=== PATIENT | female | born 1980 | race Caucasian/White ===

== ENCOUNTER 2016-12-16 05:43 | Emergency (ER) | payer MEDICAID ==
[2015-04-21 09:58] VITALS: BMI 37.0
[~2016-12-16 05:43] MED LIST: ADIPEX-P37.5 MG PO; AUGMENTIN 875-11 TAB PO; CYCLOBENZAPRINE10 MG PO; HYDROCODONE-APA1 TAB PO; IBUPROFEN600 MG PO; IBUPROFEN800 MG PO; PERCOCET 10/3251 TA1 PO; PERCOCET 5-3251 TAB PO; SOMA350 MG PO; TYLENOL #4 W/CO1 TAB PO
[2016-12-17] MEDS ORDERED: CELEXA40 MG PO (14:20)
[2016-12-17] MEDS ORDERED: KLONOPIN1 MG PO (14:20)
[2016-12-17] MEDS ORDERED: TYLENOL #4 W/CO1 TAB PO (14:21)
== END 2016-12-16 06:58 | disposition home or self-care (01) ==
LOC: D.ER 05:43
DX: M54.5 Low back pain (principal); G89.29 Other chronic pain; F17.200 Nicotine dependence, unspecified, uncomplicated

== ENCOUNTER 2016-12-16 09:31 | Emergency (ER) | payer MEDICAID ==
[2015-04-21 09:58] VITALS: BMI 37.0
[2016-12-16 11:00] LABS: BASOPHILS 0.2 % (0.0-2.0); EOSINOPHILS 0.2 % (0-7); HEMATOCRIT 44.4 % (36.0-48.0); HEMOGLOBIN 14.9 g/dL (12-16); IMMATURE GRANULOCYTES 0.5 % (0-5); LYMPHOCYTES 7.2 % (15-50); MCH 31.6 pg (26.0-34.0); MCHC 33.6 g/dL (31.0-37.0); MCV 94.1 fL (80.0-100.0); MEAN PLATELET VOLUME 9.8 fL (7.4-10.4); MONOCYTES 1.2 % (2-11); NEUTROPHILS 90.7 % (40-80); RBC 4.72 10x6/uL (4.00-5.40); RDW 14.1 % (11.5-14.5); WBC 13.2 10x3/uL (4.8-10.8)
[2016-12-16 11:01] LABS: PLATELET COUNT 266 10x3/uL (130-400)
[2016-12-16 11:10] LABS: ALBUMIN 3.5 g/dL (3.4-5.0); ALKALINE PHOSPHATASE 99 U/L (46-116); ALT (SGPT) 132 U/L (10-68); BILIRUBIN - TOTAL 0.33 mg/dL (0.2-1.3); CALC OSMOLALITY 274 mosm/kg (275-300); CALCIUM 8.9 mg/dL (8.5-10.1); CARBON DIOXIDE 27.1 mmol/L (21.0-32.0); CHLORIDE - SERUM 103 mmol/L (98-107); CREATININE - SERUM 0.8 mg/dL (0.6-1.3); GLUCOSE 137 mg/dL (74-106); POTASSIUM - SERUM 4.3 mmol/L (3.5-5.1); PROTEIN - SERUM 7.1 g/dL (6.4-8.2); SODIUM 137 mmol/L (136-145); UREA NITROGEN 9 mg/dL (7-18); eGFR NON AFRICAN AMERICAN 85 mL/min (90-120)
[2016-12-17] MEDS ORDERED: CELEXA40 MG PO (14:20)
[2016-12-17] MEDS ORDERED: KLONOPIN1 MG PO (14:20)
[2016-12-17] MEDS ORDERED: TYLENOL #4 W/CO1 TAB PO (14:21)
== END 2016-12-16 15:32 | disposition home or self-care (01) ==
LOC: D.ER 09:31
PROVIDERS: Emergency Medicine
DX: K80.50 Calculus of bile duct without cholangitis or cholecystitis without obstruction (principal); R10.11 Right upper quadrant pain

== ENCOUNTER 2016-12-17 13:05 | Inpatient (IN) | payer MEDICAID ==
[~2016-12-17] VITALS: Ht 149.9 cm; Wt 91.5 kg
[2016-12-17 14:09] LABS: BASOPHILS 0.1 % (0.0-2.0); EOSINOPHILS 0.2 % (0-7); HEMATOCRIT 41.7 % (36.0-48.0); HEMOGLOBIN 14.2 g/dL (12-16); IMMATURE GRANULOCYTES 0.6 % (0-5); LYMPHOCYTES 19.8 % (15-50); MCH 31.7 pg (26.0-34.0); MCHC 34.1 g/dL (31.0-37.0); MCV 93.1 fL (80.0-100.0); MEAN PLATELET VOLUME 9.7 fL (7.4-10.4); MONOCYTES 5.5 % (2-11); NEUTROPHILS 73.8 % (40-80); PLATELET COUNT 260 10x3/uL (130-400); RBC 4.48 10x6/uL (4.00-5.40); RDW 14.1 % (11.5-14.5)
[2016-12-17 14:11] LABS: WBC 17.9 10x3/uL (4.8-10.8)
--- NOTE | 2016-12-17 14:18 | NUR ---
PT ARRIVED TO ROOM WITH AT BEDSIDE. ORIENTED TO FLOOR AND SITUATION. WILL BEGIN ADMISSION WORK-UP AT THIS TIME.
[2016-12-17] MEDS ORDERED: CELEXA40 MG PO (14:20)
[2016-12-17] MEDS ORDERED: KLONOPIN1 MG PO (14:20)
[2016-12-17] MEDS ORDERED: TYLENOL #4 W/CO1 TAB PO (14:21)
[2016-12-17 14:23] VITALS: BP 150/86; BMI 37.9
[2016-12-17 14:23] LABS: INR 0.89 (0.85-1.17); PROTIME 11.8 SECONDS (11.6-15.0)
[2016-12-17 14:28] LABS: ALBUMIN 3.5 g/dL (3.4-5.0); ALKALINE PHOSPHATASE 80 U/L (46-116); AMYLASE - SERUM 58 U/L (25-115); BILIRUBIN - TOTAL 0.28 mg/dL (0.2-1.3); CALC OSMOLALITY 276 mosm/kg (275-300); CALCIUM 8.6 mg/dL (8.5-10.1); CARBON DIOXIDE 28.5 mmol/L (21.0-32.0); CHLORIDE - SERUM 105 mmol/L (98-107); CREATININE - SERUM 0.7 mg/dL (0.6-1.3); GLUCOSE 95 mg/dL (74-106); LIPASE 98 U/L (73-393); POTASSIUM - SERUM 3.7 mmol/L (3.5-5.1); PROTEIN - SERUM 6.8 g/dL (6.4-8.2); SODIUM 140 mmol/L (136-145); UREA NITROGEN 7 mg/dL (7-18); eGFR NON AFRICAN AMERICAN > 90 mL/min (90-120)
[2016-12-17 14:30] LABS: ALT (SGPT) 69 U/L (10-68)
[2016-12-17 15:28] LABS: APPEARANCE CLEAR (CLEAR); BILIRUBIN NEGATIVE (NEGATIVE); COLOR YELLOW (YELLOW); GLUCOSE NEGATIVE (NEGATIVE); KETONE NEGATIVE (NEGATIVE); LEUKOCYTE ESTERASE TRACE (NEGATIVE); NITRITE NEGATIVE (NEGATIVE); PROTEIN NEGATIVE (NEGATIVE); SPECIFIC GRAVITY 1.015 (1.005-1.020); UROBILINOGEN NORMAL (NORMAL)
[2016-12-17 15:31] LABS: UDS - AMPHET NEGATIVE QUAL (NEGATIVE); UDS - BARB NEGATIVE QUAL (NEGATIVE); UDS - BENZO NEGATIVE QUAL (NEGATIVE); UDS - COCAINE NEGATIVE QUAL (NEGATIVE); UDS - METH NEGATIVE QUAL (NEGATIVE); UDS - OPIATE POSITIVE QUAL (NEGATIVE); UDS - PCP NEGATIVE QUAL (NEGATIVE); UDS - THC NEGATIVE QUAL (NEGATIVE)
[2016-12-17 15:33] LABS: BACTERIA MODERATE /hpf (NONE SEEN); RED CELLS - URINE 0-5 /hpf (0-5)
[2016-12-17 15:34] LABS: MUCUS <1+ /lpf (NONE SEEN)
--- NOTE | 2016-12-17 15:34 | NUR ---
22 GUAGE PLACED TO L.FA X1 ATTEMPT. [address] R[address]FA [address] SCAN DRSG CDI AND SWAB CAPS IN USE. PT SITTING UP IN BED RESTING QUIETLY DENIES ANY CURRENT NEEDS. WILL CPOC.
[2016-12-17 17:19] VITALS: BP 124/74
--- NOTE | 2016-12-17 20:33 | NUR ---
RESTING IN BED. SOUNDLY ASLEEP. AT BEDSIDE. NONLABORED RESPIRATIONS ON ROOM AIR. PIV TO LFA WITH D5.45NS @ 125ML/HR. PT ALSO HAS 20G IN RFA THAT IS SALINE LOCKED. STATES HE "WATCHES THE TIME" TO MAKE SURE SHE GETS THE NEEDED PAIN MEDS SOON POSSIBLE. WILL MONITOR.
[2016-12-17 21:08] VITALS: BP 114/79
--- NOTE | 2016-12-17 22:27 | NUR ---
IVF INFUSING. REQUESTED PAIN AND NAUSEA MEDS GIVEN. PT DECLINED KLONOPIN, SAYING SHE HAS ALREADY TAKEN HER HOME MED ON THIS MED AND CELEXA. WILL MONITOR.
--- NOTE | 2016-12-17 22:40 | NUR ---
PT AWAKE AND WANTING HER DEMEROL AND HER ZOFRAN FOR PAIN AND NAUSEA. MEDS ADMINISTERED. PT ADMITTED THAT SPOUSE HAD GIVEN HER HOME MEDS OF KLONOPIN AND CELEXA.
--- NOTE | 2016-12-17 23:00 | NUR ---
IV ABT UP AND INFUSING. CALL LIGHT IN REACH. CPOC.
[2016-12-18 00:07] VITALS: BP 108/54
[2016-12-18 04:15] VITALS: BP 108/68
[2016-12-18 06:27] LABS: BASOPHILS 0.3 % (0.0-2.0); EOSINOPHILS 0.7 % (0-7); HEMATOCRIT 41.3 % (36.0-48.0); HEMOGLOBIN 13.6 g/dL (12-16); IMMATURE GRANULOCYTES 0.6 % (0-5); LYMPHOCYTES 40.5 % (15-50); MCH 31.3 pg (26.0-34.0); MCHC 32.9 g/dL (31.0-37.0); MCV 94.9 fL (80.0-100.0); MEAN PLATELET VOLUME 9.9 fL (7.4-10.4); MONOCYTES 7.3 % (2-11); NEUTROPHILS 50.6 % (40-80); PLATELET COUNT 254 10x3/uL (130-400); RBC 4.35 10x6/uL (4.00-5.40); RDW 14.6 % (11.5-14.5)
--- NOTE | 2016-12-18 06:29 | NUR ---
AND SPOUSE HAVE BEEN SOUNDLY ASLEEP SINCE LAST DOSE OF IV PAIN MED AND IV ZOFRAN ADMINISTERED. TELLING NURSE THAT PT NEEDED TO HAVE RECIEVED THE PAIN MED "EXACTLY EVERY 4 HOURS" FOR IT TO WORK. EXPLAINED TO SPOUSE THAT PT AND HE WERE SOUNDLY SLEEPING WHEN THE 4 HOUR TIME TAMMY CAME AROUND, SO THIS NURSE ALLOWED THEM TO SLEEP PAIN MEDICATION IS " NEEDED". WILL MONITOR.
[2016-12-18 06:40] LABS: CALC OSMOLALITY 276 mosm/kg (275-300); CALCIUM 8.1 mg/dL (8.5-10.1); CARBON DIOXIDE 28.4 mmol/L (21.0-32.0); CHLORIDE - SERUM 106 mmol/L (98-107); CREATININE - SERUM 0.8 mg/dL (0.6-1.3); GLUCOSE 102 mg/dL (74-106); POTASSIUM - SERUM 3.9 mmol/L (3.5-5.1); SODIUM 140 mmol/L (136-145); UREA NITROGEN 7 mg/dL (7-18); eGFR NON AFRICAN AMERICAN 85 mL/min (90-120)
--- NOTE | 2016-12-18 07:36 | NUR ---
LAYING ON RIGHT SIDE, DENIES NEEDS AT THIS TIME. NPO STATUS AT THIS TIME. D 5 1/2 NS NS INFUSING AT 125 CC/HR, RIGHT FA SEEN WITH SALINE LOCK. WILL CONTINUE TO MONITOR.
[2016-12-18 08:06] VITALS: BP 115/65
[2016-12-18 10:25] VITALS: Ht 149.9 cm; Wt 91.5 kg
[2016-12-18 11:55] VITALS: BP 135/88
[2016-12-18 12:47] LABS: ALBUMIN 2.9 g/dL (3.4-5.0); BILIRUBIN - INDIRECT 0.26 mg/dL (0.00-1.00); BILIRUBIN - TOTAL 0.31 mg/dL (0.2-1.3); PROTEIN - SERUM 5.9 g/dL (6.4-8.2)
[2016-12-18 12:48] LABS: BILIRUBIN - DIRECT 0.05 mg/dL (0.00-0.30)
--- NOTE | 2016-12-18 13:01 | NUR ---
PATIENT AND SPOUSE ARE ASLEEP IN THE BED TOGETHER. WILL CONTINUE TO MONITOR.
--- NOTE | 2016-12-18 14:52 | NUR ---
PATIENT RATES PAIN 9/10 TO BACK AREA. TEXTING ON PHONE. REQUESTING JELLO, GIVEN. WILL CONTINUE TO MONITOR.
[2016-12-18 15:03] VITALS: BP 144/83
--- NOTE | 2016-12-18 15:04 | NUR ---
PATIENT UP AMBULATING HALLWAY WITH SPOUSE. INSTRUCTED TO NOT LEAVE THE FLOOR, STATES TO UNDERSTANDING.
--- NOTE | 2016-12-18 19:03 | NUR ---
LAYING IN BED, AAOX3, SKIN WARM AND DRY, RESP UNLABORED, COMPLAINING OF LOWER ABDOMEN PAIN LEVEL 9, DEMEROL AND ZOFRAN GIVEN IVP, IV PATENT TO LEFT FOREARM, FAMILY AT BEDSIDE, NO DISTRESS NOTED
[2016-12-18 21:26] VITALS: BP 130/71
[2016-12-19 00:30] VITALS: BP 142/68
--- NOTE | 2016-12-19 00:54 | NUR ---
ROUGE MILLER AT BEDSIDE FOR VS. NEEDS ADDRESSED, CALL LIGHT IN REACH. WILL CONT TO MONITOR.
[2016-12-19 04:30] VITALS: BP 122/83
--- NOTE | 2016-12-19 06:45 | NUR ---
RESTING QUIELTY IN BED, NO DISTRESS NOTED
--- NOTE | 2016-12-19 07:26 | NUR ---
AM ROUNDING MADE WITH PATIENT APPEARING TO BE ASLEEP. SPOUSE AT BEDSIDE ASLEEP. IV SEEN TO LEFT FA OF D 5 1/2 NS INFUSING AT 20 CC/HR. ON ROOM AIR. WILL CONTINUE TO MONITOR
[2016-12-19 08:13] VITALS: BP 119/68
--- NOTE | 2016-12-19 09:18 | NUR ---
PATIENT REQUESTING DEMEROL AND ZOFRAN, RATES PAIN 9/10 TO BACK AND ABDMINAL AREA. IN BED WITH PATIENT. WATCHING TV. MEDS GIVEN PER REQUEST. WANTS TO TRY REGULAR FOOD FOR LUNCH, WILL ORDER.
[2016-12-19 12:43] VITALS: BP 114/57
--- NOTE | 2016-12-19 14:51 | NUR ---
1450-PATIENT AND NOW AWAKE, BEEN SLEEPING TOGETHER IN THE BED ON THEIR LEFT SIDE. COMPLAINTS OF PAIN 9/10 TO BACK AND STOMACH AREA. REQUESTING DEMERAOL AND ZOFRAN, GIVEN. WILL CONTINUE TO MONITOR.
[2016-12-19 16:00] VITALS: BP 115/47
--- NOTE | 2016-12-19 16:51 | NUR ---
9290-PATIENT AND UP AMBULATING IN HALLWAY. GAIT IS STEADY. WILL CONTINUE TO MONITOR.
--- NOTE | 2016-12-19 19:45 | NUR ---
RESUMED CARE OF PT, LYING IN BED RESPIRATIONS EVEN AND UNLABORED ON ROOM AIR. LEFT FOREARM INFUSING D5 1/2 NS @ 20. AT BEDSIDE. REQUESTS PAIN MEDICATION ALONG WITH CLONAPIN. CALL LIGHT IN REACH. WILL CONTINUE TO MONITOR. SEE NURSE ASSESSMENT.
[2016-12-19 21:24] VITALS: BP 100/60
[2016-12-20 00:30] VITALS: BP 135/80
--- NOTE | 2016-12-20 01:33 | NUR ---
WAX ENGRAVER AT BEDSIDE TO OBTAIN VITALS, CALL LIGHT IN REACH. WILL CONTINUE WITH PLAN OF CARE.
[2016-12-20 04:30] VITALS: BP 128/65
--- NOTE | 2016-12-20 06:40 | NUR ---
DEMEROL GIVEN FOR BACK, ABDOMINAL, AND LEG PAIN. FAMILY AT BEDSIDE. CALL LIGHT IN REACH.
[2016-12-20 08:32] VITALS: BP 139/74
[2016-12-20 12:30] VITALS: BP 112/60
[2016-12-20 16:44] VITALS: BP 116/58
[2016-12-20 20:36] VITALS: BP 119/51
--- NOTE | 2016-12-20 23:39 | NUR ---
MARKETING ANALYTICS LEAD AT BEDSIDE FOR VS, NEEDS ADDRESSED AT THIS TIME. CALL LIGHT IN REACH. CONT TO MONITOR.
--- NOTE | 2016-12-21 01:15 | NUR ---
IV INFILTRATED, HAD ICU COME TRY TO RESITE, THEY TRIED FOUR ATTEMTS,
[2016-12-21 01:19] VITALS: BP 133/69
[2016-12-21 05:06] VITALS: BP 124/72
[2016-12-21 05:36] LABS: BASOPHILS 0.3 % (0.0-2.0); EOSINOPHILS 1.2 % (0-7); HEMOGLOBIN 13.2 g/dL (12-16); IMMATURE GRANULOCYTES 0.7 % (0-5); LYMPHOCYTES 33.6 % (15-50); MCH 31.3 pg (26.0-34.0); MCV 94.8 fL (80.0-100.0); MEAN PLATELET VOLUME 9.7 fL (7.4-10.4); NEUTROPHILS 55.2 % (40-80); PLATELET COUNT 251 10x3/uL (130-400); RBC 4.22 10x6/uL (4.00-5.40); RDW 13.9 % (11.5-14.5); WBC 9.7 10x3/uL (4.8-10.8)
--- NOTE | 2016-12-21 05:50 | NUR ---
VISITING WITH , CALL LIGHT IN REACH
[2016-12-21 05:51] LABS: CALC OSMOLALITY 276 mosm/kg (275-300); CALCIUM 8.4 mg/dL (8.5-10.1); CARBON DIOXIDE 28.2 mmol/L (21.0-32.0); CHLORIDE - SERUM 103 mmol/L (98-107); CREATININE - SERUM 0.8 mg/dL (0.6-1.3); GLUCOSE 103 mg/dL (74-106); POTASSIUM - SERUM 4.2 mmol/L (3.5-5.1); SODIUM 139 mmol/L (136-145); UREA NITROGEN 9 mg/dL (7-18); eGFR NON AFRICAN AMERICAN 85 mL/min (90-120)
[2016-12-21 08:12] VITALS: BP 122/77
--- NOTE | 2016-12-21 08:53 | NUR ---
IV access-22 gauge inserted in right hand x 1 for saline lock. Marla ApodacaRN
[2016-12-21 12:14] VITALS: BP 144/79
--- NOTE | 2016-12-21 15:46 | NUR ---
Patient Name: BEREKET ROMANO Admission Status: Elective Accout number: [id number] Admission Date: 12-17-2016 : 1980 Admission Diagnosis:RIGHT LOWER QUADRANT PAIN Attending: CAITLIN Current LOS: 4 Anticipated DC Date: Planned Disposition: Home Primary Insurance: MEDICAID [place] Discharge Planning Comments: * Is the patient Alert and Oriented? Yes 0 * How many steps to enter\exit or inside your home? NONE 0 * PCP DR. CHANTALE TRIVEDI 0 * Pharmacy [facility] 0 * Preadmission Environment Home with Family 0 * ADLs Independent 0 * Equipment Nebulizer 0 * Other Equipment NO MEDICAL EQUIPMENT PROVIDER PREFERENCE 0 * List name and contact numbers for known caregivers / representatives who currently or will assist patient after discharge: ALEXIS MORENO, 0 * Community resources currently utilized None 0 * Please name any agencies selected above. NONE 0 * Additional services required to return to the preadmission environment? No 0 * Can the patient safely return to the preadmission environment? Yes 0 * Has this patient been hospitalized within the prior 30 days at any hospital? No 0 CM MET WITH PT IN ROOM TO DISCUSS DISCHARGE PLANNING AND NEEDS. PT REPORTS LIVING AT HOME INDEPENDENTLY WITH HER ALEXIS. PT HAS A NEBULIZER AND NO MEDICAL EQUIPMENT PROVIDER. PT HAS NO OUTSIDE SERVICES ASSISTING IN THE HOME. CM DISCUSSED AVAILABILITY OF HOME HEALTH, REHAB SERVICES AND MEDICAL EQUIPMENT. PT DENIES DISCHARGE NEEDS, REPORTS HER ALEXIS WILL PICK HER UP FOR DISCHARGE HOME. PT PLANS TO DISCHARGE HOME WITH ALEXIS WITH NO ANTICIPATED DISCHARGE NEEDS. CM TO FOLLOW AND ASSIST NEEDED. Per Diem Nurse: Angel Hilario
[2016-12-21 15:59] VITALS: BP 112/65
--- NOTE | 2016-12-21 18:42 | NUR ---
CONSENTS OBTAINED FOR PROCEDURE WITH AND FOR TOMORROW. PT VERBALIZES UNDERSTANDING TO BE NPO AFTER MIDNIGHT. NO FURTHER NEEDS AT THIS TIME. CL IN REACH, BED IN LOWEST, SIDE RAILS X2. WILL CPOC.
--- NOTE | 2016-12-21 19:32 | NUR ---
RECEIVED REPORT, PT VISITING WITH FAMILY, CAMILLEHAND-D5 10/25 NS@ 75, DENIES ANY NEEDS, CALL LIGHT IN REACH, WILL CONTINUE TO MONITOR
[2016-12-21 20:00] VITALS: BP 126/71
--- NOTE | 2016-12-21 23:44 | NUR ---
VACUUM EVAPORATION OPERATOR AT BEDSIDE FOR VS, NEEDS ADDRESSED. CALL LIGHT IN REACH.CONT TO MONITOR.
[2016-12-22] VITALS: BP 113/65
--- NOTE | 2016-12-22 01:54 | NUR ---
SLEEPING, AT BEDSIDE, CALL LIGHT IN REACH
[2016-12-22 04:00] VITALS: BP 161/94
--- NOTE | 2016-12-22 07:20 | NUR ---
RECEIVED REPORT FROM NIGHT NURSE. PATIENT GONE TO OR.
--- NOTE | 2016-12-22 10:53 | NUR ---
THE PATIENT APPEARS SEDATED AND IS SLEEPING. WHEN AWAKENED SHE REPORTS PAIN OF A 10.
[2016-12-22 11:18] VITALS: BP 143/89
--- NOTE | 2016-12-22 12:20 | NUR ---
1130 BACK FROM OR . WARM AND DRY ABEBE DRAINING YELLOW URING. DRESSING CDI. CO PAIN. DEMEROL BI ARCHITECT STARTED. 1.8 MG FOR PRIMING. PATIENT CTDB. WILL CONTINUE TO MONITOR.
[2016-12-22 12:45] VITALS: BP 136/77
[2016-12-22 13:36] LABS: ANION GAP 14.3 mmol/L (8-16); CALCIUM 8.6 mg/dL (8.5-10.1); CARBON DIOXIDE 26.6 mmol/L (21.0-32.0); CREATININE - SERUM 0.9 mg/dL (0.6-1.3); POTASSIUM - SERUM 3.9 mmol/L (3.5-5.1)
--- NOTE | 2016-12-22 14:27 | NUR ---
INFORMED PATIENT SHE IS ON A CLEAR LIQUID DIET. HAS BROUGHT A MILKSHAKE. INFORMED PATIENT SHE CAN NOT DRINK THE SHAKE. PATIENT REPLIED WHEN NURSE LEAVES THE ROOM, SHE WILL DRINK IT. INFORMED PATIENT OF CONSQUENCES OF NOT STAYING ON CLEAR LIQUID DIET. ALSO PATIENT WANTED ONLY HER CELEXA. WHEN NURSE CAME TO ROOM TO GIVE CELEXA, PATIENT DECIDED SHE WANTED KLOPIN AND FLEXERIL. BOTH WERE GIVEN. PT ALSO WAS GIVEN ZOFRAN IV FOR NAUSEA. PT CTDB.
--- NOTE | 2016-12-22 16:53 | NUR ---
CO PAIN EVEN WITH CONT DEMEROL HAND STONER. TORADOL GIVEN SCHEDULED. PT RESTING QUIETLY ON TABLET. CLEAR LIQUID TRAY IN.
[2016-12-22 17:41] VITALS: BP 139/76
--- NOTE | 2016-12-22 19:30 | NUR ---
RECEIVED REPORT, IV-R.HAND-LR@ 100, ON TOOLMAKER PUMP-10MG, Q10MIN, Q4HRS LOCKOUT, HAS ANDRAE, AT BEDSIDE, CALL LIGHT IN REACH, WILL CONTINUE TO MONITOR
[2016-12-22 20:00] VITALS: BP 137/77
[2016-12-23] VITALS: BP 114/70
--- NOTE | 2016-12-23 00:14 | NUR ---
FINISHER FIBERGLASS BOAT PARTS AT BEDSIDE TO OBTAIN VITALS, CALL LIGHT IN REACH. WILL CONTINUE WITH PLAN OF CARE.
[2016-12-23 04:00] VITALS: BP 140/82
[2016-12-23 06:12] LABS: BASOPHILS 0.1 % (0.0-2.0); EOSINOPHILS 0.9 % (0-7); HEMOGLOBIN 13.2 g/dL (12-16); IMMATURE GRANULOCYTES 0.5 % (0-5); LYMPHOCYTES 13.3 % (15-50); MCH 32.2 pg (26.0-34.0); MCHC 33.8 g/dL (31.0-37.0); MCV 95.1 fL (80.0-100.0); MEAN PLATELET VOLUME 9.9 fL (7.4-10.4); MONOCYTES 6.8 % (2-11); NEUTROPHILS 78.4 % (40-80); PLATELET COUNT 247 10x3/uL (130-400); RDW 14.2 % (11.5-14.5); WBC 17.6 10x3/uL (4.8-10.8)
[2016-12-23 06:40] LABS: CALC OSMOLALITY 278 mosm/kg (275-300); CALCIUM 8.7 mg/dL (8.5-10.1); CARBON DIOXIDE 28.3 mmol/L (21.0-32.0); CHLORIDE - SERUM 104 mmol/L (98-107); CREATININE - SERUM 0.7 mg/dL (0.6-1.3); POTASSIUM - SERUM 4.4 mmol/L (3.5-5.1); SODIUM 141 mmol/L (136-145); UREA NITROGEN 7 mg/dL (7-18); eGFR NON AFRICAN AMERICAN > 90 mL/min (90-120)
[2016-12-23 06:45] LABS: GLUCOSE 104 mg/dL (74-106)
--- NOTE | 2016-12-23 07:25 | OP ---
PATIENT NAME: BEREKET ROMANO MEDICAL RECORD: [id number] :78 LOCATION:D.M2 D.2129 ADMISSION DATE:12/17/16 SURGEON: CONSUELO JENNINGS MD DATE OF OPERATION: 12/22/2016 PREOPERATIVE DIAGNOSES: Pelvic pain, ovarian cyst. POSTOPERATIVE DIAGNOSES: Pelvic pain, ovarian cyst. PROCEDURE: Laparoscopy, laparotomy, lysis of adhesions, right salpingo-oophorectomy. SURGEON: Consuelo Jennings MD ANESTHESIA: General. FINDINGS: Multiple adhesions precluding adequate visualization of the right adnexa with the laparoscope. A 4-5 cm cystic mass in the right adnexa consistent with right ovary and tube. ESTIMATED BLOOD LOSS: 100 cc. COMPLICATIONS OF SURGERY: None. OPERATIVE NOTE: The patient was taken to the OR and under adequate general anesthesia, prepped and draped in the usual manner for abdominal and vaginal procedures with legs in floating boot Carl stirrups. A sponge stick was placed in the vagina to allow manipulation of the vaginal apex. Singh catheter was inserted. An elliptical incision was then made at the umbilicus and extended through subcutaneous tissue and fascia and peritoneum. The laparoscopic trocar sleeve was then inserted and visualization with the laparoscope revealed the above listed findings. It was not possible to visualize the right adnexa even after making a second puncture in the left lower quadrant in order to allow operative instruments to manipulate that area laparoscopy was then abandoned. Instruments removed. A transverse incision made in the lower abdomen and extended in a Pfannenstiel manner through subcutaneous tissue and fascia. Muscles divided in the midline. Careful dissection was begun to free the right adnexa, this took a considerable amount of care and time. Upon the exposure of the right adnexa, a 4-5 cm cystic appearing mass consistent with ovary and tube was encountered much time was taken to free the cystic structure intact, which was sent to pathology for further evaluation. Bowel was intact. The ureter was observed peristalsing on the right with no injury to bowel or ureter seen. The pelvis was then copiously irrigated and suctioned. A #1 chromic suture had been used for the infundibulopelvic ligament on the right. There was no further bleeding. Sponge and needle counts were correct. The fascial layer was then closed with a running noninterlocking #1 PDS loop suture. Skin reapproximated in 2 layers, first layer running noninterlocking 2-0 plain gut suture, followed by a subcuticular 2-0 plain gut suture. Dermabond was applied. Steri-Strip dressing was applied pressure dressing applied. Fascial layer at the umbilicus closed with a single interrupted #1 Vicryl suture closing the fascia. Laparoscopic skin incisions closed using Dermabond with Steri-Strip dressings then applied. At the end of procedure, sponge stick was removed from the vagina and again, all sponge and instrument and needle counts correct. The patient went to the recovery area in good condition. OPERATIVE REPORT [id number] BERNARDINO ROMANORamona CARRENONIKKO TRANSINT:[id number] Voice Confirmation ID: [id number] DOCUMENT ID: [id number] CONSUELO JENNINGS MD at 0725 CC: [id number] DICTATION DATE: 12/22/16 1219 DIAMOND SIZER: 12/22/16 1743 ADM IN [place] [id number] [place] [id number]
--- NOTE | 2016-12-23 07:30 | NUR ---
RECEIVED PT IN BED AAOX4 RESP UNLABORED SKIN W/D COLOR WNL NAD NOTED
[2016-12-23 07:49] VITALS: BP 136/78
[2016-12-23 12:36] VITALS: BP 110/51
[2016-12-23 16:21] VITALS: BP 101/57
[2016-12-23 20:00] VITALS: BP 106/52
[2016-12-24] VITALS: BP 123/68
[2016-12-24 04:00] VITALS: BP 135/77
[2016-12-24 06:21] LABS: BASOPHILS 0.2 % (0.0-2.0); EOSINOPHILS 1.6 % (0-7); HEMATOCRIT 35.8 % (36.0-48.0); HEMOGLOBIN 11.6 g/dL (12-16); IMMATURE GRANULOCYTES 0.8 % (0-5); LYMPHOCYTES 23.1 % (15-50); MCH 31.4 pg (26.0-34.0); MCHC 32.4 g/dL (31.0-37.0); MCV 96.8 fL (80.0-100.0); MEAN PLATELET VOLUME 10.4 fL (7.4-10.4); MONOCYTES 8.5 % (2-11); NEUTROPHILS 65.8 % (40-80); PLATELET COUNT 259 10x3/uL (130-400); RDW 14.9 % (11.5-14.5); WBC 13.6 10x3/uL (4.8-10.8)
[2016-12-24 06:35] LABS: ANION GAP 11.3 mmol/L (8-16); CALCIUM 8.4 mg/dL (8.5-10.1); CARBON DIOXIDE 29.7 mmol/L (21.0-32.0)
[2016-12-24 06:36] LABS: CREATININE - SERUM 0.9 mg/dL (0.6-1.3)
--- NOTE | 2016-12-24 07:32 | NUR ---
PT SITTING UP IN BED DENIES NEEDS WILL CONT TO MONITOR
[2016-12-24 08:13] VITALS: BP 122/59
[2016-12-24 11:52] VITALS: BP 144/73
[2016-12-24] MEDS ORDERED: NICODERM C1 PATCH .2 TD (12:32)
--- NOTE | 2016-12-24 12:33 | NUR ---
PT GOING HOME. DC PIV PER PT REQUEST. WASTED WASTE MANAGEMENT SPECIALIST MEDICATION IN PYXIS. WAITING ON DC ORDERS TO BE PLACED IN COMPUTER. THEN WILL WORK ON DC PAPERWORK
[2016-12-24] MEDS ORDERED: PEPCID20 MG PO (12:34)
[2016-12-24] MEDS ORDERED: K-DUR20 MEQ PO (12:38)
[2016-12-24] MEDS ORDERED: LASIX20 MG PO (12:38)
[2016-12-24] MEDS ORDERED: ZOFRAN ODT4 MG/UDTAB PO (12:39)
[2016-12-24] MEDS ORDERED: NYSTATIN ORAL SU5 ML PO (12:39)
[2016-12-24] MEDS ORDERED: ESTRADERM 0.00.05 MG TRANSDERM (12:42)
[2016-12-24] MEDS ORDERED: Demerol PO (12:42)
--- NOTE | 2016-12-24 13:25 | NUR ---
WENT OVER DC PAPERWORK WITH PT PT VERBALIZES UNDERSTANDING. GIVEN PT WRITTEN SCRIPTS FOR DEMORAL AND IBUPROFEN GIVEN. PT REFUSED WHEELCHAIR AND WALKED OUT WITH HER .
== END 2016-12-24 13:27 | disposition home or self-care (01) | DRG 743 ==
LOC: D.M2 13:05
PROVIDERS: Family Medicine; Internal Medicine Gastroenterology; Obstetrics & Gynecology; ADMIT Emergency Medicine
PROC: 0UT04ZZ Resection of Right Ovary, Percutaneous Endoscopic Approach (ICD-10-PCS; principal; 2016-12-22 09:30)
PROC: 0UN04ZZ Release Right Ovary, Percutaneous Endoscopic Approach (ICD-10-PCS; 2016-12-22 09:30)
DX: N83.291 Other ovarian cyst, right side (principal); R10.31 Right lower quadrant pain; R10.13 Epigastric pain; K76.0 Fatty (change of) liver, not elsewhere classified; K66.0 Peritoneal adhesions (postprocedural) (postinfection)

== ENCOUNTER 2016-12-29 19:20 | Emergency (ER) | payer MEDICAID ==
[2016-12-18 10:25] VITALS: BMI 37.1
[~2016-12-29 19:20] MED LIST changes: +CELEXA40 MG PO; +Demerol PO; +ESTRADERM 0.00.05 MG TRANSDERM; +K-DUR20 MEQ PO; +KLONOPIN1 MG PO; +LASIX20 MG PO; +NICODERM C1 PATCH .2 TD; +NYSTATIN ORAL SU5 ML PO; +PEPCID20 MG PO; +ZOFRAN ODT4 MG/UDTAB PO
[2016-12-29 21:50] LABS: ALKALINE PHOSPHATASE 120 U/L (46-116); ALT (SGPT) 35 U/L (10-68); BILIRUBIN - TOTAL 0.34 mg/dL (0.2-1.3); CALC OSMOLALITY 269 mosm/kg (275-300); CARBON DIOXIDE 26.8 mmol/L (21.0-32.0); CHLORIDE - SERUM 101 mmol/L (98-107); CREATININE - SERUM 0.8 mg/dL (0.6-1.3); GLUCOSE 97 mg/dL (74-106); POTASSIUM - SERUM 4.2 mmol/L (3.5-5.1); PROTEIN - SERUM 7.5 g/dL (6.4-8.2); SODIUM 136 mmol/L (136-145); UREA NITROGEN 6 mg/dL (7-18); eGFR NON AFRICAN AMERICAN 85 mL/min (90-120)
[2016-12-29 22:27] LABS: BASOPHILS 0.3 % (0.0-2.0); EOSINOPHILS 2.9 % (0-7); HEMATOCRIT 42.5 % (36.0-48.0); HEMOGLOBIN 14.1 g/dL (12-16); IMMATURE GRANULOCYTES 1.9 % (0-5); LYMPHOCYTES 24.9 % (15-50); MCHC 33.2 g/dL (31.0-37.0); MCV 93.4 fL (80.0-100.0); MEAN PLATELET VOLUME 9.9 fL (7.4-10.4); MONOCYTES 8.7 % (2-11); NEUTROPHILS 61.3 % (40-80); PLATELET COUNT 302 10x3/uL (130-400); RBC 4.55 10x6/uL (4.00-5.40); RDW 14.1 % (11.5-14.5); WBC 12.4 10x3/uL (4.8-10.8)
[2016-12-29 22:33] LABS: APPEARANCE CLEAR (CLEAR); BILIRUBIN NEGATIVE (NEGATIVE); COLOR YELLOW (YELLOW); GLUCOSE NEGATIVE (NEGATIVE); KETONE NEGATIVE (NEGATIVE); LEUKOCYTE ESTERASE TRACE (NEGATIVE); NITRITE NEGATIVE (NEGATIVE); PROTEIN NEGATIVE (NEGATIVE); UROBILINOGEN NORMAL (NORMAL)
[2016-12-29 22:34] LABS: BACTERIA MODERATE /hpf (NONE SEEN); EPITHELIAL CELLS 0-5 /hpf (0-5); RED CELLS - URINE 0-5 /hpf (0-5); WHITE CELLS - URINE 0-5 /hpf (0-5)
== END 2016-12-29 23:10 | disposition home or self-care (01) ==
LOC: D.ER 19:20
PROVIDERS: Emergency Medicine
DX: G89.18 Other acute postprocedural pain (principal); R50.82 Postprocedural fever; R50.9 Fever, unspecified; T81.4XXA Infection following a procedure, initial encounter; M54.9 Dorsalgia, unspecified; F17.200 Nicotine dependence, unspecified, uncomplicated

== ENCOUNTER 2017-01-02 17:37 | Emergency (ER) | payer MEDICARE ==
[2016-12-18 10:25] VITALS: BMI 37.1
[2017-01-02 19:10] LABS: BASOPHILS 1.6 % (0.0-2.0); EOSINOPHILS 8.9 % (0-7); HEMATOCRIT 41.3 % (36.0-48.0); HEMOGLOBIN 13.7 g/dL (12-16); IMMATURE GRANULOCYTES 3.1 % (0-5); LYMPHOCYTES 29.8 % (15-50); MCH 31.3 pg (26.0-34.0); MCHC 33.2 g/dL (31.0-37.0); MCV 94.3 fL (80.0-100.0); MONOCYTES 6.9 % (2-11); NEUTROPHILS 49.7 % (40-80); RBC 4.38 10x6/uL (4.00-5.40); RDW 13.5 % (11.5-14.5)
[2017-01-02 19:16] LABS: PLATELET COUNT 426 10x3/uL (130-400)
[2017-01-02 19:31] LABS: ALBUMIN 3.1 g/dL (3.4-5.0); ANION GAP 10.8 mmol/L (8-16); BILIRUBIN - TOTAL 0.22 mg/dL (0.2-1.3); CALCIUM 9.1 mg/dL (8.5-10.1); CARBON DIOXIDE 28.6 mmol/L (21.0-32.0); CREATININE - SERUM 0.9 mg/dL (0.6-1.3); POTASSIUM - SERUM 4.4 mmol/L (3.5-5.1); PROTEIN - SERUM 7.5 g/dL (6.4-8.2)
[2017-01-02 19:51] LABS: APPEARANCE CLEAR (CLEAR); BILIRUBIN NEGATIVE (NEGATIVE); COLOR STRAW (YELLOW); GLUCOSE NEGATIVE (NEGATIVE); KETONE NEGATIVE (NEGATIVE); LEUKOCYTE ESTERASE NEGATIVE (NEGATIVE); NITRITE NEGATIVE (NEGATIVE); PROTEIN NEGATIVE (NEGATIVE); SPECIFIC GRAVITY 1.015 (1.005-1.020); UROBILINOGEN NORMAL (NORMAL)
== END 2017-01-02 20:27 | disposition home or self-care (01) ==
LOC: D.ER 17:37
PROVIDERS: Family Medicine; Nurse Practitioner Acute Care
DX: G89.18 Other acute postprocedural pain (principal); F17.200 Nicotine dependence, unspecified, uncomplicated

== ENCOUNTER 2017-03-04 13:26 | Inpatient (IN) | payer MEDICAID ==
[~2017-03-04] VITALS: Ht 149.9 cm; Wt 94.8 kg
--- NOTE | ~2017-03-04 | OP ---
PATIENT NAME: BEREKET ROMANO MEDICAL RECORD: [id number] :78 LOCATION:D.MS [facility] ADMISSION DATE:03/06/17 SURGEON: RADHA ANDERSEN MD DATE OF OPERATION: 03/10/2017 PREOPERATIVE DIAGNOSES: 1. Chronic left lower quadrant wound. 2. Asthma. 3. Chronic obstructive pulmonary disease. 4. Tobacco dependence syndrome. 5. Gastroesophageal reflux disease. 6. Rheumatoid arthritis. POSTOPERATIVE DIAGNOSES: 1. Chronic left lower quadrant wound. 2. Asthma. 3. Chronic obstructive pulmonary disease. 4. Tobacco dependence syndrome. 5. Gastroesophageal reflux disease. 6. Rheumatoid arthritis. PROCEDURE: I&D of left lower quadrant wound with removal of suture granuloma. SURGEON: Radha Andersen MD. REPORT OF PROCEDURE: The patient's abdomen was prepped and draped in sterile fashion. A transverse incision was made overlying an area of indentation with a tract leading down towards the subcutaneous space. This was on the most lateral edge of a Pfannenstiel incision. As we opened up this tract, I could feel in the wound and felt a large collection of suture. As we dissected down to the suture, it was noted to be a Prolene suture. This suture was excised and completely removed. I saw no evidence of any further tract formation. There did not appear to be any tracts or cavities presenting medially. The entire skin tract leading down to the suture was removed and sent off for permanent specimen. At this point, we had just normal-appearing fatty tissue and at no point did we never see any signs of any purulence or infection. The subcutaneous tissues were irrigated out with peroxide and saline solution and then reapproximated with interrupted 3-0 Vicryl. A 10 mL of 0.25% Marcaine with epinephrine were infused into the surrounding tissues and the skin edge was reapproximated with running subcutaneous 5-0 Monocryl. We then dressed the wound with Dermabond. COMPLICATIONS: None. CONDITION: Stable. ANESTHESIA: General endotracheal and local. BLOOD LOSS: Minimal. TRANSINT:[id number] Voice Confirmation ID: [id number] DOCUMENT ID: [id number] OPERATIVE REPORT [id number] BEREKET ROMANO RADHA ANDERSEN MD CC: AMY JENNINGS MD [id number] DICTATION DATE: 03/10/17 1302 PATENT CLERK: 03/10/17 1447 ADM IN [facility] [address] [place] [address]
--- NOTE | ~2017-03-04 | CN ---
PATIENT NAME:BEREKET ROMANO MEDICAL RECORD: [id number] : 76 LOCATION:D.MS [facility]2201 ADMIT DATE: 03/04/17 ACCOUNT: [id number] CONSULTING PHYSICIAN: JESSICA RICCI MD REFERRING PHYSICIAN: CHANTALE LEUNG MD DATE OF CONSULTATION: 03/05/2017 Pulmonary Consultation CONSULT REQUESTING PHYSICIAN: Dr. Chantale Leung. REASON FOR CONSULTATION: Acute exacerbation of chronic obstructive pulmonary disease, dyspnea, acute cough. HISTORY OF PRESENT ILLNESS: Ms. Romano is a 36-year-old . She is sick for the last 3-4 days. Initially, she started coughing, wheezing and shortness of breath. Whenever she coughs, she becomes severe shortness of breath. She cannot hold her breath. The cough is productive of white yellow color sputum production. There is no associated fever or chill. REVIEW OF SYSTEMS: Mainly in the history of present illness. PAST MEDICAL HISTORY: 1. History of childhood asthma. 2. Hypertension. 3. Gastroesophageal reflux disease. 4. Fibromyalgia. 5. Osteoarthritis. 6. Rheumatoid arthritis. 7. Chronic insomnia. PAST SURGICAL HISTORY: 1. Left knee arthroscopic surgery. 2. Cholecystectomy. 3. times 2. 4. She has a right oophorectomy in December 2016 with nonhealing anterior abdominal wound. PERSONAL AND SOCIAL HISTORY: The patient is . She lives with her . She is smoking 1-2 packs per day. She is a nondrinker. FAMILY HISTORY: Significant for hypertension, diabetes and CVA. PHYSICAL EXAMINATION: GENERAL: Now, the patient is lying comfortably in bed. She is not in acute distress. VITAL SIGNS: The blood pressure is 100/42, pulse is 107, respirations 20, temperature 98.1, and SPO2 is 97% on room air. HEENT: Conjunctivae is pink, sclerae nonicteric. NECK: Supple, no JVD. CHEST: Excursion is minimal wheeze on forceful expiration. HEART: Rhythm regular, normal sound, no murmur. ABDOMEN: Soft. Bowel sounds present. No hepatosplenomegaly. RECTAL: Deferred. EXTREMITIES: No cyanosis, no clubbing, no pedal edema. CONSULT REPORT [id number] BEREKET ROMANO SKIN: Warm, normal turgor. CENTRAL NERVOUS SYSTEM: The patient is awake and alert. There is no obvious cranial nerve abnormality. The gait was not tested. There anterior abdominal wall wound. OTHER LABORATORY DATA: CBC: The WBC is 13.4, hemoglobin 12.6, hematocrit is 37.9. Chemistry: Sodium 139, potassium 3.7, BUN is 14, creatinine 0.9, glucose 91. CHEST RADIOGRAPH: There is no acute infiltrate. IMPRESSION: 1. Acute exacerbation of chronic obstructive pulmonary disease. 2. History of childhood asthma. 3. Acute cough. 4. Leukocytosis. 5. Tracheobronchitis. 6. Tobacco dependence syndrome. 7. Gastroesophageal reflux disease. 8. Rheumatoid arthritis. RECOMMENDATION: Adjust the dose of methylprednisolone IV, albuterol and ipratropium nebulizer, start on Brovana, budesonide and nebulizer, Mucinex DM 2 tablets b.i.d., Tessalon Perles 200 mg t.i.d. GERD precaution, give and start omeprazole 40 mg daily. Follow up labs in the morning. Dr. Leung, once again thanks for involving me in the care of Ms. Romano. TRANSINT:[id number] Voice Confirmation ID: [id number] DOCUMENT ID: [id number] JESSICA RICCI MD CC: VIAK LINK MD [id number] DICTATION DATE: 03/05/17 1320 RAIL ENGINEER: 03/05/17 1519 ADM IN [place] [id number] [place] [id number]
[2017-03-04] MEDS ORDERED: PHENERGAN25 M1 PO (17:24)
[2017-03-04] MEDS ORDERED: AUGMENTIN 500-11 TA1 PO (17:26)
[2017-03-04] MEDS ORDERED: HYDROCODONE-APA1 TAB PO (17:28)
[2017-03-04] MEDS ORDERED: ULTRAM50 MG PO (17:29)
[2017-03-04 17:44] VITALS: BP 117/52; BMI 42.3
[2017-03-04 18:40] LABS: BASOPHILS 0.3 % (0-2); EOSINOPHILS 1.9 % (0-7); HEMATOCRIT 37.9 % (36.0-48.0); HEMOGLOBIN 12.6 g/dL (12-16); IMMATURE GRANULOCYTES 0.6 % (0-5); LYMPHOCYTES 25.1 % (15-50); MCH 31.5 pg (26.0-34.0); MCHC 33.2 g/dL (31.0-37.0); MCV 94.8 fL (80.0-100.0); MEAN PLATELET VOLUME 9.5 fL (7.4-10.4); MONOCYTES 5.4 % (2-11); NEUTROPHILS 66.7 % (40-80); WBC 13.4 10x3/uL (4.8-10.8)
[2017-03-04 18:41] LABS: PLATELET COUNT 290 10x3/uL (130-400)
[2017-03-04 18:54] LABS: ALBUMIN 3.5 g/dL (3.4-5.0); ANION GAP 9.8 mmol/L (8-16); BILIRUBIN - TOTAL 0.38 mg/dL (0.2-1.3); CALCIUM 9.4 mg/dL (8.5-10.1); CARBON DIOXIDE 30.8 mmol/L (21.0-32.0); CREATININE - SERUM 0.9 mg/dL (0.6-1.3); POTASSIUM - SERUM 3.6 mmol/L (3.5-5.1); PROTEIN - SERUM 7.5 g/dL (6.4-8.2)
--- NOTE | 2017-03-04 18:59 | NUR ---
PT AOX4 RESP EVEN AND NONLABORED PT HERE FOR COPD WITH WHEEZING [id number] ON EXPIRATION. ACTIVITY AD SABRINA WITH BATHROOM PRIVALIGES. PT DENIES NEEDS AT THIS TIME WILL CONTINUE TO MONITOR
[2017-03-04 20:00] VITALS: BP 135/67
--- NOTE | 2017-03-04 20:45 | NUR ---
PATIENT RESTING IN BED WITH AT BEDSIDE. PATIENT REQUESTED THAT THE DOCTOR BE PAGED ABOUT HER PAIN MEIDATION AND CELEXA THAT SHE TAKES AT HOME. PATIENT DENIES OTHER NEEDS AT THIS TIME. BED IN LOWEST POSITION AND CALL LIGHT WITHIN REACH. ENCOURAGED THE PATIENT TO CALL IF SHE HAS FURTHER NEEDS.
--- NOTE | 2017-03-04 20:55 | NUR ---
SPOKE WITH DR. TRIVEDI ABOUT PATIENT'S HOME TRAMADOL AND CELEXA AND HE AUTHORIZED THE MEDS OVER THE PHONE.
[2017-03-05] VITALS: BP 107/58
[2017-03-05 04:00] VITALS: BP 128/67
[2017-03-05] MEDS ORDERED: HYDROCODONE-APA1 TAB PO (06:15)
[2017-03-05 07:32] VITALS: BP 92/43
--- NOTE | 2017-03-05 08:05 | NUR ---
AWAKE AND ALERT. ORIENTED X3. NO C/O AT THIS TIME. LUNGS ARE DIMINISHED THROUGHOUT LUNG CAMARGO WITH NON PRODUCTIVE COUGH. SKIN IS INTACT WITHOUT REDNESS EXCEPT WOUND TO LEFT GROIN WHICH HAS A DRY INTACT DRESSING IN PLACE. IV TO LEFT FOREARM/AC AREA PATENT WITHOUT REDNESS AT INSERTION SITE. BREAKFAST SERVEED IN ROOM. DENIES NEEDS.
--- NOTE | 2017-03-05 10:12 | NUR ---
ATE MOST OF BREAKFAST. DENIES NEEDS.
[2017-03-05 11:20] VITALS: BP 108/42; Ht 149.9 cm; Wt 94.8 kg
--- NOTE | 2017-03-05 12:15 | NUR ---
LUNCH SERVED IN ROOM. ATE LESS THAN HALF. NO C/O AT THIS TIME. DENIES NEEDS.
[2017-03-05 15:26] VITALS: BP 100/43
--- NOTE | 2017-03-05 18:02 | NUR ---
ATE ALL OF SUPPER. NO C/O AT THIS TIME. AT BEDSIDE. DISCUSSED USE OF LEVAQUIN AND CELEXA. PATIENT AND AGREED TO GO WITH THE LEVAQUIN AND NOT TAKE THE CELEXA TODAY R/T BP DROPING. WILL MONITOR.
[2017-03-05 20:00] VITALS: BP 117/69
[2017-03-06] VITALS: BP 99/44
--- NOTE | 2017-03-06 03:57 | NUR ---
PATIENT'S BP IS 92/36. PATIENT WAS GETTING UP TO GO TO THE RESTROOM AND STATED THAT SHE "FELT DIZZY" TO REBECCA [place]. TONNY OFFERED 2X TO ASSIST THE PATIENT TO THE RESTROOM AND THE PATIENT REFUSED STATING "HE [] WILL DO IT" PATIENT'S BP WAS RECHECKED AT 0420, RESULTS 125/57.
[2017-03-06 04:00] VITALS: BP 125/57
[2017-03-06 05:34] LABS: BASOPHILS 0.1 % (0-2); EOSINOPHILS 0 % (0-7); HEMATOCRIT 39.3 % (36.0-48.0); HEMOGLOBIN 12.7 g/dL (12-16); IMMATURE GRANULOCYTES 1.1 % (0-5); LYMPHOCYTES 7.6 % (15-50); MCH 31.1 pg (26.0-34.0); MCHC 32.3 g/dL (31.0-37.0); MCV 96.1 fL (80.0-100.0); MEAN PLATELET VOLUME 9.6 fL (7.4-10.4); MONOCYTES 3.9 % (2-11); NEUTROPHILS 87.3 % (40-80); PLATELET COUNT 322 10x3/uL (130-400); RBC 4.09 10x6/uL (4.00-5.40); RDW 14.2 % (11.5-14.5); WBC 21.2 10x3/uL (4.8-10.8)
[2017-03-06 05:51] LABS: ANION GAP 13.4 mmol/L (8-16); CALCIUM 9.2 mg/dL (8.5-10.1); CARBON DIOXIDE 26.9 mmol/L (21.0-32.0); CREATININE - SERUM 0.9 mg/dL (0.6-1.3)
[2017-03-06 05:52] LABS: POTASSIUM - SERUM 4.3 mmol/L (3.5-5.1)
--- NOTE | 2017-03-06 08:04 | NUR ---
AWAKE AND ALERT. ORIENTED X3. C/O FEELING SOB THIS AM. O2 SAT WNL. LUNGS ARE CLEAR BILATERALLY, BUT SOMEWHAT DIMINISHED THROUGHOUT. NO COUGH NOTED. SKIN IS INTACT WITHOUT REDNESS EXCEPT WOUND TO LEFT LOWER GROIN WHICH HAS A DRY INTACT DRESSING IN PLACE. IV TO LEFT FOREARM AC AREA PATENT WITHOUT REDNESS AT INSERTION SITE. BREAKFAST SERVED IN ROOM. AT BEDSIDE.
[2017-03-06 09:06] VITALS: BP 131/70
--- NOTE | 2017-03-06 10:13 | NUR ---
REQUESTED AND GIVEN 50MG ULTRAM PO FOR C/O RIGHT GROIN PAIN LEVEL 9. SAID IT WAS HURTING FROM COUGHING SO MUCH. NO SIGNS OF PULL OR SPRAIN. WILL MONITOR. REFUSED OFFER OF HEAT.
[2017-03-06 11:48] VITALS: BP 98/51
--- NOTE | 2017-03-06 15:10 | NUR ---
DR TRIVEDI PAGED AGAIN RE PATIENT REQUEST TO CONTINUE HOME MED OF HYDROCODONE.
--- NOTE | 2017-03-06 16:15 | NUR ---
SPOKE WITH DR. FAROOQ GRIFFIN HYDROCODONE. NEW ORDERS RECEIVED.
[2017-03-06 16:44] VITALS: BP 99/48
--- NOTE | 2017-03-06 17:10 | NUR ---
GIVEN SCHEDULED HYDROCODONE AT THIS TIME. SUPPER SERVED IN ROOM. DENIES NEEDS. NO CHANGES NOTED.
--- NOTE | 2017-03-06 19:26 | NUR ---
DISCONNECTED PATIENT FROM IV. IS ASSISTING HER TO THE SHOWER. PATIENT AND DENIED ASSISTANCE. PATIENT ENCOURAGED TO CALL IF SHE NEEDS ASSISTANCE.
[2017-03-06 20:00] VITALS: BP 121/56
[2017-03-07] VITALS: BP 107/49
[2017-03-07 04:00] VITALS: BP 130/73
[2017-03-07 05:57] LABS: CALC OSMOLALITY 281 mosm/kg (275-300); CALCIUM 8.5 mg/dL (8.5-10.1); CARBON DIOXIDE 27.6 mmol/L (21.0-32.0); CHLORIDE - SERUM 106 mmol/L (98-107); CREATININE - SERUM 0.8 mg/dL (0.6-1.3); GLUCOSE 150 mg/dL (74-106); POTASSIUM - SERUM 3.9 mmol/L (3.5-5.1); SODIUM 140 mmol/L (136-145); UREA NITROGEN 12 mg/dL (7-18); eGFR NON AFRICAN AMERICAN 85 mL/min (90-120)
[2017-03-07 06:24] LABS: HEMATOCRIT 42.2 % (36.0-48.0); HEMOGLOBIN 13.7 g/dL (12-16); MCH 30.9 pg (26.0-34.0); MCHC 32.5 g/dL (31.0-37.0); MCV 95.3 fL (80.0-100.0); MEAN PLATELET VOLUME 9.8 fL (7.4-10.4); PLATELET COUNT 361 10x3/uL (130-400); RBC 4.43 10x6/uL (4.00-5.40); RDW 14.5 % (11.5-14.5); WBC 23.8 10x3/uL (4.8-10.8)
[2017-03-07 06:46] LABS: BASOPHILS 1 % (0-2); EOSINOPHILS 1 % (0-7); LYMPHOCYTES 10 % (15-50); MONOCYTES 4 % (2-11); NEUTROPHILS 81 % (40-80); PLATELET ESTIMATE NORMAL
--- NOTE | 2017-03-07 07:40 | NUR ---
PATIENT IS RESTING IN HER BED, LIGHTS OUT, WITH BREATHING TREATMENT MASK ON WITH VAPOR ACTIVE. SHE IS ALERT AND CONVERSES BRIEFLY. DISCUSSED HER WOUND CARE CONSULT ORDERED TODAY AND PAIN CONTROL. SHE IS WITHOUT STATED NEEDS. VSS, CALL LIGHT IS WITHIN HER REACH.
[2017-03-07 08:08] VITALS: BP 120/81
[2017-03-07 11:27] VITALS: BP 113/56
--- NOTE | 2017-03-07 12:37 | NUR ---
Wound Care Consult: Pt has a chronic open wound on left lower abdomen (@ scar). Had surgery there 12/22/16. Pt states it tunnels and will "pop" and then green drainage will pour out. Measurements: 0.3cm x 0.4cm x 2cm x 1.2cm @ 9 oclock x 1.5cm @ 12 oclock. Pt states there is also a tunnel at approx 6 oclock. Her currenty wound treatment is packing with 1/4" packing strip - sometimes plain packing and sometimes iodoform packing. I cleansed the area well and packed with iodoform gauze moistened with saline. Covered with folded 4x4s and secured with tegaderm. I recommend a surgical consult as this has become a chronic problem. Wound care will continue to monitor.
--- NOTE | 2017-03-07 14:47 | NUR ---
PATIENT REPORTS THAT SHE IS FEELING NAUSEATED, TACHYCARDIA NOTED. RRR. DIAPHORETIC. ABT INFUSION STOPPED. REPORTED TO MD. NEW ORDERS RECEIVED. NS INFUSION STARTED.
[2017-03-07 15:54] VITALS: BP 94/52
--- NOTE | 2017-03-07 19:00 | NUR ---
PATIENT RESTING WITH EYES CLOSED. AROUES TO VOICE. ORIENTED X4. RR EVEN AND UNLABORED. 0 S/S OF DISTRESS. STATES PAIN IS A 10/10. IV TO RIGHT BREAST PATENT WITH NO REDNESS OR SWELLING. INCISION TO LLQ OF ABD WELL APPROXIMATED WITH MINIMAL REDNESS. SCD'S IN ROOM BUT OFF. AT BEDSIDE. SRX2. BED LOW. CALL LIGHT WITHIN REACH.
--- NOTE | 2017-03-07 19:00 | NUR ---
PATIENT IN BED WATCHING TV. HOB 40 DEGREES. AAOX4. RR EVEN AND UNLABORED. 0 S/S OF DISTRESS. STATES PAIN IS A 7/10. IV TO LEFT FA PATENT WITH NO REDNESS OR SWELLING. DRESSING TO ABD CDI. AT BEDSIDE. SRX2. BED LOW. CALL LIGHT WITHIN REACH.
[2017-03-07 20:00] VITALS: BP 129/66
--- NOTE | 2017-03-07 21:00 | NUR ---
ASSESSMENT COMPLETE. NIGHTTIME MEDS GIVEN. NO OTHER NEEDS AT THIS TIME.
--- NOTE | 2017-03-08 02:15 | NUR ---
PATIENT GOT UP TO USE THE BATHROOM AND IT TRIGGERED A COUGHING FIT. SHE BECAME VERY SOB. RESPIRATORY NOTIFIED. PRN UPDRAFT GIVEN.
[2017-03-08 04:00] VITALS: BP 104/51
[2017-03-08 05:04] LABS: BASOPHILS 0.2 % (0-2); EOSINOPHILS 0 % (0-7); HEMATOCRIT 36.7 % (36.0-48.0); IMMATURE GRANULOCYTES 5.4 % (0-5); LYMPHOCYTES 11.4 % (15-50); MCH 31.1 pg (26.0-34.0); MCHC 32.7 g/dL (31.0-37.0); MCV 95.1 fL (80.0-100.0); MEAN PLATELET VOLUME 9.7 fL (7.4-10.4); MONOCYTES 4.8 % (2-11); NEUTROPHILS 78.2 % (40-80); PLATELET COUNT 346 10x3/uL (130-400); RBC 3.86 10x6/uL (4.00-5.40); RDW 14.5 % (11.5-14.5)
[2017-03-08 05:15] LABS: CALC OSMOLALITY 284 mosm/kg (275-300); CALCIUM 8.4 mg/dL (8.5-10.1); CARBON DIOXIDE 30.3 mmol/L (21.0-32.0); CHLORIDE - SERUM 107 mmol/L (98-107); CREATININE - SERUM 0.8 mg/dL (0.6-1.3); GLUCOSE 153 mg/dL (74-106); POTASSIUM - SERUM 4.1 mmol/L (3.5-5.1); SODIUM 141 mmol/L (136-145); UREA NITROGEN 15 mg/dL (7-18); eGFR NON AFRICAN AMERICAN 85 mL/min (90-120)
[2017-03-08 05:16] LABS: WBC 17.5 10x3/uL (4.8-10.8)
--- NOTE | 2017-03-08 06:00 | NUR ---
SOLUMEDROL GIVEN AND ULTRAM GIVEN FOR PAIN. DENIES ANY OTHER NEEDS AT THIS TIME.
--- NOTE | 2017-03-08 07:25 | NUR ---
A&O, DENIES NEEDS, 2L NC, ASSESSMENT COMPLETE, QUESTIONS ABOUT ABDOMINAL WOUND, BED LOWEST POSITION, CALL LIGHT IN REACH, WILL CONTINUE TO MONITOR
[2017-03-08 08:35] VITALS: BP 130/68
--- NOTE | 2017-03-08 09:09 | NUR ---
PATIENT IN LOW CLAY POSITION RESTING WITH EYES CLOSED. RESPIRATIONS EVEN AND UNLABORED. SIDE RAILS UP X2. BED IN LOW POSITION. CALL LIGHT IN REACH.
--- NOTE | 2017-03-08 12:40 | NUR ---
Patient Name: BEREKET ROMANO Admission Status: Urgent Accout number: [id number] Admission Date: 03-06-2017 : 1980 Admission Diagnosis:CHRONIC OBSTRUCTIVE PULMONARY DISEASE W (ACUTE) EXACERB Attending: CAITLIN Current LOS: 2 Anticipated DC Date: 03-11-2017 Planned Disposition: Home Health Service Primary Insurance: MEDICAID [place] Discharge Planning Comments: CM MET WITH PATIENT AND SPOUSE (MORGAN) REGARDING D/C NEEDS AND PLANS. PATIENT STATED SHE LIVES WITH HER SPOUSE AND HE WILL DRIVE HER HOME AT DISCHARGE. PATIENT HAS NO STEPS OR STAIRS TO ENTER HER HOME. PATIENT IS INDEPENDENT WITH HER CARE AND HER SPOUSE HELPS HER WITH HER MEDICATIONS. PATIENTS PCP IS DR. TRIVEDI AND PHARMACY IS [facility]. PATIENT IS CURRENT WITH [facility]. CM WILL CONTINUE TO FOLLOW PATIENT WITH D/C NEEDS AND PLANS. PCP DR. FAROOQ ELIZABETH- [phone] MORGAN (SPOUSE) [phone] Admissions Counselor: Ella Muñoz Is the patient Alert and Oriented? Yes 0 * How many steps to enter\exit or inside your home? 0 0 * PCP DR. TRIVEDI 0 * [email or web address] * Preadmission Environment Home with Family 0 * ADLs Partial Dependent 0 * Partial ADLs (Assistance needed) Medication Management 0 * Equipment None 0 * List name and contact numbers for known caregivers / representatives who currently or will assist patient after discharge: MORGAN (SPOUSE) [phone] 0 * Community resources currently utilized Home Health 0 * Please name any agencies selected above. [facility] 0 * Additional services required to return to the preadmission environment? Yes 0 * Can the patient safely return to the preadmission environment? Yes 0 * Has this patient been hospitalized within the prior 30 days at any hospital? No 0 Grand Total: 0
[2017-03-08 13:46] VITALS: BP 132/82
[2017-03-08 16:59] VITALS: BP 136/76
[2017-03-08 20:15] VITALS: BP 134/78
--- NOTE | 2017-03-08 21:21 | NUR ---
AWAKE,ALERT.NO COMPLAINTS.IV INFUSING TO LEFT FOREARM WIHTOUT REDNESS OR EDEMA. NOTED. DRSG TO LEFT LOWER ABD DRY INTACT. CL IN REACCH
[2017-03-08 23:38] VITALS: BP 132/72
--- NOTE | 2017-03-09 | NUR ---
NPO STATUS BEGINS NOW. SIGNAGE PLACED ON DOOR AND DISCUSSED WITH PT.
--- NOTE | 2017-03-09 00:28 | NUR ---
RESTING QUIETLY. NO DISTRESS NOTED. CL IN REACH. AT BEDSIDE.
[2017-03-09 05:19] LABS: BASOPHILS 0.3 % (0-2); EOSINOPHILS 0 % (0-7); HEMATOCRIT 37.4 % (36.0-48.0); HEMOGLOBIN 12.1 g/dL (12-16); IMMATURE GRANULOCYTES 8.3 % (0-5); LYMPHOCYTES 12.7 % (15-50); MCH 30.4 pg (26.0-34.0); MCHC 32.4 g/dL (31.0-37.0); MEAN PLATELET VOLUME 9.5 fL (7.4-10.4); MONOCYTES 5.5 % (2-11); NEUTROPHILS 73.2 % (40-80); PLATELET COUNT 321 10x3/uL (130-400); RBC 3.98 10x6/uL (4.00-5.40); RDW 14.3 % (11.5-14.5)
--- NOTE | 2017-03-09 05:30 | NUR ---
WATCHING TV. NO COMPLIANTS OF DISCOMFORT. CL IN REACH.
[2017-03-09 05:39] LABS: CALC OSMOLALITY 285 mosm/kg (275-300); CALCIUM 8.5 mg/dL (8.5-10.1); CARBON DIOXIDE 29.2 mmol/L (21.0-32.0); CHLORIDE - SERUM 106 mmol/L (98-107); CREATININE - SERUM 0.7 mg/dL (0.6-1.3); GLUCOSE 168 mg/dL (74-106); POTASSIUM - SERUM 3.8 mmol/L (3.5-5.1); SODIUM 141 mmol/L (136-145); UREA NITROGEN 14 mg/dL (7-18); eGFR NON AFRICAN AMERICAN > 90 mL/min (90-120)
[2017-03-09 06:30] VITALS: BP 136/72
--- NOTE | 2017-03-09 07:35 | NUR ---
RESTING, SOME COMPLAINTS OF PAIN IN LOWER RIGHT ABDOMEN NOT TIME FOR PAIN MEDS, DENIES OTHER NEEDS, BED LOWEST POSITION, ASSESSMENT COMPLETE, WILL CONTINUE TO MONITOR
[2017-03-09 08:01] VITALS: BP 137/63
[2017-03-09 12:46] VITALS: BP 142/84
[2017-03-09 16:17] VITALS: BP 120/81
--- NOTE | 2017-03-09 19:00 | NUR ---
BEDSIDE REPORT RECEIVED AND CARE OF PT ASSUMED. PT LYING IN SEMI CLAY'S POSITION VISITING WITH FAMILY MEMBER. IV IN LEFT BREAST PATENT WITH NS INFUSING AT 75 ML / HR. WILL MONITOR CLOSELY FOR NEEDS.
[2017-03-09 20:00] VITALS: BP 151/87
--- NOTE | 2017-03-09 20:15 | NUR ---
PT IN SHOWER WITH FAMILY MEMBERS ASSISTANCE.
--- NOTE | 2017-03-09 20:40 | NUR ---
HS MEDICATIONS GIVEN TO INCLUDE TRAMADOL PER PT REQUEST FOR PAIN. WILL CONTINUE TO MONITOR FOR NEEDS. FAMILY MEMBER IS AT BEDSIDE.
[2017-03-10] VITALS: BP 145/89
--- NOTE | 2017-03-10 01:11 | NUR ---
CALLED RT PER PT REQUEST FOR DARLEEN SWANSON.
[2017-03-10 04:00] VITALS: BP 158/86
[2017-03-10 05:14] LABS: BASOPHILS 0.4 % (0-2); EOSINOPHILS 0.1 % (0-7); HEMATOCRIT 36.2 % (36.0-48.0); IMMATURE GRANULOCYTES 9.7 % (0-5); LYMPHOCYTES 11.1 % (15-50); MCH 30.9 pg (26.0-34.0); MCHC 33.1 g/dL (31.0-37.0); MCV 93.3 fL (80.0-100.0); MEAN PLATELET VOLUME 9.3 fL (7.4-10.4); MONOCYTES 4.6 % (2-11); NEUTROPHILS 74.1 % (40-80); PLATELET COUNT 310 10x3/uL (130-400); RBC 3.88 10x6/uL (4.00-5.40); RDW 14.6 % (11.5-14.5); WBC 18.2 10x3/uL (4.8-10.8)
[2017-03-10 05:39] LABS: CALC OSMOLALITY 281 mosm/kg (275-300); CALCIUM 8.4 mg/dL (8.5-10.1); CARBON DIOXIDE 29.2 mmol/L (21.0-32.0); CHLORIDE - SERUM 105 mmol/L (98-107); CREATININE - SERUM 0.8 mg/dL (0.6-1.3); GLUCOSE 142 mg/dL (74-106); POTASSIUM - SERUM 3.7 mmol/L (3.5-5.1); SODIUM 140 mmol/L (136-145); UREA NITROGEN 14 mg/dL (7-18); eGFR NON AFRICAN AMERICAN 85 mL/min (90-120)
[2017-03-10 07:38] VITALS: BP 139/75
--- NOTE | 2017-03-10 08:45 | NUR ---
ASSESSMENT PER FLOW SHEET.PT NPO FOR SURGEY TODAY.DENIES PAIN.WANTS TO DO HEPI CLENS BATH WHEN HE COMES THIS AM.MONITOR
--- NOTE | 2017-03-10 10:28 | NUR ---
HEPI CLENS BATH AND BED CHANGE
--- NOTE | 2017-03-10 11:51 | NUR ---
PREMEDS ORDERED.PT TO OR VIA BED.IV ABX TO OR WITH PT.
--- NOTE | 2017-03-10 12:51 | NUR ---
Nutrition Follow Up: Chart reviewed. Noted pt to have an I&D today on abdominal wound. Pt was eating 79% meal avg on a regular diet prior to being NPO for surgery. Pt previously refused all supplements so will not send Jones at this time. +BM 03/10/17. Wt stable. Labs reviewed - Glucose elevated. Meds noted including NS @ 75 ml/hr, Solu-Medrol. Pt with good po intake prior to NPO diet. Rec resuming diet when medically feasible. RD will continue to monitor pt progress.
[2017-03-10 13:49] VITALS: BP 120/70
--- NOTE | 2017-03-10 13:53 | NUR ---
BACK FROM PACU VIA BED.INCISION SITE LEFT LOWER ABD CDI WITH GLUE IN PLACE,WITHOUT DRAINAGE.02 SATS 94% ON ROOM AIR.PT WITHOUT DISTRESS.BP 120/70,76,16,97.1 TEMP.AWAKE AND ALERT.MONITOR
--- NOTE | 2017-03-10 17:30 | NUR ---
PATIENT LAYING IN BED, FAMILY AT BEDSIDE, GETTING READY TO EAT DINNER. PATIENT IS CALM AND IN NO ACUTE DISTRESS WHILE CLAIMING 10/10 PAIN TO HER INCISION SITE. BED IN LOWEST LOCKED POSITION, BED RAILS UP x2, CALL LIGHT WITHIN REACH.
[2017-03-10 20:00] VITALS: BP 112/60
--- NOTE | 2017-03-10 20:30 | NUR ---
ASSESSMENT COMLPETE. NIGHTTIME MEDS GIVEN. SPOKE WITH MACHO ZHU AND OBTAINED ORDER FOR ULTRAM Q6H PRN FOR PATIENT'S PAIN. WILL REASSESS.
--- NOTE | 2017-03-10 23:30 | NUR ---
NYSTATIN HELD PER PATIENT REQUEST.
[2017-03-10 23:43] VITALS: BP 127/67
--- NOTE | 2017-03-11 03:16 | NUR ---
PATIENT SLEEPING WITH NO DISTRESS NOTED.
[2017-03-11 04:00] VITALS: BP 141/82
[2017-03-11 06:33] LABS: BASOPHILS 0.3 % (0-2); EOSINOPHILS 0.1 % (0-7); HEMATOCRIT 36.1 % (36.0-48.0); HEMOGLOBIN 12.1 g/dL (12-16); IMMATURE GRANULOCYTES 8.1 % (0-5); LYMPHOCYTES 11.3 % (15-50); MCH 31.6 pg (26.0-34.0); MCHC 33.5 g/dL (31.0-37.0); MCV 94.3 fL (80.0-100.0); MEAN PLATELET VOLUME 9.1 fL (7.4-10.4); MONOCYTES 5.3 % (2-11); NEUTROPHILS 74.9 % (40-80); PLATELET COUNT 304 10x3/uL (130-400); RBC 3.83 10x6/uL (4.00-5.40); RDW 14.7 % (11.5-14.5); WBC 18.6 10x3/uL (4.8-10.8)
[2017-03-11 06:54] LABS: ALBUMIN 2.5 g/dL (3.4-5.0); ALKALINE PHOSPHATASE 66 U/L (46-116); ALT (SGPT) 46 U/L (10-68); CALC OSMOLALITY 288 mosm/kg (275-300); CALCIUM 8.2 mg/dL (8.5-10.1); CARBON DIOXIDE 31.5 mmol/L (21.0-32.0); CHLORIDE - SERUM 108 mmol/L (98-107); CREATININE - SERUM 0.8 mg/dL (0.6-1.3); GLUCOSE 144 mg/dL (74-106); POTASSIUM - SERUM 3.7 mmol/L (3.5-5.1); PROTEIN - SERUM 5.7 g/dL (6.4-8.2); SODIUM 143 mmol/L (136-145); UREA NITROGEN 15 mg/dL (7-18); eGFR NON AFRICAN AMERICAN 85 mL/min (90-120)
--- NOTE | 2017-03-11 07:35 | NUR ---
PT AOX4 RESP EVEN AND SOB IV TO RIGHT BREAST PATENT AND INTACT SRX2 BED AT LOWEST SETTING CALL LIGHT WITHIN REACH PT DENIES NEEDS AT THIS TIME
[2017-03-11 07:46] VITALS: BP 161/83
[2017-03-11 11:51] VITALS: BP 143/72
[2017-03-11] MEDS ORDERED: NYSTATIN ORAL SU5 ML PO (12:50)
[2017-03-11] MEDS ORDERED: VIBRAMYCIN 100100 MG PO (12:50)
[2017-03-11] MEDS ORDERED: MUCINEX DM ER1 EAC1 PO (12:51)
[2017-03-11] MEDS ORDERED: BENZONATATE200 MG PO (12:51)
[2017-03-11] MEDS ORDERED: SINGULAIR10 MG PO (12:51)
[2017-03-11] MEDS ORDERED: PULMICORT0.5 MG/21 UPD (12:51)
[2017-03-11] MEDS ORDERED: FLORAJEN3 CAPS460 MG PO (12:51)
[2017-03-11] MEDS ORDERED: PREDNISONE10 MG PO (12:52)
[2017-03-11] MEDS ORDERED: OMNICEF300 MG PO (12:53)
[2017-03-11] MEDS ORDERED: FLOVENT DISKU250 MCG INH (13:33)
[2017-03-11] MEDS ORDERED: FLOVENT HFA 22012 GM INH (13:51)
--- NOTE | 2017-03-11 15:30 | NUR ---
IV TO RIGHT BREAST DISCONTINUED WITHOUT DIFFICULTY AT THIS TIME PT DENIES NEEDS AT THIS TIME
--- NOTE | 2017-03-11 15:40 | NUR ---
SEAN NOTE: SPOKE WITH PT ABOUT DISCHARGE NEEDS. NEBULIZER SET UP WITH [facility] AND WILL DELIVER TO PT HOME [place]. VERIFIED ADDRESS AND SENT TO BLANCHE AT [facility]. HE STATED THAT HE WOULD DELIVER TO PTS HOME TODAY. IS DRIVING PT HOME ANDIE MONACO RN
--- NOTE | 2017-03-11 15:52 | NUR ---
PT DISCHARGED VIA WHEELCHAIR VIA PRIVATE VEHICLE WITH DISCHARGE PAPERWORK IN HAND AT THIS TIME
--- NOTE | 2017-03-12 16:27 | NUR ---
Face sheet w/ post it note given to CM this late PM. Discharge notes reviewed. TC to patient x3 to verify if she had received a nebulizer. No answer and was unable to leave a message x2. Spoke with the patient. She did not have a nebulizer. TC to [facility] spoke with Caleb. Referred to contract recruiter. Received CB from Demetrio. Caleb had awaited faxed referral on Tuesday. No fax received no CB. Received CB from Haylee with [facility] and reviewed situation. Refaxed face sheet, order, pulmonary and family practice notes for Medicaid documentation. Haylee advised CM that nebulizer would be delivered today.
== END 2017-03-11 15:53 | disposition home or self-care (01) | DRG 920 ==
LOC: D.NM 13:26 → D.MS 16:52 → OBSVTIME 16:54 → D.MS 03-06 13:57
PROVIDERS: Family Medicine; Internal Medicine Pulmonary Disease; Surgery; ADMIT Emergency Medicine
PROC: 0JC80ZZ Extirpation of Matter from Abdomen Subcutaneous Tissue and Fascia, Open Approach (ICD-10-PCS; principal; 2017-03-10 11:30)
DX: T81.31XA Disruption of external operation (surgical) wound, not elsewhere classified, initial encounter (principal); J44.1 Chronic obstructive pulmonary disease with (acute) exacerbation; J45.901 Unspecified asthma with (acute) exacerbation; F17.203 Nicotine dependence unspecified, with withdrawal; K21.9 Gastro-esophageal reflux disease without esophagitis; M06.9 Rheumatoid arthritis, unspecified

== ENCOUNTER 2017-03-15 13:36 | Inpatient (IN) | payer MEDICARE, MEDICAID ==
[~2017-03-15] VITALS: Ht 149.9 cm; Wt 109.5 kg
[~2017-03-15 13:36] MED LIST changes: +AUGMENTIN 500-11 TA1 PO; +BENZONATATE200 MG PO; +FLORAJEN3 CAPS460 MG PO; +FLOVENT DISKU250 MCG INH; +FLOVENT HFA 22012 GM INH; +MUCINEX DM ER1 EAC1 PO; +OMNICEF300 MG PO; +PHENERGAN25 M1 PO; +PREDNISONE10 MG PO; +PULMICORT0.5 MG/21 UPD; +SINGULAIR10 MG PO; +ULTRAM50 MG PO; +VIBRAMYCIN 100100 MG PO
[2017-03-15 14:47] LABS: BASOPHILS 0.1 % (0-2); EOSINOPHILS 0.7 % (0-7); HEMATOCRIT 37.1 % (36.0-48.0); HEMOGLOBIN 12.2 g/dL (12-16); IMMATURE GRANULOCYTES 4.1 % (0-5); LYMPHOCYTES 11.2 % (15-50); MCH 31.2 pg (26.0-34.0); MCHC 32.9 g/dL (31.0-37.0); MCV 94.9 fL (80.0-100.0); MEAN PLATELET VOLUME 9.1 fL (7.4-10.4); MONOCYTES 6.2 % (2-11); NEUTROPHILS 77.7 % (40-80); PLATELET COUNT 265 10x3/uL (130-400); RBC 3.91 10x6/uL (4.00-5.40); RDW 14.6 % (11.5-14.5); WBC 15.4 10x3/uL (4.8-10.8)
[2017-03-15 15:00] LABS: APTT 21.8 SECONDS (22.8-39.4); INR 0.84 (0.85-1.17); PROTIME 11.4 SECONDS (11.6-15.0)
[2017-03-15 15:06] LABS: ALBUMIN 3.2 g/dL (3.4-5.0); ANION GAP 8.9 mmol/L (8-16); BILIRUBIN - TOTAL 0.39 mg/dL (0.2-1.3); CALCIUM 8.9 mg/dL (8.5-10.1); CARBON DIOXIDE 34.4 mmol/L (21.0-32.0); POTASSIUM - SERUM 4.3 mmol/L (3.5-5.1); PROTEIN - SERUM 6.5 g/dL (6.4-8.2)
--- NOTE | 2017-03-15 21:10 | NUR ---
REC VIA WC FROM ER. AMBULATED TO BED WITH STEADY GAIT. ALERT/ORIENTED X 4. IV ON RT BREAST INTACT SL. HAS A SURGICAL INCISION UNDER ABD FOLD ON LEFT SIDE. STATED FROM A HYSTERECTOMY IN DECEMBER. MULTIPLE BRUISES ON ARMS AND LEGS NOTED. STATED "I BRUISE EASY". ORIENTED TO ROOM AND CALL LIGHT.
--- NOTE | 2017-03-15 23:47 | NUR ---
ADMIN MORPHINE 4 MG IV PER REQUEST FOR C/O ABD/BACK PAIN LEVEL 9 ON NUMBER SCALE, DESCRIBED CRAMPING AND THROBBING. HER IS PRESENT IN ROOM STAYING THE NIGHT.
[2017-03-16 00:14] VITALS: BP 145/85; Ht 149.9 cm; Wt 109.5 kg
[2017-03-16 01:38] VITALS: BP 112/76
--- NOTE | 2017-03-16 04:30 | NUR ---
RESTING QUIETLY WITH EYES CLOSED. RR EVEN U/L. NO S/S OF PAIN OR DISCOMFORT.
[2017-03-16 07:47] VITALS: BP 135/73
[2017-03-16 08:42] LABS: BASOPHILS 0.1 % (0-2); EOSINOPHILS 1.7 % (0-7); HEMATOCRIT 36.7 % (36.0-48.0); HEMOGLOBIN 12.2 g/dL (12-16); LYMPHOCYTES 26.9 % (15-50); MCH 31.4 pg (26.0-34.0); MCHC 33.2 g/dL (31.0-37.0); MCV 94.3 fL (80.0-100.0); MEAN PLATELET VOLUME 8.8 fL (7.4-10.4); MONOCYTES 8.6 % (2-11); NEUTROPHILS 59.7 % (40-80); PLATELET COUNT 246 10x3/uL (130-400); RBC 3.89 10x6/uL (4.00-5.40); RDW 15.1 % (11.5-14.5)
--- NOTE | 2017-03-16 08:45 | NUR ---
SITTING UP IN BED IN NO ACUTE DISTRESS ON CELL PHONE. DR. ANDERSEN IN RM. SIDE RAILS UP X2. CALL LIGHT IN REACH. EXAM TO FAB BECKER REVEALED NO EDEMA PER DR. ANDERSEN. DENIES FURTHER NEEDS.
[2017-03-16 08:54] LABS: ANION GAP 9.5 mmol/L (8-16); CALCIUM 8.7 mg/dL (8.5-10.1); CARBON DIOXIDE 32.6 mmol/L (21.0-32.0); CREATININE - SERUM 0.9 mg/dL (0.6-1.3); POTASSIUM - SERUM 4.1 mmol/L (3.5-5.1)
--- NOTE | 2017-03-16 09:12 | NUR ---
SCD'S ON FAB LE
--- NOTE | 2017-03-16 11:27 | NUR ---
STATES PAIN LEVEL 8 IN RIGHT SIDE OF ABDOMEN. SITTING UP ON CELL PHONE IN NO ACUTE DISTRESS. MORPHINE 4MG IV GIVEN PER REQUEST. WILL CONTINUE TO MONITOR PAIN
[2017-03-16 11:40] VITALS: BP 123/69
[2017-03-16] MEDS ORDERED: ALDACTONE50 MG PO (13:11)
[2017-03-16] MEDS ORDERED: ANUSOL-HC25 MG RC (13:26)
[2017-03-16] MEDS ORDERED: COLACE100 MG PO (13:27)
--- NOTE | 2017-03-16 14:30 | NUR ---
DISCHARGE INSTRUCTIONS REVIEWED WITH PT. VERBAL AND WRITTEN ACKNOWLEDGEMENT RETURNED. TRANSPORTATION SHOULD BE HERE IN APPROX 1 HOUR PER PT.
--- NOTE | 2017-03-16 16:13 | NUR ---
IV DC'D WITH TIP INTACT. COVERED WITH 2X2 AND PAPER TAPE. DC'D TO VEHICLE VIA WHEELCHAIR WITH SPOUSE AND STOCK RANCH SUPERVISOR.
== END 2017-03-16 16:38 | disposition home or self-care (01) | DRG 379 ==
LOC: D.ER 13:36 → D.M2 20:05
PROVIDERS: Emergency Medicine; Surgery; ADMIT Family Medicine
DX: K92.2 Gastrointestinal hemorrhage, unspecified (principal); K43.2 Incisional hernia without obstruction or gangrene; K21.9 Gastro-esophageal reflux disease without esophagitis; R10.9 Unspecified abdominal pain; J44.9 Chronic obstructive pulmonary disease, unspecified

== ENCOUNTER 2017-03-17 18:30 | Inpatient (IN) | payer MEDICARE, MEDICAID ==
[~2017-03-17] VITALS: Ht 149.9 cm; Wt 112.3 kg
[~2017-03-17 18:30] MED LIST changes: +ALDACTONE50 MG PO; +ANUSOL-HC25 MG RC; +COLACE100 MG PO
--- NOTE | 2017-03-17 18:50 | NUR ---
184- RECEIVED PT VIA WHEELCHAIR. PT IS ALERT AND ORIENTED. UP AD SABRINA. ON ROOM AIR. WILL DO QUICKSTART AND MEDICATIONS AND PASS THIS ALONG IN REPORT.
--- NOTE | 2017-03-17 19:41 | NUR ---
SPOKE WITH MACHO ZHU, DAIRY HUSBANDMAN FOR [facility]. CONTINUE ALL HOME MEDICATIONS. CALL WITH ANY CHANGES.
[2017-03-17 20:00] VITALS: BP 136/86
--- NOTE | 2017-03-17 23:36 | NUR ---
NURSE ROUNDS 20:00 - PT AWAKE, ALERT, ORIENTED, AT BEDSIDE. PT DENIES ANY ACUTE NEEDS. HOME MEDS RECONCILED AND RESTARTED PER ORDER. IV PLACED IN LEFT BREAST PER PTS REQUEST GARCIA WHEN INFUSING, ALTHOUGH THERE IS NO REDNESS, STREAKING, OOZING, SWELLING, OR HEAT AT INJECTION SITE. WILL REMOVE AND RESITE PER PT REQUEST. CONTINUE TO MONITOR CLOSELY. BED LOW, CALL LIGHT IN REACH, SIDE RAILS X 2, HOB 30 DEGREES. PT IS UP AD SABRINA AT THIS TIME.
[2017-03-18] VITALS (7 sets, daily range): BP systolic 101–150; BP diastolic 58–86; Ht 149.9 cm; Wt 112.3 kg
[2017-03-18 06:40] LABS: BASOPHILS 0.1 % (0-2); HEMATOCRIT 37.5 % (36.0-48.0); HEMOGLOBIN 12.3 g/dL (12-16); IMMATURE GRANULOCYTES 1.4 % (0-5); LYMPHOCYTES 23.4 % (15-50); MCH 31.2 pg (26.0-34.0); MCHC 32.8 g/dL (31.0-37.0); MCV 95.2 fL (80.0-100.0); MEAN PLATELET VOLUME 9.2 fL (7.4-10.4); MONOCYTES 9.3 % (2-11); NEUTROPHILS 63.8 % (40-80); PLATELET COUNT 270 10x3/uL (130-400); RBC 3.94 10x6/uL (4.00-5.40); RDW 14.9 % (11.5-14.5); WBC 16.1 10x3/uL (4.8-10.8)
--- NOTE | 2017-03-18 07:16 | NUR ---
PT SITTING UP IN BED SLEEPING NO S/S DISTRESS NOTED WILL CONT TO MONITOR
--- NOTE | 2017-03-18 18:05 | NUR ---
PT SITTING UP IN BED REQUESTING TO SEE DR MENDENHALL AND DR ANDERSEN. BOTH ARE ALREADY GONE FOR TODAY. PT IS AWARE AND OK TO TALK WITH THEM TOMORROW PT DENIES OTHER NEEDS
[2017-03-19] VITALS: BP 114/53
--- NOTE | 2017-03-19 01:50 | NUR ---
ASSESSMENT COMPLETE, PT ON ROOMAIR, IV-RFA-NS @75, PT IS ABLIB, PT IS A&O, BED IS LOW, SRX2, FAMILY AT BEDSIDE, CALL LIGHT IN REACH, WILL CONTINUE PLAN OF CARE
[2017-03-19 04:00] VITALS: BP 113/62
--- NOTE | 2017-03-19 07:16 | NUR ---
PT SITTING UP IN BED CO PAIN IN STOMACH NOT YET TIME FOR PAIN MEDS, WILL GIVE WHEN TIME. PT DENIES OTHER NEEDS WILL CONT TO MONITOR
[2017-03-19 08:00] VITALS: BP 141/62
--- NOTE | 2017-03-19 09:07 | NUR ---
PT PIV INFILTRATED, DC WITH CATH TIP INTACT. TRIED TO RESITE TO PT LEFT CHEST PER PT REQUEST. ATTEMPTED X1 WITH NO SUCCESS. PT CLAIMS THAT TAWANA ON [facility] IS "THE BEST AT [facility], CAN SHE COME START ONE?" CALLED OVER TO MED [facility], TAWANA IS HERE TODAY AND WILL COME TRY AND START AN IV.
--- NOTE | 2017-03-19 11:09 | NUR ---
TAWANA FROM [place] RESITED PT TO R BREAST 20G X3 STICKS. SIGNED AND DATED. IV FLUIDS RUNNING WITHOUT ANY PROBLEMS.
[2017-03-19 11:37] LABS: BASOPHILS 0.1 % (0-2); EOSINOPHILS 1.9 % (0-7); IMMATURE GRANULOCYTES 1.4 % (0-5); LYMPHOCYTES 28.3 % (15-50); MCHC 32.4 g/dL (31.0-37.0); MCV 95.6 fL (80.0-100.0); MEAN PLATELET VOLUME 8.7 fL (7.4-10.4); MONOCYTES 8.4 % (2-11); NEUTROPHILS 59.9 % (40-80); PLATELET COUNT 248 10x3/uL (130-400); RBC 3.87 10x6/uL (4.00-5.40)
[2017-03-19 11:40] LABS: WBC 11.5 10x3/uL (4.8-10.8)
[2017-03-19 11:48] LABS: ANION GAP 10.2 mmol/L (8-16); CALCIUM 9.3 mg/dL (8.5-10.1); CARBON DIOXIDE 31.7 mmol/L (21.0-32.0); CREATININE - SERUM 1.1 mg/dL (0.6-1.3); POTASSIUM - SERUM 3.9 mmol/L (3.5-5.1)
[2017-03-19 12:00] VITALS: BP 121/67
--- NOTE | 2017-03-19 13:40 | NUR ---
CALLED TO PT ROOM PT CO SEVERE ABDOMINAL CRAMPING 08/02. PT IS EATING A FRIED APPLE PIE THAT HER BROUGHT HER ALONG WITH LUNCH THAT HE BROUGHT HER ALSO. GIVEN PT MEDICATIONS ASKED FOR.
--- NOTE | 2017-03-19 16:41 | NUR ---
DR MENDENHALL ON THE FLOOR EARLIER TO SEE PT. PT IS ASKING FOR A MUSIC LIBRARY ASSISTANT PUMP SO THAT "I WONT HAVE TO BOTHER STAFF ANYMORE FOR PAIN MEDS". TALKED TO DR MENDENHALL ABOUT THIS. HE SAID HE WOULD START PRN DEMEROL. GIVEN TO PT WHEN ASKED FOR FOR STOMACH CRAMPS 08/02.
--- NOTE | 2017-03-19 17:13 | NUR ---
PT SITTING UP IN BED EATING DINNER WILL CONT TO MONITOR
[2017-03-19 20:00] VITALS: BP 139/90
--- NOTE | 2017-03-19 20:13 | NUR ---
INITIAL ROUNDS COMPETEDA T 1915 HRS. PT WATCHING TV. NAD. ASSESSMENT COMPETED AT 1940 HRS. IV TO R BREAST WITH NS AT 75CC/HR. IV PATENT. LUNGS CTA. PALPABLE PERIPHERAL PULSES. ALERT AND ORIENTED TO PERSON, PLACE AND TIME. STATES PAIN LEVEL NOW 9/10. INFORMED DEMEROL WILL BE DUE AT 1999 HRS. PT STATED WILL TAKE SHOWER FIRTS. IV WRAPPED. BED LINENS CHANGED PER SPOUSE. PT CURRENTLY IN SHOWER. WILL CONTINUE TO MONITOR.
--- NOTE | 2017-03-19 21:30 | NUR ---
PM MEDS GIVNE. PT CONTINUES TO RATE PAIN 8/10 AFTER IV DMEROL GIVEN. PT AMBULATED 250 FEET WITH SPOUSE PRIOR TO DEMEROL ADMINISTREATION. GAIT EVEN AND STEADY. WILL CONTINUE TO MONITOR. SR UP X2, CALL LIGHT WITHIN REACH.
--- NOTE | 2017-03-19 22:44 | NUR ---
ULTRAM GIVRN FOR C/O ABD PAIN. PT REFUSES MILK OF MAGNESIA STATING SHE HAD 3BMS TODAY ALREADY. WILL CONTINUE TO MONITOR.
[2017-03-20] VITALS: BP 129/79
--- NOTE | 2017-03-20 01:41 | NUR ---
DEMEROL 25MG, ZOFRAN 4MG SIVP GIVEN FOR C/O ABD PAIN 07/03 AAT 0045 HRS. STATES PAIN NOW 06/02. WILL CONITNUE TO MONITOR.
--- NOTE | 2017-03-20 02:18 | NUR ---
PT SITTING IN RECLINER WATCHING TV. NO DISTRESS NOTED. WILL CONTINUE TO MONITOR.
[2017-03-20 04:00] VITALS: BP 122/71
--- NOTE | 2017-03-20 04:33 | NUR ---
NORCO 10, PHENERGAN 25MG PO GIVEN FOR C/O ABD PAIN AND NAUSEA. WILL CONTINUE TO MONITOR.
--- NOTE | 2017-03-20 05:49 | NUR ---
VSS THROUGHOUT NIGHT. PT CONTINUES TO HAVE C/O ABD PAIN 8-10 EVEN WITH IV DEMEROL AND PO NORCO AND ULTRAM. WILL CONTINUE TO MONITOR.
[2017-03-20 06:56] LABS: BASOPHILS 0.1 % (0-2); EOSINOPHILS 1.9 % (0-7); HEMATOCRIT 36.5 % (36.0-48.0); HEMOGLOBIN 11.6 g/dL (12-16); LYMPHOCYTES 24.7 % (15-50); MCH 30.9 pg (26.0-34.0); MCHC 31.8 g/dL (31.0-37.0); MCV 97.1 fL (80.0-100.0); MEAN PLATELET VOLUME 9.2 fL (7.4-10.4); MONOCYTES 8.9 % (2-11); NEUTROPHILS 63.4 % (40-80); PLATELET COUNT 263 10x3/uL (130-400); RBC 3.76 10x6/uL (4.00-5.40); RDW 15.4 % (11.5-14.5); WBC 10.8 10x3/uL (4.8-10.8)
--- NOTE | 2017-03-20 07:00 | NUR ---
RECEIVED REPORT. ASSUMED CARE OF PATIENT. CALL LIGHT WITHIN REACH. PATIENT ALERT/ORIENTED. SITTING UP IN BED. MALE VISITOR AT BEDSIDE. CALL LIGHT WITHIN REACH. DENIES NEEDS AT THIS TIME. IV CHECKED PATIENT STATES SHE THINKS IT IS INFILTRATED. NO S/S INFILTRATION TO RIGHT BREAST IV SITE. 20 GAUGE PATENT. NO DISTRESS.IV FLUIDS INFUSING ORDERED.
[2017-03-20 08:00] VITALS: BP 143/61
--- NOTE | 2017-03-20 08:27 | NUR ---
MEDICATED FOR PAIN AT THIS TIME. PATIENT STATES SHE CAN "SMELL" THE MEDICATION IT IS GIVEN IV PUSH. THEN PATIENT STATES THAT SHE THINKS HER IV IS INFILTRATED. INFORMED PATIENT THE FACT THAT SHE CAN "TASTE" AND "SMELL" THE MEDICATION IT IS GIVEN VIA SLOW IV PUSH, THE IV IS NOT INFILTRATED. IV WAS ALSO CHECKED PRIOR TO ADMINISTRATION OF MEDICATION AND DURING MORNING ASSESSMENT AT 0715 TO ENSURE PATENCY OF IV SITE TO RIGHT BREAST. IV IS PATENT. NO FURTHER COMPLAINTS FROM PATIENT AT THIS TIME.
--- NOTE | 2017-03-20 11:27 | NUR ---
MEDICATED FOR PAIN AT THIS TIME. 20 GAUGE IV REMOVED FROM RIGHT BREAST AT THIS TIME DUE TO INFILTRATION. SKIN FELT COOL UPON PALPATION. CATHETER TIP INTACT. 2X2 AND BANDAID APPLIED. NO DISTRESS. PATIENT TOLERATED IV CATHETER REMOVAL WELL. THIS MILLER HELPER HAS ASKED DEANGELO GOMEZ RN TO ASSIST WITH REINSERTING IV PATIENT IS DIFFICULT STICK. AWAITING FOR IV PLACEMENT AT THIS TIME. NO DISTRESS.
[2017-03-20 12:00] VITALS: BP 136/68
--- NOTE | 2017-03-20 12:00 | NUR ---
20 GUAGE IV PLACED X 1 STICK TO RIGHT WRIST. GOOD BLOOD RETURN, EASY FLUSH. TAPED, DATED AND SECURED. TOLERATED IV PLACEMENT WELL. IV FLUIDS INFUSING ORDERED. NOW CONSUMING NOON MEAL AT THIS TIME. NO DISTRESS. CALL LIGHT WITHIN REACH.
--- NOTE | 2017-03-20 13:30 | NUR ---
NOTIFIED PATIENT OF NEW ORDER FOR NYSTATIN POWDER. NOTIFIED PATIENT THAT IS WAS TOO EARLY TO GIVE ANY FURTHER MEDICATION FOR NAUSEA SHE WAS ADMINISTERED PHENERGAN 1.5 HOURS AGO. PATIENT STATED "THAT'S OKAY, I JUST MADE MY SELF SICK EATING ALL MY LUNCH". PATIENT HAD NO FURTHER REQUEST.
--- NOTE | 2017-03-20 15:30 | NUR ---
MEDICATED FOR PAIN AT THIS TIME. NO DISTRESS. CALL LIGHT WITHIN REACH.
--- NOTE | 2017-03-20 18:43 | NUR ---
MEDICATED FOR PAIN AT THIS TIME. NO DISTRESS.
[2017-03-20 20:00] VITALS: BP 94/76
--- NOTE | 2017-03-20 20:07 | NUR ---
INITIAL ROUNDS COMPLETED AT 1920 HRS. PT REQUESTNG PAIN MEDS. STATED LIBIA BAHENA JUST PALPATED HER ABD AND SHE WAS HURTING. [id number] SIVP GIVEN AT 1950 HRSJANETTE Herring HAND SL. ASSESSMETN COMPLETED AT THTAT TIME. BRUISES NOTED TO Nima MILTON AND Nima MORAN. LUNGS CTA. UP AD SABRINA. SPOUSE AT BEDSIDE. S R UP X2, CALL LIGHT WITHIN REACH.
[2017-03-20] MEDS ORDERED: TOUJEO SOL300 UNIT/1 SC (20:59)
[2017-03-21] VITALS: BP 140/77
--- NOTE | 2017-03-21 00:13 | NUR ---
PT RESTING WITH EYES CLOSED. RESP EVEN AND REGULAR. SR UP X2, CALL LIGHT WITHIN REACH.
--- NOTE | 2017-03-21 04:07 | NUR ---
PT RESTING WITH EYES CLOSED. RESP EVEN AND REGULAR. SR UP X2, CALL LIGHT WITHIN REACH.
[2017-03-21 04:35] LABS: BASOPHILS 0.2 % (0-2); HEMATOCRIT 36.5 % (36.0-48.0); HEMOGLOBIN 11.6 g/dL (12-16); IMMATURE GRANULOCYTES 1.1 % (0-5); LYMPHOCYTES 23.1 % (15-50); MCH 30.9 pg (26.0-34.0); MCHC 31.8 g/dL (31.0-37.0); MCV 97.1 fL (80.0-100.0); MONOCYTES 6.2 % (2-11); NEUTROPHILS 67.4 % (40-80); PLATELET COUNT 247 10x3/uL (130-400); RBC 3.76 10x6/uL (4.00-5.40); WBC 11.4 10x3/uL (4.8-10.8)
[2017-03-21 04:58] LABS: ANION GAP 12.3 mmol/L (8-16); CALCIUM 8.8 mg/dL (8.5-10.1); CARBON DIOXIDE 28.8 mmol/L (21.0-32.0); POTASSIUM - SERUM 4.1 mmol/L (3.5-5.1)
--- NOTE | 2017-03-21 06:08 | NUR ---
VSS THROUGHOUT NIGHT. PT STATES ABD PAIN ALWAYS 8-10/10. WILL CONTINUE TO MONITOR. SR UP X2, CALL LIGHT WITHIN REACH.
--- NOTE | 2017-03-21 08:58 | NUR ---
PT REQ AND REC'D PRN PAIN MEDICATION AND ZOFRAN WITH AM MEDICATIONS. WCTM.
[2017-03-21 09:30] VITALS: BP 153/79
[2017-03-21 12:23] VITALS: BP 107/59
[2017-03-21 17:06] VITALS: BP 139/62
[2017-03-21 20:33] VITALS: BP 128/65
--- NOTE | 2017-03-21 20:54 | NUR ---
ALERT/AWAKE WATCHING TV. ADMIN DEMEROL IV FOR C/O ABD PAIN LEVEL 10 ON NUMBER SCALE AND ZOFRAN FOR C/O NAUSEA. FLUSHED RT HAND IV AND ADMIN ZOSYN IV. DENIES ANY OTHER NEEDS. VISITOR PRESENT IN ROOM.
--- NOTE | 2017-03-22 00:21 | NUR ---
SITTING IN BEDSIDE CHAIR WATCHING TV. RATED PAIN LEVEL AT 5 ON NUMBER SCALE. REQUESTED A COLA.
[2017-03-22 01:51] VITALS: BP 144/95
[2017-03-22 05:48] VITALS: BP 122/77
--- NOTE | 2017-03-22 07:00 | NUR ---
PT WAS RECEIVED AT THE BEGINNING OF THIS SHIFT. IN BED AWAKE AND ORIENTED X 4. NO COMPLAINTS OF ANY PAIN OR DISCOMFORT AT THIS TIME. RT. HAND WITH SALINE LOCKED IV. WILL BE MONITORING HER THROUGHOUT THIS SHIFT AND ASSISTANCE WILL BE PROVIDED WITH HER ADL'S. VITAL SIGNS WNL. STABLE CONDITION OBSERVED.
[2017-03-22 08:00] VITALS: BP 100/51
[2017-03-22 11:58] VITALS: BP 110/45
--- NOTE | 2017-03-22 13:52 | NUR ---
Nutrition follow-up: Diet: low sodium PO intake 100% of meals Labs reviewed PO intake good at this time. RDN following.
[2017-03-22 16:00] VITALS: BP 124/69
--- NOTE | 2017-03-22 17:38 | NUR ---
PT WAS GIVEN DEMEROL AND ZOFRAN AT 10:15AM, NORCO 10MG AND PHENERGAN AT 12PM, DEMEROL AND ZOFRAN AT 3:10PM AND NORCO AND PHENERGAN AT 5:40PM ALL PER REQUEST. RT. HAND IV THAT IS SALINE LOCKED. AT BEDSIDE.
--- NOTE | 2017-03-22 19:36 | NUR ---
REC ORDER FROM MACHO ZHU APN TO RENEW DEMEROL 50MG IV Q 4HR PRN.
--- NOTE | 2017-03-22 20:22 | NUR ---
ADMIN SCHED MEDS AND DEMEROL 50MG IV PER REQUEST FOR C/O ABD PAIN LEVEL 10 ON NUMBER SCALE. REC UPDRAFT TX. NO OTHER NEEDS VOICED.
[2017-03-22 21:21] VITALS: BP 135/66
[2017-03-23] VITALS (7 sets, daily range): BP systolic 106–141; BP diastolic 44–89
--- NOTE | 2017-03-23 02:00 | NUR ---
ADMIN DEMEROL 50MG IV AND ZOFRAN IV PER REQUEST FOR C/O PAIN AND NAUSEA.
--- NOTE | 2017-03-23 03:00 | NUR ---
AMBULATING IN HALLWAY. REQUESTED TO USE A MICROWAVE TO HEAT SOME FOOD.
[2017-03-23 05:09] LABS: BASOPHILS 0.2 % (0-2); EOSINOPHILS 1.7 % (0-7); HEMATOCRIT 35.2 % (36.0-48.0); HEMOGLOBIN 11.1 g/dL (12-16); IMMATURE GRANULOCYTES 0.8 % (0-5); LYMPHOCYTES 23.3 % (15-50); MCH 30.7 pg (26.0-34.0); MCHC 31.5 g/dL (31.0-37.0); MCV 97.5 fL (80.0-100.0); MEAN PLATELET VOLUME 9.2 fL (7.4-10.4); MONOCYTES 5.4 % (2-11); NEUTROPHILS 68.6 % (40-80); PLATELET COUNT 238 10x3/uL (130-400); RBC 3.61 10x6/uL (4.00-5.40); WBC 10.5 10x3/uL (4.8-10.8)
[2017-03-23 05:18] LABS: ANION GAP 11.1 mmol/L (8-16); CALCIUM 8.7 mg/dL (8.5-10.1); CARBON DIOXIDE 28.5 mmol/L (21.0-32.0); POTASSIUM - SERUM 3.6 mmol/L (3.5-5.1)
--- NOTE | 2017-03-23 07:56 | NUR ---
AM ROUNDING- RECEIVED REPORT FROM SIRISHA ARREOLA. PT IS CURRENTLY SITTING UP IN BED WITH EYES OPEN TALKING ON CELLPHONE. PT IS ASKING WHEN SHE CAN HAVE HER NEXT DOSE OF PAIN MEDICATION. I INFORMED PT THAT I WILL CHECK AND SEE. ON ROOM AIR. NO MONITOR. IV SEEN TO RIGHT HAND THAT IS CURRENTLY SALINE LOCKED. PER REPORT PT IS GOING FOR SURGERY TOMORROW WITH DR. ANDERSEN. ELBA (LICENSED OCCUPATIONAL THERAPIST NURSE) HAD PT SIGN CONSENTS THIS AM. CONSENTS ARE SIGNED AND IN CHART. NO NEED AT CURRENT TIME. WILL CONTINUE TO MONITOR AND CONTINUE WITH PLAN OF CARE.
--- NOTE | 2017-03-23 16:30 | NUR ---
Patient Name: BEREKET ROMANO Admission Status: Elective Accout number: [id number] Admission Date: 03-17-2017 : 1980 Admission Diagnosis:GASTROINTESTINAL HEMORRHAGE, UNSPECIFIED Attending: ZA Current LOS: 6 Anticipated DC Date: Planned Disposition: Home Primary Insurance: [employer] Discharge Planning Comments: * Is the patient Alert and Oriented? Yes 0 * How many steps to enter\exit or inside your home? NONE 0 * PCP DR. TRIVEDI 0 * [facility]acy [facility] * Preadmission Environment Home with Family 0 * ADLs Independent 0 * Equipment Nebulizer 0 * Other [facility] * List name and contact numbers for known caregivers / representatives who currently or will assist patient after discharge: MORGAN ROMANO, SPOUSE, 0 * Community resources currently utilized None 0 * Please name any agencies selected above. NONE 0 * Additional services required to return to the preadmission environment? No 0 * Can the patient safely return to the preadmission environment? Yes 0 * Has this patient been hospitalized within the prior 30 days at any hospital? Yes 0 CM MET WITH PT IN ROOM TO DISCUSS DISCHARGE PLANNING AND NEEDS. PT REPORTS LIVING AT HOME INDEPENDENTLY WITH HER SPOUSE. PT HAS NEBULIZER FROM UNKNOWN PROVIDER; PT WILL SPEAK TO HER FAMILY TO SEE IF THEY CAN DETERMINE THE NAME OF THE COMPANY. PT HAS NO OUTSIDE SERVICES ASSISTING IN THE HOME. CM DISCUSSED AVAILABILITY OF HOME HEALTH, REHAB SERVICES AND MEDICAL EQUIPMENT. PT HAS HAD [facility] IN THE PAST BUT DOES NOT THINK SHE NEEDS HOME HEALTH THIS TIME BUT THINKS SHE MAY NEED OXYGEN AT DISCHARGE. PT REPORTS HER SON WILL PICK HER UP FOR DISCHARGE HOME. PT THINKS SHE MAY REQUIRE OXYGEN FOR HOME USE AT DISCHARGE. CM WILL AWAIT MEDICAL STABILITY, TESTING AND DOCTORS ORDERS IF OXYGEN IS REQUIRED FOR DISCHARGE HOME. Automotive Internet Sales Manager: Angel Hilario
--- NOTE | 2017-03-23 18:09 | NUR ---
PT IS CURRENTLY LAYING IN BED ON BACK WITH EYES OPEN RESTING. PT IS WANTING PAIN MEDICATION AT THIS TIME. I INFORMED PT THAT I WILL GIVE HER MEDICATION WHEN IT IS TIME FOR HER TO HAVE IT AGAIN. WILL CONTINUE TO MONITOR.
--- NOTE | 2017-03-23 19:24 | NUR ---
RECEIVED REPORT, PT EATING CHICKEN NUGGETS AND WAGNER, DENIES ANY NEEDS, CONSENT SIGNED FOR VENTRAL HERNIA REPAIR TOMORROW, IV-R. HAND, BED IS LOW, SRX2, CALL LIGHT IN REACH, AT BEDSIDE, WILL CONTINUE PLAN OF CARE
--- NOTE | 2017-03-23 22:22 | NUR ---
GAVE DEMEROL AND ZOFRAN ORDER, WILL CONTINUE TO MONITOR
[2017-03-24] VITALS: BP 127/46
--- NOTE | 2017-03-24 01:39 | NUR ---
ASSESSMENT COMPLETE, PT SLEEPING, BEEN NPO SINCE MIDNIGHT, AT BEDSIDE, CALL LIGHT IN REACH, WILL CONTINUE TO MONITOR
--- NOTE | 2017-03-24 03:36 | NUR ---
PSYCHIATRIC ASSISTANT AT BEDSIDE TO OBTAIN VITALS, WILL CONTINUE WITH PLAN OF CARE.
[2017-03-24 04:00] VITALS: BP 128/59
[2017-03-24 05:45] LABS: BASOPHILS 0.5 % (0-2); EOSINOPHILS 2.1 % (0-7); HEMATOCRIT 34.8 % (36.0-48.0); HEMOGLOBIN 11.3 g/dL (12-16); IMMATURE GRANULOCYTES 0.6 % (0-5); LYMPHOCYTES 23.8 % (15-50); MCH 31.2 pg (26.0-34.0); MCHC 32.5 g/dL (31.0-37.0); MCV 96.1 fL (80.0-100.0); MEAN PLATELET VOLUME 9.3 fL (7.4-10.4); MONOCYTES 6.9 % (2-11); NEUTROPHILS 66.1 % (40-80); PLATELET COUNT 241 10x3/uL (130-400); RBC 3.62 10x6/uL (4.00-5.40); RDW 14.9 % (11.5-14.5); WBC 9.9 10x3/uL (4.8-10.8)
[2017-03-24 06:12] LABS: ANION GAP 10.9 mmol/L (8-16); CALCIUM 9.1 mg/dL (8.5-10.1); CARBON DIOXIDE 28.1 mmol/L (21.0-32.0); CREATININE - SERUM 0.9 mg/dL (0.6-1.3)
--- NOTE | 2017-03-24 07:46 | NUR ---
AM ROUNDING- RECEIVED REPORT FROM EDUCATION RN NURSE MELANY. PT IS CURRENTLY LAYING IN BED ON LEFT SIDE WITH EYES CLOSED RESTING. NPO CURRENTLY FOR PROCEUDRE PT IS HAVING THIS AM. CONSENTS ARE SIGNED AND IN CHART. ON ROOM AIR. NO MONITOR. IV SEEN TO RIGHT HAND THAT HAS NS RUNNING AT KVO (5CC). NO NEED AT CURRENT TIME. WILL AWAIT FOR SURGERY TO CALL TO PRE-OP PT. WILL CONTINUE TO MONITOR AND CONTINUE WITH PLAN OF CARE.
[2017-03-24 08:22] VITALS: BP 118/91
--- NOTE | 2017-03-24 10:18 | NUR ---
GAVE PT PRE-OP MEDICAITONS WITH SIP OF WATER. AWAITING FOR SURGERY TO COME GET PT. WILL CONTINUE TO MONITOR.
--- NOTE | 2017-03-24 10:37 | NUR ---
Nutrition follow-up: Pt is now NPO for hernia repair Labs reviewed +BM Wt: 216# RDN following.
--- NOTE | 2017-03-24 10:48 | NUR ---
PT TO OR VIA BED. TAMMIE DIAMOND, SENIOR REPORT DEVELOPER IS DOING PRE-OP CHECKLIST.
[2017-03-24 13:51] VITALS: BP 134/74
--- NOTE | 2017-03-24 14:27 | NUR ---
LAMP SHADES SUPERVISOR PUMP INITATED WITH ASSISTANCE OF NAZARIO RUSSELL RN. USED 2ML TO PRIME LAMP SHADES SUPERVISOR TUBING. SET LAMP SHADES SUPERVISOR PUMP AT 0.2MG [id number] ORDERED WITH 4MG LOCKOUT Q4H ORDERED. WHEN COMPLETED INITIATION PUMP SAID THERE IS 24ML VTBI.
--- NOTE | 2017-03-24 14:55 | NUR ---
CALLED PHARMACY TO SEE IF OFIRMEV IV IS COMPATIBLE WITH A CAREER DEVELOPMENT SPECIALIST PUMP WITH DILAUDID. SPOKE WITH MITCH IN PHARMACY AND MITCH STATES YES IT IS COMPATIBLE.
--- NOTE | 2017-03-24 14:56 | NUR ---
1400- RECEIVED PT BACK FROM OR VIA BED. PT IS C/O PAIN, INFORMED PT THAT I WOULD GET HER FOUR CORNER FORMER MACHINE OPERATOR PUMP HOOKED UP ORDERED. PT HAS ABEBE CATHETER WITH YELLOW URINE. CLEAN, DRY, AND INTACT DRESSING SEEN TO LOWER ABDOMINAL AREA. PT HAS WET WASH CLOTH ON FOREHEAD NOW FOR COMFORT. WILL HOOK FOUR CORNER FORMER MACHINE OPERATOR PUMP UP ORDERED AND CONTINUE TO MONITOR.
--- NOTE | 2017-03-24 15:17 | NUR ---
CALLED PHARMACY TO SEE IF ZOSYN IS COMPATIBLE WITH RECORDING STUDIO SET UP WORKER PUMP WITH DIALUDID. SPOKE WITH PHARMACIST AND SHE STATES IT IS COMPATIBLE AND IT IS OKAY TO PIGGYBACK ZOSYN IN TO NS WITH RECORDING STUDIO SET UP WORKER PUMP WITH DILAUDID.
[2017-03-24 16:30] VITALS: BP 143/81
--- NOTE | 2017-03-24 18:59 | NUR ---
PT IS CURRENTLY SITTING UP IN BED WITH EYES OPEN RESTING. IS AT BEDSIDE. PT HAS MALTED MILK MIXER PUMP WITH DILAUDID WITH BUTTON AT BEDSIDE. NO NEED AT CURRENT TIME. WILL CONTINUE TO MONITOR.
[2017-03-24 19:00] VITALS: BP 145/79
--- NOTE | 2017-03-24 19:48 | NUR ---
ALERT/AWAKE EATING ICE CREAM . C/O ABD PAIN LEVEL AT 10 ON NUMBER SCALE. HAS GAG WRITER WITH DILAUDID FOR PAIN CONTROL. DRSG C/D/I ON LOWER LEFT ABD. ABEBE PATENT WITH CLEAR YELLOW URINE. HER IS PRESENT IN ROOM.
--- NOTE | 2017-03-24 22:30 | NUR ---
PULLED IV OUT. RESITED IN RT FA.
[2017-03-25] VITALS: BP 120/75
--- NOTE | 2017-03-25 00:14 | NUR ---
ADMIN DEMEROL 50MG AND ZOFRAN IV PER REQUEST FOR C/O ABD PAIN AND NAUSEA. REFILLED ICE BAG. NO OTHER NEEDS VOICED.
--- NOTE | 2017-03-25 02:10 | NUR ---
AWAKE WATCHING TV. STATED "I CAN ONLY SLEEP A FEW HOURS AT A TIME". RATES PAIN LEVEL OF ABD AT A 10 ON NUMBER SCALE.
[2017-03-25 04:00] VITALS: BP 154/87
[2017-03-25 04:56] LABS: BASOPHILS 0.2 % (0-2); EOSINOPHILS 1.5 % (0-7); HEMATOCRIT 34.3 % (36.0-48.0); HEMOGLOBIN 11.2 g/dL (12-16); IMMATURE GRANULOCYTES 0.6 % (0-5); LYMPHOCYTES 15.7 % (15-50); MCH 31.2 pg (26.0-34.0); MCHC 32.7 g/dL (31.0-37.0); MCV 95.5 fL (80.0-100.0); MEAN PLATELET VOLUME 9.1 fL (7.4-10.4); MONOCYTES 5.5 % (2-11); NEUTROPHILS 76.5 % (40-80); PLATELET COUNT 235 10x3/uL (130-400); RBC 3.59 10x6/uL (4.00-5.40); RDW 14.9 % (11.5-14.5); WBC 10.7 10x3/uL (4.8-10.8)
[2017-03-25 05:05] LABS: ANION GAP 11.8 mmol/L (8-16); CALCIUM 9.1 mg/dL (8.5-10.1); CREATININE - SERUM 0.9 mg/dL (0.6-1.3); POTASSIUM - SERUM 3.8 mmol/L (3.5-5.1)
--- NOTE | 2017-03-25 06:30 | NUR ---
REC RESP UPDRAFT [place]. REQUESTING DEMEROL. EXPLAIN I CANNOT ADMINISTER UNTIL 8:00.
--- NOTE | 2017-03-25 07:37 | NUR ---
AM ROUNDING- RECEIVED REPORT FROM HAIR ASSISTANT NURSE ELBA. PT IS CURRENTLY UP WALKING AROUND ROOM. ON ROOM AIR. NO MONITOR. IV SEEN TO RIGHT FOREARM WITH NS RUNNING AT 10CC. PEANUT VENDOR PUMP SEEN WITH DILAUDID (0.2MG [id number] WITH 4MG LOCKOUT DOSE Q4H ORDERED). ABEBE CATHETER SEEN WITH YELLOW URINE. NO NEED AT CURRENT TIME. WILL CONTINUE TO MONITOR AND CONTINUE WITH PLAN OF CARE.
[2017-03-25 07:56] VITALS: BP 142/69
--- NOTE | 2017-03-25 12:30 | NUR ---
ABEBE CATHETER REMVOED WITH 10CC PULLED OUT OF BALLOON SYRINGE. NETWORK MGR PUMP WITH DIALUDID D/C ORDERD WITH ASSISTANCE FROM SIRISHA LANGE.
[2017-03-25 12:44] VITALS: BP 128/71
--- NOTE | 2017-03-25 12:59 | OP ---
PATIENT NAME: BEREKET ROMANO MEDICAL RECORD: [id number] :76 LOCATION:D.M2 D.2103 ADMISSION DATE:03/17/17 SURGEON: RADHA ANDERSEN MD DATE OF OPERATION: 03/24/2017 PREOPERATIVE DIAGNOSES: 1. Ventral incisional hernia. 2. Rheumatoid arthritis. 3. Gastroesophageal reflux disease. 4. Lower gastrointestinal bleeding. POSTOPERATIVE DIAGNOSES: 1. Ventral incisional hernia. 2. Rheumatoid arthritis. 3. Gastroesophageal reflux disease. 4. Lower gastrointestinal bleeding. PROCEDURE: Ventral hernia repair with 12 cm Parietex Composite mesh. SURGEON: Radha Andersen MD REPORT OF PROCEDURE: The patient's abdomen was prepped and draped in sterile fashion. The previous Pfannenstiel incision was reopened and the subcutaneous tissue was opened up using electrocautery, we dissected down to the patient's anterior fascia and then we elevated the subcutaneous fatty tissue off of the fascia until we finally encountered the hernia in the patient's left lower quadrant. The hernia sac was thick and we were able to dissect through this and get down to some incarcerated bowel which was adherent to the acosta of the hernia. The hernia sac was completely excised down to the area of the fascial edges. We had to dissect the bowel off of the anterior abdominal wall, so approximately 30 minutes worth of a lysis of adhesions of the small bowel to the abdominal wall was performed. We eventually freed up the entire abdominal wall in the left lower quadrant and pelvis. Once this was done, we can measure out the hernia defect, is being 7 cm in greatest diameter. The defect was circular. We then implanted the 12 cm Parietex Composite mesh and sutured it down on all 4 sides using interrupted 0 Prolenes. The mesh appeared to lie in good position. We then closed the fascia transversely overlying the mesh using running #1 looped PDS times 2. We irrigated out the wound thoroughly with normal saline and care was taken to make sure there was no sign of any active bleeding. The subcutaneous tissues were all reapproximated with interrupted 3-0 Vicryls and the skin was closed with running subcutaneous 5-0 Monocryl. The wound was then dressed with Dermabond. COMPLICATIONS: None. CONDITION: Stable. ANESTHESIA: General endotracheal. BLOOD LOSS: Minimal. TRANSINT:[id number] Voice Confirmation ID: [id number] DOCUMENT ID: [id number] OPERATIVE REPORT [id number] BEREKET ROMANO CHRISTIAN MD at 1259 CC: ISAEL MENDENHALL MD [id number] DICTATION DATE: 03/24/17 1324 PALLIATIVE CARE NURSE: 03/24/17 2226 ADM IN [facility] [address] [id number]
[2017-03-25 16:43] VITALS: BP 103/59
--- NOTE | 2017-03-25 18:26 | NUR ---
PT IS CURRENTLY LAYING IN BED ON BACK WITH EYES OPEN RESTING. IS AT BEDSIDE. NO NEED AT CURRENT TIME. CAME TO NURSES STATION TO INFORM ME TO PASS ALONG TO IT SUPPORT MANAGER NURSE THAT PT WILL NEED HER MILK OF MAGNESIA TONIGHT AND FOR THEM TO GO AHEAD AND BRING IT SINCE PT HAS BEEN REFUSING IT FOR A FEW DAYS. INFORMED THAT I WILL PASS THIS ALONG IN REPORT TO IT SUPPORT MANAGER NURSE. WILL CONTINUE TO MONITOR.
[2017-03-25 19:00] VITALS: BP 109/67; BP 117/51
--- NOTE | 2017-03-25 19:38 | NUR ---
PT AWAKE, ALERT, ORIENTED, LYING IN BED WITH HOB 35-40 DEGREES, PT IS C/O NAUSEA, PRN ZOFRAN GIVEN. WILL CONTINUE TO MONITOR CLOSELY. BED LOW, CALL LIGHT IN REACH, SIDE RAILS X 2. AT BEDSIDE.
[2017-03-26 00:08] VITALS: BP 127/64
--- NOTE | 2017-03-26 00:08 | NUR ---
PT CALLED C/O GREAT PAIN UNCONTROLLED WITH PRN PERCOCET. DR. ANDERSEN PAGED FOR FURTHER ORDERS. DR. ANDERSEN ORDERED DILAUDID 1MG IV Q 3 HOURS PRN BREAKTHROUGH PAIN. CONTINUE TO MONITOR CLOSELY.
[2017-03-26 04:00] VITALS: BP 101/60
--- NOTE | 2017-03-26 04:06 | NUR ---
PT RESTING COMFORTABLY AFTER INITIAL PRN DOSE OF DILAUDID FOR UNCONTROLLED ABD PAIN. PT EASILY ROUSABLE TO VERBAL STIMULI. ANOTHER PRN DOSE OF DILAUDID GIVEN WITH ZOFRAN TO MAINTAIN PAIN CONTROL. PT DENIES ANY OTHER NEEDS. AT BEDSIDE. CONTINUE TO MONITOR CLOSELY.
[2017-03-26 05:40] LABS: BASOPHILS 0.4 % (0-2); EOSINOPHILS 3.3 % (0-7); HEMATOCRIT 32.1 % (36.0-48.0); HEMOGLOBIN 10.4 g/dL (12-16); IMMATURE GRANULOCYTES 0.5 % (0-5); LYMPHOCYTES 28.4 % (15-50); MCH 31.4 pg (26.0-34.0); MCHC 32.4 g/dL (31.0-37.0); MEAN PLATELET VOLUME 8.9 fL (7.4-10.4); NEUTROPHILS 61.4 % (40-80); PLATELET COUNT 226 10x3/uL (130-400); RBC 3.31 10x6/uL (4.00-5.40); RDW 15.3 % (11.5-14.5); WBC 8.1 10x3/uL (4.8-10.8)
[2017-03-26 05:53] LABS: CALC OSMOLALITY 277 mosm/kg (275-300); CALCIUM 8.5 mg/dL (8.5-10.1); CARBON DIOXIDE 29.1 mmol/L (21.0-32.0); CHLORIDE - SERUM 103 mmol/L (98-107); CREATININE - SERUM 0.7 mg/dL (0.6-1.3); GLUCOSE 124 mg/dL (74-106); SODIUM 139 mmol/L (136-145); UREA NITROGEN 10 mg/dL (7-18); eGFR NON AFRICAN AMERICAN > 90 mL/min (90-120)
--- NOTE | 2017-03-26 07:05 | NUR ---
RECEIVED REPORT. ASSUMED CARE OF PATIENT. CALL LIGHT WITHIN REACH. PATIENT EASILY AROUSED. RESP EVEN AND UNLABORED. PATIENTS SPOUSE IN CHAIR WITH EYES CLOSED AT BEDSIDE. IV FLUIDS INFUSING AT KVO. NO DISTRES. DENIES NEEDS AT THIS TIME.
[2017-03-26 08:59] VITALS: BP 166/99
--- NOTE | 2017-03-26 12:37 | NUR ---
COMPLAINTS OF PAIN 08/02. PERCOCET 1 GIVEN, DR ANDERSEN IN ROOM SEEING PATIENT.
[2017-03-26 12:40] VITALS: BP 113/68
--- NOTE | 2017-03-26 15:00 | NUR ---
PATIENT OOB AMBULATING WITH PHYSICAL THERAPY. TOLERATED AMBULATING WELL.
--- NOTE | 2017-03-26 15:30 | NUR ---
PATIENT OOB TO SHOWER AT THIS TIME. BED LINENS CHANGED. NO DISTRESS. AMBULATING AROUND ROOM.
[2017-03-26 16:24] VITALS: BP 142/99
--- NOTE | 2017-03-26 16:27 | NUR ---
DRESSING CHANGE TO LOWER ABDOMINAL AREA AT THIS TIME, CURRENT DRESSING WAS WET AFTER SHOWER. INCISION IS APPROXIMATED. NO SUTURES/CLIPS. INCISION GLUED? PATIENT STATES THEY USED "GLUE" ON PREVIOUS ABDOMINAL SURGERIES. DRESSING CLEAN DRY AND INTACT AT THIS TIME.
--- NOTE | 2017-03-26 16:31 | NUR ---
MEDICATED FOR PAIN AT THIS TIME. NO DISTRESS. CALL LIGHT WITHIN REACH.
--- NOTE | 2017-03-26 18:24 | NUR ---
PATIENT OOB AMBULATING WITH HER SPOUSE AROUND NURSING UNIT WHILE PUSHING IV POLE. TOLERATING AMBULATION WELL. NO DISTRESS.
[2017-03-26 20:00] VITALS: BP 136/53
--- NOTE | 2017-03-26 20:02 | NUR ---
INITIAL ROUNDS COMPETED AT 1915 HRS. PT HAD C/O ABD PAIN AND CONSTIPATION. ULTRAM 50MG, MOM 30CC PO GIVEN AT 1950 HRS. ASSESSMENT COMPLETED AT THAT TIME. IV TO RFA WITHNS AT 10CC/HR. LUNGS CTA. ABD LARGE WITH ACTIVE BS NOTED. DRESSING TO LOWER ABD CLEAN,DRY AND INTACT. SWARTZ. PALPABLE PERIPHERAL PULSES. HUBAND AT [facility]. SR UP X2, CALL LIGHT WITHIN REACH.
--- NOTE | 2017-03-26 22:03 | NUR ---
PM MEDS GIVEN INCLUDING FLEXIRIL AND ZOFRAN. PER PT REQUEST. PT CURRENTLY STATES PAIN IS SO-SO. WILL CONTINUE TO MONITOR.
[2017-03-27] VITALS: BP 127/74
--- NOTE | 2017-03-27 01:05 | NUR ---
PT UP TO BR. NO DISTRESS NOTED. WILL CONTINUE TO MONITOR.
--- NOTE | 2017-03-27 02:15 | NUR ---
PT RESTING WITH EYES CLOSED. RESP EVEN AND REGULAR. SR UP X2,CALL LIGHT WITHIN REACH.
[2017-03-27 04:00] VITALS: BP 105/58
--- NOTE | 2017-03-27 04:20 | NUR ---
PHENERGAN 25MG PO GIVEN PER PT REQUEST FOR NAUSEA WITH SCHEDULED ULTRAM. PT STATES STILL HAS NOT HAD A BM. WILL CONTINUE TO MONITOR.
[2017-03-27 05:06] LABS: BASOPHILS 0.2 % (0-2); EOSINOPHILS 4.8 % (0-7); HEMATOCRIT 33.3 % (36.0-48.0); HEMOGLOBIN 10.7 g/dL (12-16); IMMATURE GRANULOCYTES 0.3 % (0-5); LYMPHOCYTES 25.7 % (15-50); MCH 31.1 pg (26.0-34.0); MCHC 32.1 g/dL (31.0-37.0); MCV 96.8 fL (80.0-100.0); MEAN PLATELET VOLUME 9.1 fL (7.4-10.4); MONOCYTES 6.5 % (2-11); NEUTROPHILS 62.5 % (40-80); PLATELET COUNT 255 10x3/uL (130-400); RBC 3.44 10x6/uL (4.00-5.40); RDW 15.1 % (11.5-14.5); WBC 8.6 10x3/uL (4.8-10.8)
[2017-03-27 05:48] LABS: CALC OSMOLALITY 274 mosm/kg (275-300); CALCIUM 8.7 mg/dL (8.5-10.1); CARBON DIOXIDE 26.7 mmol/L (21.0-32.0); CHLORIDE - SERUM 102 mmol/L (98-107); CREATININE - SERUM 0.8 mg/dL (0.6-1.3); GLUCOSE 124 mg/dL (74-106); POTASSIUM - SERUM 4.1 mmol/L (3.5-5.1); SODIUM 138 mmol/L (136-145); UREA NITROGEN 7 mg/dL (7-18); eGFR NON AFRICAN AMERICAN 85 mL/min (90-120)
--- NOTE | 2017-03-27 06:09 | NUR ---
VSS THROUGHOUT NIGHT. PT STATES HAS CONTINUOUS ABD PAIN 6-9/10 EVEN WITH PAIN MEDS. NO BM WITH MOM. WILL CONTINUE TO MONITOR.
[2017-03-27 08:46] VITALS: BP 133/77
[2017-03-27 12:12] VITALS: BP 121/74
--- NOTE | 2017-03-27 13:35 | NUR ---
COMPLAINTS OF PAIN TO INCISIONAL AREA 9/10, PERCOCET GIVEN.
[2017-03-27 16:23] VITALS: BP 129/80
--- NOTE | 2017-03-27 18:43 | NUR ---
ALERT AND ORIENTED X4. COMPLAINS OF CONSTIPATION. MAG CITRATE UNAFFECTIVE. PATIENT STATES, "IT FEELS LIKE MY BUTT HOLE IS RIPPING, WILL YOU PLEASE TRY TO DIG IT OUT." PAGE MACHO X2. NO CALL BACK. ENCOURAGE TO DRINK WATER AND LAY ON LEFT SIDE. DENIES SOB. PREPARE SHIFT CHANGE REPORT. CONTINUE SAFETY PRECAUTIONS.
--- NOTE | 2017-03-27 19:33 | NUR ---
RESUMED CARE OF PT, LYING IN BED RESPIRATIONS EVEN AND UNLABORED ON ROOM AIR. AT BEDSIDE. LEFT FOREARM INFUSING NS @ KVO. COMPLAINTS OF NO BM, HAS TAKEN MAG CITRATE TODAY. WILL CONTINUE TO MONITOR. SEE NURSE ASSESSMENT. CALL LIGHT IN REACH.
[2017-03-27 20:00] VITALS: BP 117/70
--- NOTE | 2017-03-27 22:06 | NUR ---
LARGE BM, UP TO SHOWER.
[2017-03-28] VITALS: BP 112/73
--- NOTE | 2017-03-28 00:51 | NUR ---
PERCOCET 10 GIVEN FOR ABDOMINAL PAIN. STATES SHE FEELS MUCH BETTER CONSTIPATION PIZARRO, BUT IS AFRAID SHE HURT HER HERNIA REPAIR WITH ALL THE STRAIING FROM PASSING THE BM. WILL CONTINUE TO MONITOR. CALL LIGHT IN REACH.
[2017-03-28 04:00] VITALS: BP 114/67
--- NOTE | 2017-03-28 06:11 | NUR ---
NO CHANGES FROM PREVIOUS ASSESSMENT, CALL LIGHT IN REACH. WILL CONTINUE TO MONITOR.
[2017-03-28 08:00] VITALS: BP 128/62
[2017-03-28 12:00] VITALS: BP 155/62
[2017-03-28] MEDS ORDERED: ULTRAM50 MG PO ×2 (12:28→12:29)
--- NOTE | 2017-03-28 15:10 | NUR ---
ALERT AND ORIENTED X4. SITTING UP IN BED. DISCHARGE INSTRUCTIONS GIVEN VERBALLY AND WRITTEN. DISCHARGE PAPERS SIGNED ON CHART. WRITTEN SCRIPT FOR ULTRAM PROVIDED. DC RT FA IV TIP INTACT. ESCORT TO RIDE VIA WHEELCHAIR.
== END 2017-03-28 15:12 | disposition home or self-care (01) | DRG 354 ==
LOC: D.M2 18:30
PROVIDERS: Family Medicine; Surgery; ADMIT Family Medicine
PROC: 0WUF0JZ Supplement Abdominal Wall with Synthetic Substitute, Open Approach (ICD-10-PCS; principal; 2017-03-24 09:30)
DX: K43.9 Ventral hernia without obstruction or gangrene (principal); K92.2 Gastrointestinal hemorrhage, unspecified; F17.203 Nicotine dependence unspecified, with withdrawal; D72.829 Elevated white blood cell count, unspecified; K21.9 Gastro-esophageal reflux disease without esophagitis; M06.9 Rheumatoid arthritis, unspecified; K64.8 Other hemorrhoids

== ENCOUNTER → 2017-04-18 12:07 | Outpatient (CLI) | payer MEDICAID ==
[2017-03-18 14:20] VITALS: BMI 43.6
[~2017-04-18 12:07] MED LIST changes: +TOUJEO SOL300 UNIT/1 SC
[2017-04-18 12:22] LABS: BASOPHILS 0.5 % (0-2); EOSINOPHILS 6.2 % (0-7); HEMATOCRIT 35.3 % (36.0-48.0); HEMOGLOBIN 11.6 g/dL (12-16); IMMATURE GRANULOCYTES 0.9 % (0-5); LYMPHOCYTES 19.1 % (15-50); MCH 30.8 pg (26.0-34.0); MCHC 32.9 g/dL (31.0-37.0); MCV 93.6 fL (80.0-100.0); MEAN PLATELET VOLUME 9.2 fL (7.4-10.4); NEUTROPHILS 65.3 % (40-80); RBC 3.77 10x6/uL (4.00-5.40); RDW 14.4 % (11.5-14.5); WBC 12.7 10x3/uL (4.8-10.8)
[2017-04-18 12:27] LABS: PLATELET COUNT 338 10x3/uL (130-400)
[2017-04-18 12:41] LABS: ANION GAP 12.8 mmol/L (8-16); CREATININE - SERUM 0.9 mg/dL (0.6-1.3); POTASSIUM - SERUM 3.8 mmol/L (3.5-5.1)
== END | disposition home or self-care (01) ==
LOC: D.LAB 12:07
PROVIDERS: Surgery
DX: E86.0 Dehydration (principal)

== ENCOUNTER → 2017-04-27 05:32 | Outpatient (CLI) | payer MEDICAID ==
[~2017-04-27] VITALS: Ht 149.9 cm; Wt 102.3 kg
[~2017-04-27 05:32] MED LIST changes: +ESTRACE 0.5 MG0.5 MG PO; +FUROSEMIDE20 MG PO
[2017-04-27 06:48] VITALS: BP 122/71; Ht 149.9 cm; Wt 102.3 kg
[2017-04-27 06:56] LABS: BASOPHILS 0.3 % (0-2); EOSINOPHILS 9.2 % (0-7); HEMATOCRIT 32.6 % (36.0-48.0); HEMOGLOBIN 10.7 g/dL (12-16); IMMATURE GRANULOCYTES 0.4 % (0-5); LYMPHOCYTES 22.3 % (15-50); MCHC 32.8 g/dL (31.0-37.0); MCV 91.3 fL (80.0-100.0); MEAN PLATELET VOLUME 8.8 fL (7.4-10.4); NEUTROPHILS 59.8 % (40-80); PLATELET COUNT 373 10x3/uL (130-400); RBC 3.57 10x6/uL (4.00-5.40); RDW 14.7 % (11.5-14.5); WBC 10.2 10x3/uL (4.8-10.8)
[2017-04-27 07:00] LABS: APTT 33.1 SECONDS (22.8-39.4); INR 0.94 (0.85-1.17); PROTIME 12.5 SECONDS (11.6-15.0)
[2017-04-27 07:06] LABS: CALC OSMOLALITY 273 mosm/kg (275-300); CALCIUM 9.1 mg/dL (8.5-10.1); CARBON DIOXIDE 26.4 mmol/L (21.0-32.0); CHLORIDE - SERUM 103 mmol/L (98-107); CREATININE - SERUM 0.7 mg/dL (0.6-1.3); GLUCOSE 113 mg/dL (74-106); POTASSIUM - SERUM 3.8 mmol/L (3.5-5.1); SODIUM 138 mmol/L (136-145); UREA NITROGEN 5 mg/dL (7-18); eGFR NON AFRICAN AMERICAN > 90 mL/min (90-120)
--- NOTE | 2017-04-27 11:37 | NUR ---
1130- Patient discharged and escorted out by volunteer.
== END | disposition home or self-care (01) ==
LOC: D.SP 04-22 08:30 → D.OPS 05:32 → D.SP 08:00 → D.CT 08:00 → D.SP 14:00
PROVIDERS: General Practice
DX: L76.34 Postprocedural seroma of skin and subcutaneous tissue following other procedure (principal); Z01.812 Encounter for preprocedural laboratory examination

== ENCOUNTER 2017-05-22 13:21 | Emergency (ER) | payer MEDICAID ==
[2017-04-27 06:48] VITALS: BMI 45.5
[2017-05-22 14:29] LABS: HEMATOCRIT 35.1 % (36.0-48.0); HEMOGLOBIN 11.6 g/dL (12-16); LYMPHOCYTES 30.5 % (15-50); MCH 29.1 pg (26.0-34.0); MEAN PLATELET VOLUME 8.5 fL (7.4-10.4); NEUTROPHILS 65.3 % (40-80); PLATELET COUNT 325 10x3/uL (130-400); RBC 3.99 10x6/uL (4.00-5.40); RDW 15.1 % (11.5-14.5); WBC 9.6 10x3/uL (4.8-10.8)
[2017-05-22 14:42] LABS: APPEARANCE CLOUDY (CLEAR); BILIRUBIN NEGATIVE (NEGATIVE); COLOR YELLOW (YELLOW); GLUCOSE NEGATIVE (NEGATIVE); KETONE NEGATIVE (NEGATIVE); LEUKOCYTE ESTERASE 2+ (NEGATIVE); NITRITE NEGATIVE (NEGATIVE); PROTEIN NEGATIVE (NEGATIVE); SPECIFIC GRAVITY 1.015 (1.005-1.020); UROBILINOGEN NORMAL (NORMAL)
[2017-05-22 14:44] LABS: ALBUMIN 3.3 g/dL (3.4-5.0); ALKALINE PHOSPHATASE 113 U/L (46-116); ALT (SGPT) 29 U/L (10-68); BILIRUBIN - TOTAL 0.38 mg/dL (0.2-1.3); CALC OSMOLALITY 277 mosm/kg (275-300); CARBON DIOXIDE 29.1 mmol/L (21.0-32.0); CHLORIDE - SERUM 101 mmol/L (98-107); CREATININE - SERUM 0.8 mg/dL (0.6-1.3); GLUCOSE 115 mg/dL (74-106); POTASSIUM - SERUM 3.6 mmol/L (3.5-5.1); SODIUM 139 mmol/L (136-145); UREA NITROGEN 10 mg/dL (7-18); eGFR NON AFRICAN AMERICAN 85 mL/min (90-120)
[2017-05-22 14:55] LABS: WHITE CELLS - URINE 25-50 /hpf (0-5)
[2017-05-22 14:56] LABS: BACTERIA MODERATE /hpf (NONE SEEN); MUCUS <1+ /lpf (NONE SEEN)
== END 2017-05-22 17:46 | disposition home or self-care (01) ==
LOC: D.ER 13:21
PROVIDERS: Family Medicine
DX: G89.18 Other acute postprocedural pain (principal); N39.0 Urinary tract infection, site not specified; N76.0 Acute vaginitis; B96.89 Other specified bacterial agents as the cause of diseases classified elsewhere; A59.9 Trichomoniasis, unspecified; R53.83 Other fatigue

== ENCOUNTER → 2017-05-25 10:05 | Outpatient (CLI) | payer MEDICAID ==
[2017-04-27 06:48] VITALS: BMI 45.5
== END | disposition home or self-care (01) ==
LOC: D.CT 10:05
DX: K91.872 Postprocedural seroma of a digestive system organ or structure following a digestive system procedure (principal)

== ENCOUNTER → 2017-05-31 07:25 | Outpatient (CLI) | payer MEDICAID ==
[2017-04-27 06:48] VITALS: BMI 45.5
== END | disposition home or self-care (01) ==
LOC: D.RT 07:25
DX: J45.909 Unspecified asthma, uncomplicated (principal)

== ENCOUNTER 2017-06-07 06:41 | Outpatient (CLI) | payer MEDICAID ==
[~2017-06-07] VITALS: Ht 149.9 cm; Wt 100.9 kg
--- NOTE | ~2017-06-07 | HEMODYNAMI ---
PATIENT:BEREKET ROMANO MEDICAL RECORD: [id number] : 76 LOCATION:[facility] ADMISSION DATE: 06/07/17 Generatedon:06/07/201710:53 Patient name: BEREKET ROMANO Patient #: [id number] SSN: : 1980 Date of study: 06/07/2017 Page: Of Hemodynamic Procedure Report Patient Data Patient Demographics Procedure consent was obtained First Name: BEREKET Gender: Female Last Name: ROSALINA : 1980 Middle Initial: NIKKO Age: 36 year(s) Patient #: [id number] Race: Unknown Additional ID: [id number] Contact details [address]: [address] [place] [address] State: [place] City: [place] Zip code: [address] Admission Admission Data Admission Date: 06/07/2017 Admission Time: 6:41 Procedure Procedure Types Cath Procedure Peripheral Cath Diagnostic Procedure Abscess Procedure Description Procedure Date Procedure Date: 06/07/2017 Procedure Start Time: 10:30 Procedure Staff Name Function Darryl Good MD Performing Physician Jesus Dumont RT Scrub Maylin Laureano RN Nurse Jesus Dumont RT Monitor Procedure Data Cath Procedure Fluoroscopy Diagnostic fluoroscopy Total fluoroscopy Time: 0.3 time: 0.3 min min Diagnostic fluoroscopy Total fluoroscopy dose: 17 dose: 17 mGy mGy Contrast Material Contrast Material Type Amount (ml) Isovue 300 14 Procedure Medications Medication Administration Route Dosage Fentanyl I.V. 50 mcg Versed I.V. 1 mg Hemodynamics Rest Heart Rate: 87 (bpm) Snapshots Pre Cath Intra NCS Post Cath Vital Signs Time Heart Resp SPO2 NIBP (mmHg) Rhythm Pain Sedation Rate (ipm) (%) Status Level (bpm) 10:22:54 91 19 100 135/77(109) NSR 0 (11) 10(A) , No pain 10:27:10 90 19 100 131/77(97) NSR 0 (11) 10(A) , No pain 10:31:26 90 19 100 143/85(122) NSR 0 (11) 10(A) , No pain 10:35:48 91 19 100 145/77(101) NSR 0 (11) 10(A) , No pain 10:40:06 88 21 100 133/75(101) NSR 0 (11) 10(A) , No pain 10:44:18 89 12 100 136/80(99) NSR 0 (11) 10(A) , No pain 10:48:34 87 22 100 132/79(101) NSR 0 (11) 10(A) , No pain 10:52:54 95 49 99 129/77(105) NSR 0 (11) 10(A) , No pain Medications Time Medication Route Dose Verified Delivered Reason Notes Effectivene ss by by 10:30:31 Fentanyl I.V. 50 Maylin Maylin for mcg Sridevi Sridevi sedation RN RN 10:30:47 Versed I.V. 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 Start room use. 10:00:58 Time tracking: Regular hours 10:01:04 Plan of Care:Hemodynamics will remain stable., Cardiac rhythm will remain stable., Comfort level will be maintained., Respiratory function will remain adequate., Patient/ family verbilizes understanding of procedure., Procedure tolerated without complication., Recovers from procedure without complications.. 10:01:10 Patient received from Outpatients to IR Alert and oriented. Tansferred to table in Supine position. 10:01:11 Correct patient and procedure confirmed by team. 10:01:13 Signed procedure consent form obtained from patient. 10:01:14 ECG and BP/O2 sat monitors applied to patient. 10:01:16 Full Disclosure recording started 10:01:16 - 10:01:20 H&P Date Dictated: 06/07/2017 H&P Addendum completed by physician on day of procedure. (MUST COMPLETE FOR ALL OUTPATIENTS). 10:01:20 Pre-procedure instructions explained to patient. 10:01:21 Pre-op teaching completed and patient verbalized understanding. 10::25 Family in waiting room. 10::27 Patient NPO since Midnight. 10::29 Is the patient allergic to Iodine/contrast media? No. 10:01:31 Is patient on blood thinner?No 10:01:33 Patient diabetic? No. 10::34 - 10::34 ----Pre-sedation anethsthesia assessment.---- 10::37 Previous problem with sedation/anesthesia? No ? 10:01:38 Snore? Yes 10:01:40 Sleep apnea? No 10:01:44 Deviated septum? No 10:01:45 Opens mouth fully? Yes 10:01:46 Sticks out tongue? Yes 10:01:48 Airway obstruction? No ? 10:01:49 Dentures? No ? 10:01:57 Patient pain scale 0/10 no pain. 10:02:02 Use device set IR Diagnostic 10:02:03 Sterile Angiographic Pack opened to sterile field. 10:02:04 Bag Decanter opened to sterile field. 10:12:03 IV patent on arrival in right wrist with 0.9% NaCl at O. 10:12:04 Sharps counted by scrub and verified by R.N. 10:12:05 Alarms reviewed by R. N. 10:20:23 Right abdomen area was prepped with chlora-prep and draped in sterile fashion 10::27 Vital chart was started 10::29 Baseline sample Acquired. 10::37 Rhythm: sinus rhythm 10::18 Physician arrived 10:: --------ALL STOP TIME OUT------ 10::20 Final Timeout: patient, procedure, and site verified with staff and physician. All members of the team are in agreement. :: Right abdomen site verified by team. 10:29:29 Physical assessment completed. ASA score P 3 - A patient with severe systemic disease as per Darryl Good MD. 10:29:32 Sedation plan: IV Moderate Sedation Versed, Fentanyl 10:30:14 Procedure started. 10:30:19 Local anesthetic to Abdominal area with Lidocaine 1% by Darryl Good MD.INITIAL ACCESS ONLY 10:30:31 Fentanyl 50 mcg I.V. was administered by Maylin Laureano RN; for sedation; 10:30:47 Versed 1 mg I.V. was administered by Maylin Laureano RN; for sedation; 10:44:24 Procedure ended.(Physican Out) 10:48:23 Fluoroscopy time 00.30 minutes. 10:48:26 Fluoroscopy dose: 17 mGy 10:48:26 Flurop Dose total: 17 10:48:31 Contrast amount:Isovue 300 14ml. 10:48:33 Sharps counted by scrub and verified by R.N. 10:48:44 Insertion/operative site no bleeding no hematoma. 10:48:46 Post-op/insertion site Right Lumbar area dressed using a 4 x 4 and Tegaderm. 10:49:00 Post Abdominal area:stable 10:49:04 Post-procedure physical assessment completed. ASA score P 3 - A patient with severe systemic disease as per Darryl Good MD. 10:49:09 Post procedure rhythm: unchanged. 10:49:10 Procedure and supply charges have been captured, reviewed, submitted an d are correct. 10:52:48 Report given to Outpatients. 10:52:57 Patient transfered to Outpatients with Bed. 10:53:41 Vital chart was stopped Device Usage Item Name Manufacture Quantity Catalog Hospital Part Current Minimal Lot# / Number Charge Number Stock Stock Serial# Code Sterile Cardinal 1 [id number] Angiographic Health Pack Bag Decanter Microtek 1 [id number] 5 [employer] Signature Audit [place] Stage Time Signature Unsigned Intra-Procedure 06/07/2017 Jesus 10:53:38 AM [place] RT (R) (CV) Signatures Monitor : Jesus Signature : Julia RT Date : Time : [facility] [address] [place] [address]
[2017-06-07 07:36] VITALS: BP 126/73; Ht 149.9 cm; Wt 100.9 kg
[2017-06-07 08:09] LABS: BASOPHILS 0.3 % (0-2); HEMATOCRIT 35.7 % (36.0-48.0); HEMOGLOBIN 11.4 g/dL (12-16); IMMATURE GRANULOCYTES 0.3 % (0-5); LYMPHOCYTES 33.3 % (15-50); MCH 28.6 pg (26.0-34.0); MCHC 31.9 g/dL (31.0-37.0); MCV 89.5 fL (80.0-100.0); MEAN PLATELET VOLUME 8.8 fL (7.4-10.4); MONOCYTES 9.2 % (2-11); NEUTROPHILS 53.9 % (40-80); PLATELET COUNT 335 10x3/uL (130-400); RBC 3.99 10x6/uL (4.00-5.40); RDW 15.3 % (11.5-14.5); WBC 7.3 10x3/uL (4.8-10.8)
[2017-06-07 08:14] LABS: ANION GAP 11.2 mmol/L (8-16); CALCIUM 8.8 mg/dL (8.5-10.1); CARBON DIOXIDE 29.4 mmol/L (21.0-32.0); CREATININE - SERUM 0.9 mg/dL (0.6-1.3); POTASSIUM - SERUM 3.6 mmol/L (3.5-5.1)
[2017-06-07 08:25] LABS: APTT 29.8 SECONDS (22.8-39.4); INR 0.9 (0.85-1.17)
--- NOTE | 2017-06-07 15:27 | NUR ---
1300 DRESSED AWAKE & ALERT. GIVEN DISCHARGE INSTRUCTIONS INCLUDING MED REC & NP OUTPATIENT DISCHARGE INSTRUCTIONS. TO PRIVATE CAR PER WHEELCHAIR BY THIS NURSE. HOME WITH . Mckay AVALOS R.N.
== END 2017-06-07 13:00 | disposition home or self-care (01) ==
LOC: D.OPS 06:41 → D.RAD 09:00 → D.OPS 13:00
PROVIDERS: Specialist
DX: L02.211 Cutaneous abscess of abdominal wall (principal); Z01.812 Encounter for preprocedural laboratory examination

== ENCOUNTER → 2017-06-16 05:44 | Outpatient (CLI) | payer MEDICAID ==
[~2017-06-16] VITALS: Ht 149.9 cm; Wt 103.2 kg
--- NOTE | ~2017-06-16 | HEMODYNAMI ---
PATIENT:BEREKET ROMANO MEDICAL RECORD: [id number] : 76 LOCATION:[facility] ADMISSION DATE: 06/16/17 Generatedon:06/16/20179:25 Patient name: BEREKET ROMANO Patient #: [id number] SSN: : 1980 Date of study: 06/16/2017 Page: Of Hemodynamic Procedure Report Patient Data Patient Demographics Procedure consent was obtained First Name: BEREKET Gender: Female Last Name: ROSALINA : 1980 Middle Initial: NIKKO Age: 36 year(s) Patient #: [id number] Race: Unknown Additional ID: [id number] Contact details Address: [address] [place] [address] State: [place] City: [place] Zip code: [address] Admission Admission Data Admission Date: 06/16/2017 Admission Time: 5:44 Procedure Procedure Types Cath Procedure Peripheral Cath Diagnostic Procedure Miscellaneous Procedure Description Procedure Date Procedure Date: 06/16/2017 Procedure Start Time: 9:10 Procedure Staff Name Function Jesus Dumont RT Monitor Darryl Good MD Performing Physician Maylin Laureano RN Nurse Ingrid Anderson RT Scrub Procedure Data Cath Procedure Fluoroscopy Diagnostic fluoroscopy Total fluoroscopy Time: 0.5 time: 0.5 min min Diagnostic fluoroscopy Total fluoroscopy dose: 25 dose: 25 mGy mGy Contrast Material Contrast Material Type Amount (ml) Isovue 300 10 Procedure Medications Medication Administration Route Dosage Ancef (1Gm/50ml NS) 1 g Hemodynamics Rest Heart Rate: 80 (bpm) Snapshots Pre Cath Intra NCS Post Cath Vital Signs Time Heart Resp SPO2 NIBP Rhythm Pain Sedation Rate (ipm) (%) (mmHg) Status Level (bpm) 8:56:19 79 15 98 129/61(93) NSR 0 (11) 10(A) , No pain Medications Time Medication Route Dose Verified Delivered Reason Notes Effectiveness by by 9:15:31 Ancef IV 1 g Maylin Maylin (1Gm/50ml Sridevi Laureano NS) 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 Start room use. 8:43:54 Time tracking: Regular hours 8:43:59 Plan of Care:Hemodynamics will remain stable., Cardiac rhythm will remain stable., Comfort level will be maintained., Respiratory function will remain adequate., Patient/ family verbilizes understanding of procedure., Procedure tolerated without complication., Recovers from procedure without complications.. 8:44:08 Patient received from Outpatients to IR Alert and oriented. Tansferred to table in Supine position. 8:44:13 Correct patient and procedure confirmed by team. 8:44:15 Signed procedure consent form obtained from patient. 8:44:16 ECG and BP/O2 sat monitors applied to patient. 8:44:17 8:44:20 H&P Date Dictated: 06/16/2017 H&P Addendum completed by physician on day of procedure. (MUST COMPLETE FOR ALL OUTPATIENTS). 8:44:21 Pre-op teaching completed and patient verbalized understanding. 8:44:21 Pre-procedure instructions explained to patient. 8:44:23 Family in waiting room. 8:44:25 Patient NPO since Midnight. 8:44:31 Is patient on blood thinner?No 8:44:33 Patient diabetic? No. 8:44:34 ----Pre-sedation anethsthesia assessment.---- 8:44:34 8:44:38 Previous problem with sedation/anesthesia? No ? 8:44:40 Snore? Yes 8:44:41 Sleep apnea? No 8:44:42 Deviated septum? No 8:44:44 Opens mouth fully? Yes 8:44:45 Sticks out tongue? Yes 8:44:50 Dentures? No ? 8:44:57 Airway obstruction? Yes copd 8:45:01 Use device set IR Diagnostic 8:45:02 Sterile Angiographic Pack opened to sterile field. 8:45:03 Bag Decanter opened to sterile field. 8:45:16 Patient pain scale 0/10 no pain. 8:45:28 IV patent on arrival in left forearm with 0.9% NaCl at [facility]. 8:45:32 Sharps counted by scrub and verified by R.N. 8:45:33 Alarms reviewed by R. N. 8:45:42 Right abdomen area was prepped with chlora-prep and draped in sterile fashion 8:54:53 Vital chart was started 8:54:53 Baseline sample Acquired. 8:54:56 Rhythm: sinus rhythm 8:54:58 Full Disclosure recording started 9:09:47 Physician arrived 9:09:48 --------ALL STOP TIME OUT------ 9:09:51 Final Timeout: patient, procedure, and site verified with staff and physician. All members of the team are in agreement. 9:09:55 Right abdomen site verified by team. 9:10:00 Physical assessment completed. ASA score P 3 - A patient with severe systemic disease as per Jesus Dumont RT (R) (CV). 9:10:20 Procedure started. 9:10:20 Full Disclosure recording started 9:10:33 Local anesthetic to Abdominal area with Lidocaine 1% by Darryl Good MD.INITIAL ACCESS ONLY 9:15:31 Ancef (1Gm/50ml NS) 1 g IV was administered by Maylin Laureano RN; ; 9:21:54 Procedure ended.(Physican Out) 9:22:17 Fluoroscopy time 00.50 minutes. 9:22:21 Fluoroscopy dose: 25 mGy 9:22:21 Flurop Dose total: 25 9:22:27 Contrast amount:Isovue 300 10ml. 9:22:39 BAG, DRAINAGE EMPTY 600ML W/JACKIE opened to sterile field. 9:23:34 Post-op/insertion site Right Abdominal area dressed using a 4 x 4 and Tegaderm. 9:24:00 Post Abdominal area:stable 9:24:02 Post Procedure Pulses reassessed and unchanged 9:24:08 Post-procedure physical assessment completed. ASA score P 3 - A patient with severe systemic disease as per Darryl Good MD. 9:24:11 Post procedure rhythm: unchanged. 9:24:14 Procedure and supply charges have been captured, reviewed, submitted and are correct. 9:25:23 Report given to Outpatients. 9:25:27 Patient transfered to Outpatients with Bed. Device Usage Item Name Manufacture Quantity Catalog Hospital Part Current Minimal Lot# / Number Charge Number Stock Stock Serial# Code Sterile Cardinal 1 [id number] 5 Angiographic Health Pack Bag Decanter Microtek 1 [id number] 5 Medical Inc. BAG, Merit 1 [id number] 5 DRAINAGE Medical EMPTY 600ML W/JACKIE Signature Audit [place] Stage Time Signature Unsigned Intra-Procedure 06/16/2017 Jesus 9:25:48 AM Julia RT (R) (CV) Signatures Monitor : Jesus Signature : Julia RT Date : Time : [address] [place] [address]
[2017-06-16 06:21] LABS: BASOPHILS 0.2 % (0-2); EOSINOPHILS 2.1 % (0-7); HEMATOCRIT 35.9 % (36.0-48.0); HEMOGLOBIN 11.6 g/dL (12-16); IMMATURE GRANULOCYTES 0.5 % (0-5); LYMPHOCYTES 40.4 % (15-50); MCH 28.8 pg (26.0-34.0); MCHC 32.3 g/dL (31.0-37.0); MCV 89.1 fL (80.0-100.0); MEAN PLATELET VOLUME 8.8 fL (7.4-10.4); NEUTROPHILS 49.8 % (40-80); PLATELET COUNT 326 10x3/uL (130-400); RBC 4.03 10x6/uL (4.00-5.40); RDW 15.5 % (11.5-14.5)
[2017-06-16 06:30] LABS: APTT 29.6 SECONDS (22.8-39.4); INR 0.85 (0.85-1.17); PROTIME 11.5 SECONDS (11.6-15.0)
[2017-06-16 07:06] LABS: ANION GAP 11.9 mmol/L (8-16); CARBON DIOXIDE 29.1 mmol/L (21.0-32.0); CREATININE - SERUM 0.9 mg/dL (0.6-1.3)
[2017-06-16 07:16] VITALS: Ht 149.9 cm; Wt 103.2 kg
--- NOTE | 2017-06-16 13:44 | NUR ---
1145 DISCHARGE INSTRUCTIONS COMPLETE. NO PRESCRIPTIONS GIVEN. SHE HAS NO QUESTIONS OR CONCERNS AT THIS TIME. ESCORTED OUT BY VOLUNTEER.
== END | disposition home or self-care (01) ==
LOC: D.OPS 05:44 → D.RAD 08:00 → D.OPS 08:00
PROVIDERS: Specialist
DX: L02.211 Cutaneous abscess of abdominal wall (principal); Z01.812 Encounter for preprocedural laboratory examination

== ENCOUNTER → 2017-08-02 19:21 | Outpatient (CLI) | payer MEDICAID ==
[2017-06-16 07:16] VITALS: BMI 45.9
[~2017-08-02 19:21] MED LIST changes: +ADVAIR 250/501 DISK INH; +BISOPROLOL-HCT1 EAC1 PO; +CLARITIN 10 MG10 MG PO; +DULERA 200 MCG8.8 GM INH; -ESTRACE 0.5 MG0.5 MG PO; +ESTRACE1 MG PO; +EXCEDRIN EXTRA1 TAB PO; +IPRAT-ALBUT 0.5-3 ML UPD; +REMERON15 MG PO; +REMERON30 MG; +REMERON30 MG PO; +ROBAXIN500 MG PO; +VIBRAMYCIN50 MG PO
== END | disposition home or self-care (01) ==
LOC: D.SLEEP 19:21
DX: G47.33 Obstructive sleep apnea (adult) (pediatric) (principal)

== ENCOUNTER → 2017-08-10 19:20 | Outpatient (CLI) | payer MEDICAID ==
[2017-06-16 07:16] VITALS: BMI 45.9
== END | disposition home or self-care (01) ==
LOC: D.SLEEP 19:20
DX: G47.33 Obstructive sleep apnea (adult) (pediatric) (principal)

== ENCOUNTER → 2017-08-18 08:40 | Outpatient (CLI) | payer MEDICAID ==
[2017-06-16 07:16] VITALS: BMI 45.9
== END | disposition home or self-care (01) ==
LOC: D.MRI 08:40
DX: R51 Headache (principal); H53.489 Generalized contraction of visual field, unspecified eye

== ENCOUNTER → 2017-09-19 08:38 | Outpatient (CLI) | payer MEDICAID ==
[2017-06-16 07:16] VITALS: BMI 45.9
== END | disposition home or self-care (01) ==
LOC: D.RT 08:38
DX: R94.2 Abnormal results of pulmonary function studies (principal)

== ENCOUNTER → 2017-09-20 11:07 | Outpatient (CLI) | payer MEDICAID ==
[2017-06-16 07:16] VITALS: BMI 45.9
--- NOTE | 2017-10-04 12:14 | ST ---
PATIENT:BEREKET ROMANO MEDICAL RECORD: [id number] SEX: F LOCATION:[facility] ORDER #: ADMISSION DATE: 09/20/17 AGE OF PATIENT: 37 REFERRING PHYSICIAN: INTERPRETING PHYSICIAN: CLIFFORD VILLASEÑOR MD DATE OF SERVICE: 09/20/2017 PROCEDURE: Nuclear Stress Test. INDICATION: Chest pain of unknown etiology. She was exercised on standard Lexiscan protocol with 32.1 mCi injected at peak stress, 12.5 mCi injected previously for rest images. FINDINGS: Gated SPECT reveals preserved ejection fraction greater than 70% with good wall motion and thickening and brightening throughout all segments. SPECT IMAGING: Sestamibi is used as myocardial perfusion agent. There is homogeneous uptake throughout all segments at rest and stress with no evidence of inducible ischemia or previous infarction. OVERALL IMPRESSION: 1. This is a normal nuclear stress test with no evidence of inducible ischemia or previous infarction. 2. Gated SPECT reveals preserved ejection fraction greater than 70% in this patient with ongoing symptomatology. The current scan does not suggest the presence of hemodynamically significant coronary disease. Evaluate noncardiac etiology for her symptomatology. TRANSINT:[id number] Voice Confirmation ID: [id number] DOCUMENT ID: [id number] CLIFFORD VILLASEÑOR MD at 1214 CC: [id number] DICTATION DATE: 09/21/17 1106 BRIM ROUNDER: 09/22/17 0153 DEP CLI 09/20/[address] [address]
== END | disposition home or self-care (01) ==
LOC: D.NM 09-19 11:00
DX: I20.9 Angina pectoris, unspecified (principal)

== ENCOUNTER → 2017-10-25 09:45 | Outpatient (CLI) | payer MEDICAID ==
[2017-06-16 07:16] VITALS: BMI 45.9
== END | disposition home or self-care (01) ==
LOC: D.CT 09:45
DX: R10.9 Unspecified abdominal pain (principal); R19.00 Intra-abdominal and pelvic swelling, mass and lump, unspecified site

== ENCOUNTER 2017-11-10 05:51 | Day surgery (SDC) | payer MEDICAID ==
[2017-11-09 13:31] LABS: HEMATOCRIT 39.7 % (36.0-48.0); HEMOGLOBIN 12.6 g/dL (12-16); MCHC 31.7 g/dL (31.0-37.0); MCV 88.2 fL (80.0-100.0); MEAN PLATELET VOLUME 8.9 fL (7.4-10.4); RBC 4.5 10x6/uL (4.00-5.40); RDW 16.1 % (11.5-14.5); WBC 9.7 10x3/uL (4.8-10.8)
[2017-11-09 13:42] LABS: ANION GAP 12.6 mmol/L (8-16); CALCIUM 9.2 mg/dL (8.5-10.1); CARBON DIOXIDE 29.1 mmol/L (21.0-32.0); CREATININE - SERUM 0.9 mg/dL (0.6-1.3); POTASSIUM - SERUM 3.7 mmol/L (3.5-5.1)
[~2017-11-10] VITALS: Ht 149.9 cm; Wt 116.1 kg
--- NOTE | ~2017-11-10 | OP ---
PATIENT NAME: BEREKET ROMANO MEDICAL RECORD: [id number] :76 LOCATION:D.OPS ADMISSION DATE: SURGEON: OREN ANDERSEN MD DATE OF OPERATION: 11/10/2017 PREOPERATIVE DIAGNOSES: 1. Chronic lower abdominal pain. 2. Suprapubic scar formation. 3. Morbid obesity. 4. Tobacco dependent syndrome. 5. Chronic obstructive pulmonary disease. POSTOPERATIVE DIAGNOSES: 1. Chronic lower abdominal pain. 2. Suprapubic scar formation. 3. Morbid obesity. 4. Tobacco dependent syndrome. 5. Chronic obstructive pulmonary disease. PROCEDURE: 1. Exploratory laparoscopy with lysis of adhesions time 60 minutes. 2. Suprapubic exploration with excision of subcutaneous scar tissue. SURGEON: Oren Andersen MD REPORT OF PROCEDURE: The patient's abdomen was prepped and draped in sterile fashion. A Veress needle was inserted in the left upper quadrant and the abdomen was insufflated. A 5-mm Visiport trocar was inserted in the left lateral abdomen, I could visualize the Veress needle and there was no sign of any injury to bowel or surrounding structures. Another 5-mm trocar was placed in the midline just above the umbilicus. We then performed sharp dissection of some adhesions in the pelvis of the small bowel and omentum to the anterior abdominal wall. There was a piece of mesh in the pelvis from the previous hernia repair and there were adhesions up to this mesh material. We were able to free up all the adhesions to the anterior abdominal wall and pelvis with this. I did not see any evidence of any mesh infections. There was no sign of any bile leakage consistent with the enterocutaneous fistula. The remainder of the pelvis appeared to be normal. She has surgically absent uterus. At this point, we irrigated out the abdomen and assured there was no sign of any bleeding. At this point, the ports and insufflation were then removed. The incision sites were closed with interrupted 5-0 Monocryl and infused with a total of 7 mL of 0.25% Marcaine with epinephrine. We then made a small incision in the midline, in the suprapubic region below the umbilicus. Electrocautery was used to dissect through the subcutaneous tissue. As we came down towards the fascia, there was noted to be a significant amount of scar tissue present. This did not appear to be acutely inflamed and there was never abscess pocket or fluid collection encountered. I ended up just coming around all of this old scar tissue and removing it until we came down to what appeared to be normal fatty tissue on all sides and what appeared to be normal scar fascia inferiorly. Once the tissue was completely excised, we irrigated out the wound and assured there was no sign of any bleeding. The bleeding that was encountered was treated with electrocautery. Again, I did not see any evidence of any fistulization and there was no sign of any infection present. There were a few sutures. There were Prolene that were present in the wound and these were excised. At this point, a 15-Welsh Fred drain was inserted into the wound bed OPERATIVE REPORT [id number] BEREKET ROMANO and sutured down with 2-0 nylon. The subcutaneous tissues were reapproximated with interrupted 3-0 Vicryl and infused with 10 mL of 0.25% Marcaine with epinephrine. The skin was then closed with running subcutaneous 5-0 Monocryl. All the wounds were then dressed appropriately. COMPLICATIONS: None. CONDITION: Stable. ANESTHESIA: General endotracheal and local. BLOOD LOSS: 30 mL. TRANSINT:[id number] Voice Confirmation ID: [id number] DOCUMENT ID: [id number] OREN ANDERSEN MD at 0956 CC: CHANTALE TRIVEDI MD [id number] DICTATION DATE: 11/10/17 1353 COACH CLEANER: 11/10/17 1523 [facility] 11/10/17 [facility] [address] [place] [address]
[~2017-11-10 05:51] MED LIST changes: -ADVAIR 250/501 DISK INH; -DULERA 200 MCG8.8 GM INH; -EXCEDRIN EXTRA1 TAB PO; -IPRAT-ALBUT 0.5-3 ML UPD; -REMERON30 MG PO; -ROBAXIN500 MG PO; -VIBRAMYCIN50 MG PO
[2017-11-10] MEDS ORDERED: REMERON30 MG PO (08:12)
[2017-11-10] MEDS ORDERED: ULTRAM50 MG PO (08:14)
[2017-11-10] MEDS ORDERED: ROBAXIN500 MG PO (08:16)
[2017-11-10] MEDS ORDERED: PHENERGAN25 M1 PO (08:18)
[2017-11-10] MEDS ORDERED: DULERA 200 MCG8.8 GM INH (08:19)
[2017-11-10] MEDS ORDERED: ADVAIR 250/501 DISK INH (08:21)
[2017-11-10] MEDS ORDERED: EXCEDRIN EXTRA1 TAB PO (08:23)
[2017-11-10 08:27] VITALS: BP 122/70; Ht 149.9 cm; Wt 116.1 kg
[2017-11-10] MEDS ORDERED: PERCOCET 10/3251 TA1 PO (13:46)
== END 2017-11-10 17:40 | disposition home or self-care (01) ==
LOC: D.OPS 05:51 → D.PAN 11-11 13:00 → D.OPS 11-11 13:00
PROVIDERS: Anesthesiology
DX: K66.0 Peritoneal adhesions (postprocedural) (postinfection) (principal); M79.89 Other specified soft tissue disorders; E66.01 Morbid (severe) obesity due to excess calories; F17.200 Nicotine dependence, unspecified, uncomplicated; J44.9 Chronic obstructive pulmonary disease, unspecified; Z01.812 Encounter for preprocedural laboratory examination

== ENCOUNTER 2017-11-28 12:05 | Inpatient (IN) | payer MEDICAID ==
[~2017-11-28] VITALS: Ht 149.9 cm; Wt 118.0 kg
[~2017-11-28 12:05] MED LIST changes: +ADVAIR 250/501 DISK INH; +DULERA 200 MCG8.8 GM INH; +EXCEDRIN EXTRA1 TAB PO; +REMERON30 MG PO; +ROBAXIN500 MG PO
[2017-11-28 13:42] VITALS: BP 153/89; Ht 149.9 cm; Wt 118.0 kg
[2017-11-28 15:28] LABS: HEMATOCRIT 33.6 % (36.0-48.0); LYMPHOCYTES 26.5 % (15-50); MCH 27.8 pg (26.0-34.0); MCHC 32.7 g/dL (31.0-37.0); MCV 85.1 fL (80.0-100.0); NEUTROPHILS 68.2 % (40-80); PLATELET COUNT 345 10x3/uL (130-400); RBC 3.95 10x6/uL (4.00-5.40); RDW 15.3 % (11.5-14.5); WBC 9.3 10x3/uL (4.8-10.8)
[2017-11-28 15:52] LABS: CALC OSMOLALITY 281 mosm/kg (275-300); CALCIUM 8.6 mg/dL (8.5-10.1); CARBON DIOXIDE 29.6 mmol/L (21.0-32.0); CHLORIDE - SERUM 102 mmol/L (98-107); CREATININE - SERUM 0.8 mg/dL (0.6-1.3); GLUCOSE 108 mg/dL (74-106); SODIUM 142 mmol/L (136-145); UREA NITROGEN 8 mg/dL (7-18); eGFR NON AFRICAN AMERICAN 85 mL/min (90-120)
[2017-11-28 16:39] LABS: APPEARANCE SLT CLOUDY (CLEAR); COLOR DK YELLOW (YELLOW)
[2017-11-28 16:40] LABS: BACTERIA MODERATE /hpf (NONE SEEN); BILIRUBIN NEGATIVE (NEGATIVE); EPITHELIAL CELLS 25-50 /hpf (0-5); GLUCOSE NEGATIVE (NEGATIVE); KETONE NEGATIVE (NEGATIVE); NITRITE NEGATIVE (NEGATIVE); PROTEIN NEGATIVE (NEGATIVE); RED CELLS - URINE RARE /hpf (0-5); UROBILINOGEN NORMAL (NORMAL); WHITE CELLS - URINE 0-5 /hpf (0-5)
[2017-11-28 16:41] LABS: MUCUS >1+ /lpf (NONE SEEN)
[2017-11-28 16:47] VITALS: BP 129/75
[2017-11-28] MEDS ORDERED: IPRAT-ALBUT 0.5-3 ML UPD (20:13)
[2017-11-28 23:25] VITALS: BP 138/82
[2017-11-29] VITALS: BP 111/60
[2017-11-29 02:44] LABS: BASOPHILS 0.4 % (0-2); EOSINOPHILS 3.8 % (0-7); HEMATOCRIT 32.6 % (36.0-48.0); HEMOGLOBIN 10.4 g/dL (12-16); IMMATURE GRANULOCYTES 0.4 % (0-5); LYMPHOCYTES 27.6 % (15-50); MCH 27.9 pg (26.0-34.0); MCHC 31.9 g/dL (31.0-37.0); MONOCYTES 8.7 % (2-11); NEUTROPHILS 59.1 % (40-80); PLATELET COUNT 349 10x3/uL (130-400); RBC 3.73 10x6/uL (4.00-5.40); RDW 15.9 % (11.5-14.5); WBC 8.5 10x3/uL (4.8-10.8)
[2017-11-29 02:45] LABS: MCV 87.4 fL (80.0-100.0)
[2017-11-29 02:51] LABS: ANION GAP 12.9 mmol/L (8-16); CREATININE - SERUM 0.9 mg/dL (0.6-1.3)
[2017-11-29 02:57] LABS: POTASSIUM - SERUM 2.9 mmol/L (3.5-5.1)
[2017-11-29 04:00] VITALS: BP 113/73
[2017-11-29 09:02] VITALS: BP 128/73
[2017-11-29 12:45] VITALS: BP 116/69
[2017-11-29 17:19] VITALS: BP 97/58
[2017-11-30] VITALS: BP 91/46
[2017-11-30 04:00] VITALS: BP 91/46
[2017-11-30 05:31] LABS: BASOPHILS 0.2 % (0-2); EOSINOPHILS 6.2 % (0-7); HEMATOCRIT 32.4 % (36.0-48.0); IMMATURE GRANULOCYTES 0.6 % (0-5); LYMPHOCYTES 27.1 % (15-50); MCHC 30.9 g/dL (31.0-37.0); MCV 87.6 fL (80.0-100.0); MEAN PLATELET VOLUME 8.9 fL (7.4-10.4); MONOCYTES 8.7 % (2-11); NEUTROPHILS 57.2 % (40-80); PLATELET COUNT 324 10x3/uL (130-400); RDW 16.1 % (11.5-14.5); WBC 8.8 10x3/uL (4.8-10.8)
[2017-11-30 05:39] LABS: CALC OSMOLALITY 278 mosm/kg (275-300); CALCIUM 7.9 mg/dL (8.5-10.1); CARBON DIOXIDE 28.4 mmol/L (21.0-32.0); CHLORIDE - SERUM 104 mmol/L (98-107); CREATININE - SERUM 0.8 mg/dL (0.6-1.3); GLUCOSE 125 mg/dL (74-106); MAGNESIUM - SERUM 1.7 mg/dL (1.8-2.4); PHOSPHOROUS 2.3 mg/dL (2.5-4.9); SODIUM 141 mmol/L (136-145); eGFR NON AFRICAN AMERICAN 85 mL/min (90-120)
[2017-11-30 05:41] LABS: UREA NITROGEN 5 mg/dL (7-18)
[2017-11-30 08:01] VITALS: BP 107/61
[2017-11-30 12:20] VITALS: BP 113/64
[2017-11-30 17:02] VITALS: BP 116/52
[2017-11-30 21:08] VITALS: BP 113/60
[2017-12-01 01:16] VITALS: BP 92/46
[2017-12-01 06:00] VITALS: BP 133/75
[2017-12-01 07:52] VITALS: BP 125/74
[2017-12-01 12:11] VITALS: BP 110/55
[2017-12-01 20:00] VITALS: BP 114/60
[2017-12-02 04:00] VITALS: BP 132/86
[2017-12-02 05:49] LABS: BASOPHILS 0.4 % (0-2); EOSINOPHILS 7.3 % (0-7); HEMATOCRIT 33.1 % (36.0-48.0); HEMOGLOBIN 10.3 g/dL (12-16); IMMATURE GRANULOCYTES 0.8 % (0-5); LYMPHOCYTES 35.3 % (15-50); MCH 27.1 pg (26.0-34.0); MCHC 31.1 g/dL (31.0-37.0); MCV 87.1 fL (80.0-100.0); MEAN PLATELET VOLUME 8.9 fL (7.4-10.4); MONOCYTES 6.7 % (2-11); NEUTROPHILS 49.5 % (40-80); PLATELET COUNT 356 10x3/uL (130-400); RDW 16.2 % (11.5-14.5); WBC 7.4 10x3/uL (4.8-10.8)
[2017-12-02 06:07] LABS: CALC OSMOLALITY 284 mosm/kg (275-300); CALCIUM 8.5 mg/dL (8.5-10.1); CARBON DIOXIDE 29.7 mmol/L (21.0-32.0); CHLORIDE - SERUM 105 mmol/L (98-107); CREATININE - SERUM 0.8 mg/dL (0.6-1.3); GLUCOSE 131 mg/dL (74-106); MAGNESIUM - SERUM 1.7 mg/dL (1.8-2.4); PHOSPHOROUS 3.4 mg/dL (2.5-4.9); POTASSIUM - SERUM 3.2 mmol/L (3.5-5.1); SODIUM 143 mmol/L (136-145); UREA NITROGEN 7 mg/dL (7-18); eGFR NON AFRICAN AMERICAN 85 mL/min (90-120)
[2017-12-02 07:59] VITALS: BP 104/60
[2017-12-02] MEDS ORDERED: HYDROCODONE-APA1 TAB PO (10:39)
[2017-12-02] MEDS ORDERED: VIBRAMYCIN50 MG PO (10:40)
== END 2017-12-02 12:23 | disposition home or self-care (01) | DRG 863 ==
LOC: D.SDCHOLD 12:05 → D.MS 12:05 → D.SDCHOLD 12:05 → OBSVTIME 12:50 → D.MS 12:59
PROVIDERS: Surgery
DX: T81.4XXA Infection following a procedure, initial encounter (principal); T81.30XA Disruption of wound, unspecified, initial encounter; R41.82 Altered mental status, unspecified; R55 Syncope and collapse; E87.70 Fluid overload, unspecified

== ENCOUNTER → 2018-01-09 14:30 | Outpatient (CLI) | payer MEDICAID ==
[2017-11-28 13:42] VITALS: BMI 52.5
[~2018-01-09 14:30] MED LIST changes: +IPRAT-ALBUT 0.5-3 ML UPD; +VIBRAMYCIN50 MG PO
== END | disposition home or self-care (01) ==
LOC: D.US 14:30
DX: R60.0 Localized edema (principal); M79.605 Pain in left leg; M79.604 Pain in right leg

== ENCOUNTER → 2018-01-11 12:55 | Outpatient (CLI) | payer MEDICAID ==
[2017-11-28 13:42] VITALS: BMI 52.5
== END | disposition home or self-care (01) ==
LOC: D.ECHO 12:55
DX: R06.09 Other forms of dyspnea (principal)

== ENCOUNTER → 2018-04-06 12:16 | Outpatient (CLI) | payer MEDICAID ==
[2017-11-28 13:42] VITALS: BMI 52.5
== END | disposition home or self-care (01) ==
LOC: D.MRI 12:16
DX: M54.16 Radiculopathy, lumbar region (principal)

== ENCOUNTER → 2018-06-09 10:08 | Outpatient (CLI) | payer MEDICAID ==
[2017-11-28 13:42] VITALS: BMI 52.5
[2018-06-09 11:05] LABS: BASOPHILS 0.3 % (0-2); EOSINOPHILS 1.4 % (0-7); HEMATOCRIT 38.7 % (36.0-48.0); HEMOGLOBIN 12.9 g/dL (12-16); MCH 29.5 pg (26.0-34.0); MCHC 33.3 g/dL (31.0-37.0); MCV 88.6 fL (80.0-100.0); MEAN PLATELET VOLUME 9.7 fL (7.4-10.4); MONOCYTES 7.9 % (2-11); NEUTROPHILS 52.4 % (40-80); PLATELET COUNT 253 10x3/uL (130-400); RBC 4.37 10x6/uL (4.00-5.40); RDW 16.3 % (11.5-14.5); WBC 8.8 10x3/uL (4.8-10.8)
[2018-06-09 11:22] LABS: % SATURATION 14 % (15-55); IRON 57 ug/dl (35-150); TOTAL IRON BIND CAPACITY 384 ug/dl (260-445); UNSAT IRON BIND CAPACITY 327 ug/dl (150-375)
[2018-06-09 11:31] LABS: INR 0.92 (0.85-1.17); PROTIME 11.9 SECONDS (11.6-15.0)
[2018-06-09 11:32] LABS: APTT 26.5 SECONDS (22.8-39.4)
[2018-06-09 11:33] LABS: ALBUMIN 3.3 g/dL (3.4-5.0); ANION GAP 11.5 mmol/L (8-16); BILIRUBIN - DIRECT 0.07 mg/dL (0.00-0.30); BILIRUBIN - INDIRECT 0.24 mg/dL (0.00-1.00); BILIRUBIN - TOTAL 0.31 mg/dL (0.2-1.3); CALCIUM 8.6 mg/dL (8.5-10.1); CARBON DIOXIDE 25.2 mmol/L (21.0-32.0); CHOL - HDL RATIO 5.6 ratio (2.3-4.1); CREATININE - SERUM 0.9 mg/dL (0.6-1.3); LDL-HDL RATIO 3.8 ratio (1.5-3.5); POTASSIUM - SERUM 3.7 mmol/L (3.5-5.1); PROTEIN - SERUM 7.2 g/dL (6.4-8.2)
[2018-06-10 08:19] LABS: FOLATE (FOLIC ACID) - SERUM 6.1 ng/mL (>3.0); HAPTOGLOBIN 207 mg/dL (34-200)
[2018-06-10 13:11] LABS: ALPHA FETOPROTEIN -(TUMOR MRK) 1.6 ng/mL (0.0-8.3)
[2018-06-10 17:08] LABS: HEPATITIS C ANTIBODY <0.1 (0.0-0.9)
[2018-06-11 14:09] LABS: MITOCHONDRIAL ANTIBODY 4.8 Units (0.0-20.0); SMOOTH MUSCLE ABS (ACTIN) 24 Units (0-19)
[2018-06-13 09:18] LABS: ANA REFLEX - DIRECT Negative (Negative)
== END | disposition home or self-care (01) ==
LOC: D.LAB 06-07 16:30
PROVIDERS: Internal Medicine Gastroenterology
DX: R19.7 Diarrhea, unspecified (principal); K57.90 Diverticulosis of intestine, part unspecified, without perforation or abscess without bleeding; K92.1 Melena; R79.89 Other specified abnormal findings of blood chemistry

== ENCOUNTER 2018-07-25 10:58 | Day surgery (SDC) | payer MEDICAID ==
[~2018-07-25] VITALS: Ht 149.9 cm; Wt 118.6 kg
--- NOTE | ~2018-07-25 | OP ---
PATIENT NAME: BEREKET ROMANO MEDICAL RECORD: [id number] :76 LOCATION:[facility] ADMISSION DATE: SURGEON: AMY SHEPPARD MD DATE OF OPERATION: 07/25/2018 PROCEDURE: EGD with biopsy. EGD with balloon dilatation of distal esophageal stricture. INDICATION FOR THE PROCEDURE: The patient with epigastric discomfort, dysphagia, and gastroesophageal reflux disease. MEDICATION: Per TIVA anesthesia. The patient received 300 mg of propofol for this procedure, O2 at 4 liters. FINDINGS: Informed consent was given. The patient was made comfortable with the above medications. After reaching an adequate level of sedation by slow IV push, the patient was placed on her left side. The endoscope was then advanced under direct visualization through the posterior pharyngeal area and advanced to the distal esophagus. A stenotic Schatzki's ring was appreciated and a CRE Microvasive balloon was placed in this area, inflated to 60-Belgian, held in place for one minute without complication. The balloon was then withdrawn. The patient had marked inflammation, erythema, and edema as well as erosions in the distal esophageal area. Multiple biopsies were obtained. We then advanced the scope into the stomach, where only mild inflammation was seen throughout. Biopsy was taken at the antral area looking for the presence of Helicobacter pylori and also looking for any histopathology which might be present. The duodenal bulb to the second portion had mild inflammation present. Biopsies were obtained. The scope was then withdrawn. IMPRESSION: 1. Distal esophageal Schatzki's ring, dilated to 60-Belgian without complication. 2. Distal esophageal erosions. 3. Mild gastritis, biopsy taken at the antral area. 4. Mild duodenitis, biopsied. PLAN: 1. The patient will be asked to follow reflux precautions stringently, both dietary and positional. No chocolate, tomato, citrus, caffeine, fatty food, peppermint. Not to eat late at night and sit up for a couple hours after every meal. 2. Caution with anti-inflammatory drugs. 3. We will prescribe omeprazole 20 mg p.o. q.a.m. and famotidine 40 mg p.o. at bedtime. We will also ask the patient to take sucralfate 1 gram p.o. q.i.d. for at least one month, and if she is then feeling better, she can stop this particular medication. TRANSINT:[id number] Voice Confirmation ID: [id number] DOCUMENT ID: [id number] OPERATIVE REPORT [id number] BEREKET ROMANO BRENDA MD at 1304 CC: JESSICA RICCI MD, KRISTA MONSON M.D. and CHANTALE TRIVEDI [id number] DICTATION DATE: 07/25/18 1510 INSTRUMENT ASSEMBLY SUPERVISOR: 07/25/18 1621 [facility] SDC 07/25/18 [place] [id number]
[2018-07-25 11:27] LABS: HEMATOCRIT 40.5 % (36.0-48.0); HEMOGLOBIN 13.6 g/dL (12-16); MCH 30.4 pg (26.0-34.0); MCHC 33.6 g/dL (31.0-37.0); MCV 90.4 fL (80.0-100.0); MEAN PLATELET VOLUME 9.5 fL (7.4-10.4); RBC 4.48 10x6/uL (4.00-5.40); RDW 15.7 % (11.5-14.5); WBC 9.8 10x3/uL (4.8-10.8)
[2018-07-25 13:01] VITALS: BP 134/88; Ht 149.9 cm; Wt 118.6 kg
== END 2018-07-25 15:53 | disposition home or self-care (01) ==
LOC: D.OPS 10:58
PROVIDERS: Anesthesiology
DX: K22.2 Esophageal obstruction (principal); K22.70 Barrett's esophagus without dysplasia; K21.9 Gastro-esophageal reflux disease without esophagitis; K22.10 Ulcer of esophagus without bleeding; K29.50 Unspecified chronic gastritis without bleeding; K29.80 Duodenitis without bleeding; Z01.812 Encounter for preprocedural laboratory examination

== ENCOUNTER 2018-08-15 13:17 | Day surgery (SDC) | payer MEDICAID ==
[~2018-08-15] VITALS: Ht 149.9 cm; Wt 119.1 kg
--- NOTE | ~2018-08-15 | OP ---
PATIENT NAME: BEREKET ROMANO MEDICAL RECORD: [id number] :76 LOCATION:D.OPS ADMISSION DATE: SURGEON: AMY SHEPPARD MD DATE OF OPERATION: 08/15/2018 PROCEDURE: Colonoscopy, no biopsy, no polypectomy. SCOPE: An Olympus video colonoscope. MEDICATIONS: Per TIVA. The patient received 450 mg of propofol for this procedure, O2 4 liters. INDICATION FOR THE PROCEDURE: History of colon polyps, diarrhea, diverticulosis, melenic stool. FINDINGS: Informed consent was given. The patient was made comfortable with the above medications. After reaching an adequate level of sedation by slow IV push, the patient was placed on her left side. The rectal exam revealed good sphincter tone. No fissures or fistulas were appreciated. No external skin tags were seen. The colonoscope was advanced to the cecum where the ileocecal valve and appendiceal orifice were identified. Unfortunately, the prep was extremely poor throughout the entire colon and for this reason, polyps certainly could have been missed during our inspection. On withdrawal of the scope, the patient was noted to have very mild left-sided diverticulosis without diverticulitis. Additionally, she had spasm associated with irritable bowel syndrome. On retroflexion and final withdrawal of the scope, internal hemorrhoids were seen. No inflammation was appreciated throughout the colon. Stool; however, was collected for parasites, viruses, and bacteria. IMPRESSION: 1. Extremely poor prep adding to the difficulty of this procedure. We were unable to adequately visualize all of the colon mucosa as was intended. 2. Very mild left-sided diverticulosis without diverticulitis. 3. Spasm associated with irritable bowel syndrome, diarrhea predominant. 4. Internal hemorrhoids. PLAN: 1. Check the results of the xTAG. 2. High fiber diet. 3. Caution with anti-inflammatory drugs. 4. Xkfk-ksd-milomao Imodium p.r.n., no more than 8 a day. 5. No caffeine. TRANSINT:[id number] Voice Confirmation ID: [id number] DOCUMENT ID: [id number] AMY SHEPPARD MD at 1304 CC: JESSICA RICCI MD, KRISTA MONSON M.D. and CHANTALE TRIVEDI [id number] DICTATION DATE: 08/15/18 8648 EMAIL DEPLOYMENT SPECIALIST: 08/15/18 1606 [facility] SDC 08/15/18 [facility] [address] [place] [address]
[2018-08-15 13:59] LABS: HEMATOCRIT 41.2 % (36.0-48.0); HEMOGLOBIN 13.5 g/dL (12-16); MCH 30.1 pg (26.0-34.0); MCHC 32.8 g/dL (31.0-37.0); MEAN PLATELET VOLUME 9.7 fL (7.4-10.4); PLATELET COUNT 272 10x3/uL (130-400); RBC 4.48 10x6/uL (4.00-5.40); RDW 15.1 % (11.5-14.5); WBC 8.8 10x3/uL (4.8-10.8)
[2018-08-15 14:03] LABS: LYMPHOCYTES 10 % (15-50); NEUTROPHILS 82 % (40-80); PLATELET ESTIMATE NORMAL; PLATELET MORPHOLOGY NORMAL PLT MORPH
[2018-08-15 14:04] LABS: BASOPHILS 0 % (0-2); EOSINOPHILS 0 % (0-7); MONOCYTES 8 % (2-11)
[2018-08-15 14:19] LABS: ANION GAP 16.2 mmol/L (8-16); CALCIUM 9.4 mg/dL (8.5-10.1); CARBON DIOXIDE 26.6 mmol/L (21.0-32.0); POTASSIUM - SERUM 3.8 mmol/L (3.5-5.1)
[2018-08-15] MEDS ORDERED: SEROQUEL300 MG PO (14:47)
[2018-08-15 14:59] VITALS: BP 148/84; Ht 149.9 cm; Wt 119.1 kg
[2018-08-17 11:40] LABS: BILIRUBIN - DIRECT 0.13 mg/dL (0.00-0.30); BILIRUBIN - INDIRECT 0.4 mg/dL (0.00-1.00); BILIRUBIN - TOTAL 0.53 mg/dL (0.2-1.3); PROTEIN - SERUM 7.4 g/dL (6.4-8.2)
== END 2018-08-15 17:00 | disposition home or self-care (01) ==
LOC: D.OPS 13:17
PROVIDERS: Anesthesiology; Internal Medicine Gastroenterology
DX: K57.90 Diverticulosis of intestine, part unspecified, without perforation or abscess without bleeding (principal); Z09 Encounter for follow-up examination after completed treatment for conditions other than malignant neoplasm; Z87.19 Personal history of other diseases of the digestive system

== ENCOUNTER → 2018-09-21 12:02 | Outpatient (CLI) | payer MEDICAID ==
[2018-08-15 14:59] VITALS: BMI 53.0
[~2018-09-21 12:02] MED LIST changes: +SEROQUEL300 MG PO
== END | disposition home or self-care (01) ==
LOC: D.RAD 08-29 13:00
DX: R13.10 Dysphagia, unspecified (principal)

== ENCOUNTER → 2018-09-22 09:40 | Outpatient (CLI) | payer MEDICAID ==
[2018-08-15 14:59] VITALS: BMI 53.0
[2018-09-22 10:52] LABS: ALBUMIN 3.6 g/dL (3.4-5.0); BILIRUBIN - DIRECT 0.12 mg/dL (0.00-0.30); BILIRUBIN - INDIRECT 0.28 mg/dL (0.00-1.00); BILIRUBIN - TOTAL 0.4 mg/dL (0.2-1.3)
== END | disposition home or self-care (01) ==
LOC: D.US 09:40
PROVIDERS: Internal Medicine Gastroenterology
DX: K76.0 Fatty (change of) liver, not elsewhere classified (principal)

== ENCOUNTER → 2018-10-03 08:30 | Outpatient (CLI) | payer MEDICAID ==
[2018-08-15 14:59] VITALS: BMI 53.0
== END ==
LOC: D.US 08:30
DX: K76.0 Fatty (change of) liver, not elsewhere classified (principal)

== ENCOUNTER 2018-10-17 08:02 | Emergency (ER) | payer MEDICAID ==
[~2018-10-17] VITALS: Ht 149.9 cm; Wt 122.7 kg
[2018-10-17 08:08] VITALS: Ht 149.9 cm; Wt 122.7 kg
[2018-10-17 08:57] VITALS: BP 128/62
== END 2018-10-17 08:58 | disposition home or self-care (01) ==
LOC: D.ER 08:02
DX: S63.501A Unspecified sprain of right wrist, initial encounter (principal); W18.30XA Fall on same level, unspecified, initial encounter; Y93.89 Activity, other specified; Y92.019 Unspecified place in single-family (private) house as the place of occurrence of the external cause

== ENCOUNTER 2018-11-03 17:04 | Emergency (ER) | payer MEDICAID ==
[~2018-11-03] VITALS: Ht 149.9 cm; Wt 117.7 kg
[2018-11-03 17:26] VITALS: Ht 149.9 cm; Wt 117.7 kg
[2018-11-03] MEDS ORDERED: ZIAC 10-6.25 MG1 TAB PO (17:30)
[2018-11-03 18:01] LABS: BASOPHILS 0.3 % (0-2); HEMATOCRIT 41.9 % (36.0-48.0); HEMOGLOBIN 14.6 g/dL (12-16); IMMATURE GRANULOCYTES 0.9 % (0-5); LYMPHOCYTES 39.1 % (15-50); MCH 30.1 pg (26.0-34.0); MCHC 34.8 g/dL (31.0-37.0); MCV 86.4 fL (80.0-100.0); MEAN PLATELET VOLUME 10.5 fL (7.4-10.4); MONOCYTES 7.3 % (2-11); NEUTROPHILS 51.4 % (40-80); RBC 4.85 10x6/uL (4.00-5.40); RDW 14.8 % (11.5-14.5); WBC 11.5 10x3/uL (4.8-10.8)
[2018-11-03 18:02] LABS: PLATELET COUNT 343 10x3/uL (130-400)
[2018-11-03 19:05] LABS: APPEARANCE CLEAR (CLEAR); BILIRUBIN NEGATIVE (NEGATIVE); COLOR YELLOW (YELLOW); GLUCOSE 1000 mg/dL (NEGATIVE); KETONE MODERATE mg/dL (NEGATIVE); NITRITE NEGATIVE (NEGATIVE); PROTEIN TRACE mg/dL (NEGATIVE); SPECIFIC GRAVITY 1.025 (1.005-1.020); UROBILINOGEN NORMAL (NORMAL)
[2018-11-03 19:47] LABS: ALBUMIN 3.9 g/dL (3.4-5.0); ALKALINE PHOSPHATASE 163 U/L (46-116); ALT (SGPT) 101 U/L (10-68); CALC OSMOLALITY 283 mosm/kg (275-300); CARBON DIOXIDE 23.9 mmol/L (21.0-32.0); CHLORIDE - SERUM 93 mmol/L (98-107); LIPASE 145 U/L (73-393); MAGNESIUM - SERUM 1.6 mg/dL (1.8-2.4); POTASSIUM - SERUM 3.6 mmol/L (3.5-5.1); PROTEIN - SERUM 8.5 g/dL (6.4-8.2); SODIUM 132 mmol/L (136-145); UREA NITROGEN 14 mg/dL (7-18); eGFR NON AFRICAN AMERICAN 65 mL/min (90-120)
[2018-11-03 20:00] LABS: GLUCOSE 415 mg/dL (74-106)
[2018-11-03 20:15] LABS: KETONE - SERUM SMALL mg/dL (NEGATIVE)
[2018-11-04 00:42] VITALS: BP 148/66
== END 2018-11-04 00:42 | disposition home or self-care (01) ==
LOC: D.ER 17:04
PROVIDERS: Family Medicine
DX: R73.9 Hyperglycemia, unspecified (principal); I10 Essential (primary) hypertension; J44.9 Chronic obstructive pulmonary disease, unspecified

== ENCOUNTER 2018-11-06 05:44 | Outpatient (CLI) | payer MEDICAID ==
[~2018-11-06] VITALS: Ht 149.9 cm; Wt 117.7 kg
[~2018-11-06 05:44] MED LIST changes: +ZIAC 10-6.25 MG1 TAB PO
[2018-11-06 06:17] LABS: BASOPHILS 0.5 % (0-2); EOSINOPHILS 1.1 % (0-7); HEMATOCRIT 40.2 % (36.0-48.0); HEMOGLOBIN 13.4 g/dL (12-16); IMMATURE GRANULOCYTES 1.8 % (0-5); LYMPHOCYTES 42.9 % (15-50); MCH 29.5 pg (26.0-34.0); MCHC 33.3 g/dL (31.0-37.0); MCV 88.4 fL (80.0-100.0); MEAN PLATELET VOLUME 10.3 fL (7.4-10.4); MONOCYTES 5.8 % (2-11); NEUTROPHILS 47.9 % (40-80); RBC 4.55 10x6/uL (4.00-5.40); WBC 6.2 10x3/uL (4.8-10.8)
[2018-11-06] MEDS ORDERED: GLUCOPHAGE500 MG PO (06:27)
[2018-11-06 06:31] VITALS: BP 144/94; Ht 149.9 cm; Wt 117.7 kg
[2018-11-06 06:32] LABS: ANION GAP 15.9 mmol/L (8-16); CALCIUM 9.5 mg/dL (8.5-10.1); CARBON DIOXIDE 22.9 mmol/L (21.0-32.0); POTASSIUM - SERUM 3.8 mmol/L (3.5-5.1)
[2018-11-06 06:33] LABS: APTT 29.3 SECONDS (22.8-39.4); INR 1.02 (0.85-1.17); PROTIME 12.9 SECONDS (11.6-15.0)
[2018-11-06 06:52] LABS: PLATELET COUNT 269 10x3/uL (130-400)
--- NOTE | 2018-11-06 09:25 | NUR ---
PT REC'D TO ROOM VIA STRETCHER FROM IR. AWAKE, ALERT, ORIENTED. DRESSING TO RUQ C/D/I. ICE WATER PROVIDED.
--- NOTE | 2018-11-06 09:50 | NUR ---
FSBS 296. CALL TO DANIEL HUTTON APN AT PT'S PCP. ADVISED TO HAVE PT INCREASE METFORMIN TO BID AND F/U ON TUESDAY.
--- NOTE | 2018-11-06 10:27 | NUR ---
SEE FREQUENT VSS FOR LIST OF VITAL SIGNS.
--- NOTE | 2018-11-06 10:27 | NUR ---
PT TOLERATED ADA DIET. VOIDED ON BEDPAN.
--- NOTE | 2018-11-06 10:33 | NUR ---
C/O PAIN AT BIOPSY SITE. SEE EMAR.
--- NOTE | 2018-11-06 11:01 | NUR ---
RESTING EASILY. ADVISED WILL BE ABLE TO DISCHARGE AT 1315 IF DOING WELL.
--- NOTE | 2018-11-06 11:11 | NUR ---
DRESSING REMAIN C/D/I. NO NEEDS.
--- NOTE | 2018-11-06 12:33 | NUR ---
PT UP TO BR TO VOID.
--- NOTE | 2018-11-06 13:19 | NUR ---
IV D/C'D CATH INTACT.
--- NOTE | 2018-11-06 13:30 | NUR ---
D/C INSTRUCTIONS EXPLAINED TO PT. VOICED UNDERSTANDING. COPIES OF ALL GTIVEN. D/C'D HOME VIA W/C TO PRIVATE CAR.
== END 2018-11-06 13:40 | disposition home or self-care (01) ==
LOC: D.SP 05:44 → D.CT 08:00 → D.SP 13:40
PROVIDERS: General Practice
DX: K76.0 Fatty (change of) liver, not elsewhere classified (principal); K74.0 Hepatic fibrosis; Z01.812 Encounter for preprocedural laboratory examination

== ENCOUNTER → 2019-03-01 07:36 | Outpatient (CLI) | payer MEDICAID ==
[2018-11-06 06:31] VITALS: BMI 52.4
[~2019-03-01 07:36] MED LIST changes: +GLUCOPHAGE500 MG PO
== END | disposition home or self-care (01) ==
LOC: D.CT 07:36
PROVIDERS: ATTEND Surgery
DX: R10.84 Generalized abdominal pain (principal); R10.31 Right lower quadrant pain; R11.2 Nausea with vomiting, unspecified

== ENCOUNTER 2019-06-14 17:21 | Emergency (ER) | payer MEDICAID ==
[~2019-06-14] VITALS: Ht 149.9 cm; Wt 105.9 kg
[2019-06-14 17:43] VITALS: Ht 149.9 cm; Wt 105.9 kg
[2019-06-14] MEDS ORDERED: LANTUS SOL100 UNIT/1 SC (17:51)
[2019-06-14] MEDS ORDERED: NOVOLOG100 UNIT/1 SC (17:51)
[2019-06-14 18:21] LABS: BASOPHILS 0.6 % (0-2); EOSINOPHILS 1.5 % (0-7); HEMATOCRIT 39.7 % (36.0-48.0); HEMOGLOBIN 13.8 g/dL (12-16); IMMATURE GRANULOCYTES 0.7 % (0-5); LYMPHOCYTES 42.1 % (15-50); MCH 29.5 pg (26.0-34.0); MCHC 34.8 g/dL (31.0-37.0); MCV 84.8 fL (80.0-100.0); MEAN PLATELET VOLUME 10.3 fL (7.4-10.4); NEUTROPHILS 50.1 % (40-80); PLATELET COUNT 239 10x3/uL (130-400); RBC 4.68 10x6/uL (4.00-5.40); RDW 13.6 % (11.5-14.5); WBC 8.2 10x3/uL (4.8-10.8)
[2019-06-14 18:35] LABS: ALBUMIN 3.6 g/dL (3.4-5.0); ALKALINE PHOSPHATASE 168 U/L (46-116); ALT (SGPT) 192 U/L (10-68); BILIRUBIN - TOTAL 0.42 mg/dL (0.2-1.3); CALC OSMOLALITY 284 mosm/kg (275-300); CALCIUM 9.3 mg/dL (8.5-10.1); CARBON DIOXIDE 26.4 mmol/L (21.0-32.0); CHLORIDE - SERUM 99 mmol/L (98-107); GLUCOSE 350 mg/dL (74-106); MAGNESIUM - SERUM 1.6 mg/dL (1.8-2.4); POTASSIUM - SERUM 3.7 mmol/L (3.5-5.1); PROTEIN - SERUM 7.6 g/dL (6.4-8.2); SODIUM 135 mmol/L (136-145); UREA NITROGEN 14 mg/dL (7-18); eGFR NON AFRICAN AMERICAN 65 mL/min (90-120)
[2019-06-14 18:46] LABS: KETONE - SERUM NEGATIVE (NEGATIVE)
[2019-06-14 19:35] LABS: APPEARANCE CLEAR (CLEAR); BILIRUBIN NEGATIVE (NEGATIVE); COLOR STRAW (YELLOW); GLUCOSE 1000 mg/dL (NEGATIVE); KETONE NEGATIVE (NEGATIVE); NITRITE NEGATIVE (NEGATIVE); PROTEIN NEGATIVE (NEGATIVE); UROBILINOGEN NORMAL (NORMAL)
[2019-06-14 19:36] LABS: RED CELLS - URINE RARE /hpf (0-5); WHITE CELLS - URINE 0-5 /hpf (0-5)
[2019-06-14 19:37] LABS: BACTERIA FEW /hpf (NONE SEEN); EPITHELIAL CELLS 0-5 /hpf (0-5)
[2019-06-14 23:03] VITALS: BP 145/97
== END 2019-06-14 23:03 | disposition home or self-care (01) ==
LOC: D.ER 17:21
PROVIDERS: Family Medicine
DX: E11.65 Type 2 diabetes mellitus with hyperglycemia (principal); Z79.4 Long term (current) use of insulin

== ENCOUNTER → 2019-06-19 12:21 | Outpatient (CLI) | payer MEDICAID ==
[2019-06-14 17:43] VITALS: BMI 47.2
[~2019-06-19 12:21] MED LIST changes: +CARAFATE1 G PO; +LANTUS SOL100 UNIT/1 SC; +NOVOLOG100 UNIT/1 SC
== END | disposition home or self-care (01) ==
LOC: D.HCCARDIO 12:21
PROVIDERS: ATTEND Internal Medicine Cardiovascular Disease
DX: I20.9 Angina pectoris, unspecified (principal); I10 Essential (primary) hypertension

== ENCOUNTER 2019-07-30 18:01 | Inpatient (IN) | payer MEDICAID ==
[~2019-07-30] VITALS: Ht 149.9 cm; Wt 100.0 kg
[~2019-07-30 18:01] MED LIST changes: -CARAFATE1 G PO
[2019-07-30] MEDS ORDERED: CARAFATE1 G PO (18:35)
[2019-07-30 18:59] LABS: BASOPHILS 0.5 % (0-2); EOSINOPHILS 1.5 % (0-7); HEMATOCRIT 46.1 % (36.0-48.0); HEMOGLOBIN 15.6 g/dL (12-16); IMMATURE GRANULOCYTES 0.4 % (0-5); LYMPHOCYTES 35.8 % (15-50); MCH 29.4 pg (26.0-34.0); MCHC 33.8 g/dL (31.0-37.0); MEAN PLATELET VOLUME 10.4 fL (7.4-10.4); MONOCYTES 6.7 % (2-11); NEUTROPHILS 55.1 % (40-80); RDW 13.3 % (11.5-14.5); WBC 10.4 10x3/uL (4.8-10.8)
[2019-07-30 19:02] LABS: PLATELET COUNT 316 10x3/uL (130-400)
--- NOTE | 2019-07-30 19:03 | NUR ---
BS REPORT TO SIRISHA BURGESS
[2019-07-30 19:07] LABS: APPEARANCE CLEAR (CLEAR); COLOR YELLOW (YELLOW); NITRITE NEGATIVE (NEGATIVE); PROTEIN NEGATIVE (NEGATIVE)
[2019-07-30 19:08] LABS: BILIRUBIN NEGATIVE (NEGATIVE); GLUCOSE 1000 mg/dL (NEGATIVE); KETONE SMALL mg/dL (NEGATIVE); UROBILINOGEN NORMAL (NORMAL)
[2019-07-30 19:16] LABS: ALBUMIN 4.5 g/dL (3.4-5.0); ANION GAP 18.1 mmol/L (8-16); BILIRUBIN - TOTAL 1.21 mg/dL (0.2-1.3); CALCIUM 9.7 mg/dL (8.5-10.1); CARBON DIOXIDE 24.8 mmol/L (21.0-32.0); CREATININE - SERUM 1.3 mg/dL (0.6-1.3); POTASSIUM - SERUM 3.9 mmol/L (3.5-5.1); PROTEIN - SERUM 8.9 g/dL (6.4-8.2)
[2019-07-30 19:45] LABS: KETONE - SERUM NEGATIVE (NEGATIVE)
[2019-07-30 19:53] LABS: LIPASE 85 U/L (73-393)
--- NOTE | 2019-07-30 20:10 | NUR ---
PT LEFT ED VIA STRETCHER FOR CT.
--- NOTE | 2019-07-30 20:22 | NUR ---
PT RETURNED FROM CT VIA STRETCHER.
--- NOTE | 2019-07-30 21:30 | NUR ---
FSBS 402
[2019-07-31 00:46] LABS: CALCIUM 8.4 mg/dL (8.5-10.1); CARBON DIOXIDE 27.6 mmol/L (21.0-32.0); CHLORIDE - SERUM 97 mmol/L (98-107); POTASSIUM - SERUM 3.5 mmol/L (3.5-5.1); SODIUM 136 mmol/L (136-145); UREA NITROGEN 7 mg/dL (7-18); eGFR NON AFRICAN AMERICAN 84 mL/min (90-120)
[2019-07-31 00:51] LABS: CALC OSMOLALITY 285 mosm/kg (275-300); CREATININE - SERUM 0.8 mg/dL (0.6-1.3); GLUCOSE 387 mg/dL (74-106); KETONE - SERUM SMALL mg/dL (NEGATIVE)
[2019-07-31 02:14] VITALS: BP 177/95; BMI 44.6
[2019-07-31 04:30] VITALS: BP 152/81
[2019-07-31 06:23] LABS: BASOPHILS 0.7 % (0-2); EOSINOPHILS 2.9 % (0-7); HEMATOCRIT 39.6 % (36.0-48.0); HEMOGLOBIN 13.3 g/dL (12-16); IMMATURE GRANULOCYTES 0.1 % (0-5); LYMPHOCYTES 44.4 % (15-50); MCH 28.5 pg (26.0-34.0); MCHC 33.6 g/dL (31.0-37.0); MEAN PLATELET VOLUME 10.3 fL (7.4-10.4); MONOCYTES 6.5 % (2-11); NEUTROPHILS 45.4 % (40-80); PLATELET COUNT 276 10x3/uL (130-400); RBC 4.67 10x6/uL (4.00-5.40); RDW 13.2 % (11.5-14.5)
[2019-07-31 06:39] LABS: MCV 84.8 fL (80.0-100.0); WBC 6.8 10x3/uL (4.8-10.8)
[2019-07-31 06:43] LABS: APTT 28.3 SECONDS (22.8-39.4); INR 1.1 (0.85-1.17); PROTIME 13.7 SECONDS (11.6-15.0)
[2019-07-31 07:07] LABS: ALBUMIN 3.5 g/dL (3.4-5.0); ALKALINE PHOSPHATASE 208 U/L (46-116); ALT (SGPT) 98 U/L (10-68); BILIRUBIN - TOTAL 0.84 mg/dL (0.2-1.3); CALC OSMOLALITY 280 mosm/kg (275-300); CALCIUM 8.3 mg/dL (8.5-10.1); CARBON DIOXIDE 26.4 mmol/L (21.0-32.0); CHLORIDE - SERUM 100 mmol/L (98-107); CREATININE - SERUM 0.7 mg/dL (0.6-1.3); MAGNESIUM - SERUM 1.9 mg/dL (1.8-2.4); PHOSPHOROUS 2.9 mg/dL (2.5-4.9); PROTEIN - SERUM 7.1 g/dL (6.4-8.2); SODIUM 137 mmol/L (136-145); UREA NITROGEN 6 mg/dL (7-18); eGFR NON AFRICAN AMERICAN > 90 mL/min (90-120)
[2019-07-31 07:09] LABS: GLUCOSE 263 mg/dL (74-106)
--- NOTE | 2019-07-31 08:00 | NUR ---
PT LAYING IN BED. RR EVEN AND UNLABORED. PT STATES 9/10 PAIN IN AMBDOMEN. WILL RECIEVE CARAFATE IN AM MEDICATIONS. DENIES FURTHER NEEDS AT THIS TIME. WILL CONTINUE TO MONITOR.
[2019-07-31 10:52] VITALS: BP 101/70
--- NOTE | 2019-07-31 11:57 | NUR ---
I have reviewed this patient and I concur with the Shift Assessment completed by the Licensed Practical Nurse today this shift.
[2019-07-31 12:00] LABS: CALC OSMOLALITY 283 mosm/kg (275-300); CALCIUM 8.3 mg/dL (8.5-10.1); CARBON DIOXIDE 26.5 mmol/L (21.0-32.0); CHLORIDE - SERUM 101 mmol/L (98-107); CREATININE - SERUM 0.7 mg/dL (0.6-1.3); GLUCOSE 327 mg/dL (74-106); POTASSIUM - SERUM 3.8 mmol/L (3.5-5.1); SODIUM 137 mmol/L (136-145); UREA NITROGEN 5 mg/dL (7-18); eGFR NON AFRICAN AMERICAN > 90 mL/min (90-120)
[2019-07-31 12:53] VITALS: Ht 149.9 cm; Wt 100.0 kg
[2019-07-31 13:48] VITALS: BP 114/76
[2019-07-31 16:10] VITALS: BP 127/75
[2019-07-31 20:00] VITALS: BP 109/57
[2019-08-01] VITALS: BP 117/80
[2019-08-01 04:00] VITALS: BP 172/87
[2019-08-01 07:06] LABS: HEMATOCRIT 39.1 % (36.0-48.0); HEMOGLOBIN 12.8 g/dL (12-16); MCH 28.5 pg (26.0-34.0); MCHC 32.7 g/dL (31.0-37.0); MEAN PLATELET VOLUME 10.7 fL (7.4-10.4); PLATELET COUNT 236 10x3/uL (130-400); RBC 4.49 10x6/uL (4.00-5.40); RDW 13.4 % (11.5-14.5)
[2019-08-01 07:29] LABS: KETONE - SERUM NEGATIVE (NEGATIVE)
--- NOTE | 2019-08-01 07:30 | NUR ---
A/A/OX4. RESTING IN BED IN SUPINE POSITION. DENIES ANY NEEDS AT THIS TIME. IV PATENT TO RIGHT HAND WITHOUT REDNESS OR EDEMA. ASSESSMENT COMPLETED AND WILL CONTINUE POC.
[2019-08-01 07:36] LABS: CALCIUM 8.5 mg/dL (8.5-10.1); CARBON DIOXIDE 26.5 mmol/L (21.0-32.0); CHLORIDE - SERUM 104 mmol/L (98-107); CREATININE - SERUM 0.7 mg/dL (0.6-1.3); MAGNESIUM - SERUM 1.7 mg/dL (1.8-2.4); PHOSPHOROUS 2.8 mg/dL (2.5-4.9); SODIUM 139 mmol/L (136-145); eGFR NON AFRICAN AMERICAN > 90 mL/min (90-120)
[2019-08-01 07:39] LABS: CALC OSMOLALITY 281 mosm/kg (275-300); GLUCOSE 233 mg/dL (74-106); POTASSIUM - SERUM 3.2 mmol/L (3.5-5.1); UREA NITROGEN 3 mg/dL (7-18)
[2019-08-01 07:46] LABS: MCV 87.1 fL (80.0-100.0)
[2019-08-01 09:04] LABS: EOSINOPHILS 2 % (0-7); LYMPHOCYTES 51 % (15-50); MONOCYTES 5 % (2-11); NEUTROPHILS 42 % (40-80); PLATELET ESTIMATE NORMAL
[2019-08-01 13:16] VITALS: BP 118/73
--- NOTE | 2019-08-01 14:13 | NUR ---
I have reviewed this patient and I concur with the Shift Assessment completed by the Licensed Practical Nurse today this shift.
--- NOTE | 2019-08-01 14:55 | MORECARE ---
CASE MANAGEMENT DISCHARGE SUMMARY PATIENT: BEREKET ROMANO UNIT: [id number] ADM DATE: 07/30/19 AGE: 38 : [birth year] SEX: F ROOM/BED: D.2104 AUTHOR: CHASE RAZO PHYSICIAN: REFERRING PHYSICIAN: COREY OLIVER MD DATE OF SERVICE: 08/01/19 Discharge Plan Patient Name: BEREKET ROMANO [facility] [facility] 1980 Planned Disposition: Home Anticipated Discharge Date: Discharge Date: Expected LOS: Initial Reviewer: [email or web address] Initial Review Date: 08/01/2019 Generated: 08/01/19 3:55 pm Patient Name: BEREKET ROMANO Page [id number] at 1455 All edits/amendments must be made on the electronic document DICTATION DATE: 08/01/195 VENETIAN BLIND INSTALLER: ANJUM 08/01/19 1455 RPT#: [id number] DC DATE: STATUS: ADM IN [facility] [address] [place] [address] END OF REPORT
[2019-08-01] MEDS ORDERED: PROTONIX40 MG PO (14:56)
--- NOTE | 2019-08-01 15:04 | MORECARE ---
CASE MANAGEMENT DISCHARGE SUMMARY PATIENT: BEREKET ROMANO UNIT: [id number] ADM DATE: 07/30/19 AGE: 38 : 78 SEX: F ROOM/BED: D.2104 AUTHOR: CHASE RAZO PHYSICIAN: REFERRING PHYSICIAN: COREY OLIVER MD DATE OF SERVICE: 08/01/19 Discharge Plan Patient Name: BEREKET ROMANO Facility: [facility]:[place] : 1980 Planned Disposition: Home Anticipated Discharge Date: Discharge Date: Expected LOS: Initial Reviewer: [email or web address] Initial Review Date: 08/01/2019 Generated: 08/01/19 4:04 pm Comments DCP- Discharge Planning Updated by [email or web address]: Eden King on 08/01/19 1:[address] Patient Name: BEREKET ROMANO Admission Status: ER Accout number: [id number] Admission Date: 07-30-2019 : 1980 Admission Diagnosis: Attending: COREY OLIVER Current LOS: 2 Anticipated DC Date: Planned Disposition: Home Primary Insurance: [facility] Discharge Planning Comments: CM MET WITH PATIENT AFTER OBTAINING VERBAL CONSENT. STATES PLANS TO DISCHARGE TO HOME WITH CHILDREN. DISCUSSED NEED FOR HH, REHAB OR EQUIPMENT, PATIENT STATES NO NEEDS. CM TO FOLLOW AND ASSIST NEEDED. Dockworker: Eden King DCPIA - Discharge Planning Initial Assessment Updated by [email or web address]: Eden King on 08/01/19 2:55 pm * Is the patient Alert and Oriented? Yes * PCP [facility] * Pharmacy [facility] * Preadmission Environment Home with Family * ADLs Independent * Other Equipment CPAP, NEBS * List name and contact numbers for known caregivers / representatives who currently or will assist patient after discharge: LOU ARREOLA, * Community resources currently utilized None * Additional services required to return to the preadmission environment? No * Can the patient safely return to the preadmission environment? Yes * Has this patient been hospitalized within the prior 30 days at any hospital? No Last DP export: 08/01/19 1:55 p Patient Name: BEREKET ROMANO Page [id number] at 1504 All edits/amendments must be made on the electronic document DICTATION DATE: 08/01/191503 CASE MANAGER: ANJUM 08/01/19 150 RPT#: [id number] [place] DATE: STATUS: ADM IN [facility] [address] [place] [address] END OF REPORT
[2019-08-01 18:11] VITALS: BP 124/90
--- NOTE | 2019-08-01 18:17 | NUR ---
DISCHARGE INSTRUCTIONS REVIEWED WITH PT AND NO QUESTIONS. PT WAS VERY UPSET ABOUT BEING DISCHARGED WITHOUT SEEING HOW SHE WAS GOING TO DO WITH EATING SINCE SHE HAS ONLY BEEN ON LIQUIDS SINCE SHE CAME IN. CONTACTED DR. ANGELES AT HER REQUESTS AND HE STATED HE WOULD HAVE HIS OFFICE GET HER SET UP FOR AN EGD WITHIN THE NEXT WEEK. IV DC'D WITH CATH TIP INTACT. LEFT FLOOR VIA W/C WITH ALL PERSONAL BELONGINGS AND LEFT FACILITY VIA PRIVATE CAR WITH HER MOTHER AND DAUGHTER.
--- NOTE | 2019-08-02 06:36 | MORECARE ---
CASE MANAGEMENT DISCHARGE SUMMARY PATIENT: BEREKET ROMANO UNIT: [id number] ADM DATE: 07/30/19 AGE: 38 : 76 SEX: F ROOM/BED: D.2104 AUTHOR: CHASE RAZO PHYSICIAN: REFERRING PHYSICIAN: COREY OLIVER MD DATE OF SERVICE: 08/02/19 Discharge Plan Patient Name: BEREKET ROMANO Facility: [facility]:[place] : 1980 Planned Disposition: Home Anticipated Discharge Date: 08/01/19 Discharge Date: 08/01/2019 Expected LOS: 2 Initial Reviewer: [email or web address] Initial Review Date: 08/01/2019 Generated: 08/02/19 7:35 am Comments DCP- Discharge Planning Updated by [id number]: Eden King on 08/01/19 1:[address] Patient Name: BEREKET ROMANO Admission Status: ER Accout number: [id number] Admission Date: 07-30-2019 : 1980 Admission Diagnosis: Attending: COREY OLIVER Current LOS: 2 Anticipated DC Date: Planned Disposition: Home Primary Insurance: [facility] Discharge Planning Comments: CM MET WITH PATIENT AFTER OBTAINING VERBAL CONSENT. STATES PLANS TO DISCHARGE TO HOME WITH CHILDREN. DISCUSSED NEED FOR HH, REHAB OR EQUIPMENT, PATIENT STATES NO NEEDS. CM TO FOLLOW AND ASSIST NEEDED. Audiovisual Tech: Eden King DCPIA - Discharge Planning Initial Assessment Updated by [id number]: Eden King on 08/01/19 2:55 pm * Is the patient Alert and Oriented? Yes * PCP FAROOQ * Pharmacy [facility] * Preadmission Environment Home with Family * ADLs Independent * Other Equipment CPAP, NEBS * List name and contact numbers for known caregivers / representatives who currently or will assist patient after discharge: ELBA, MOM, * Community resources currently utilized None * Additional services required to return to the preadmission environment? No * Can the patient safely return to the preadmission environment? Yes * Has this patient been hospitalized within the prior 30 days at any hospital? No Last DP export: 08/01/19 2:04 p Patient Name: BEREKET ROMANO Page 14338 at 0636 All edits/amendments must be made on the electronic document DICTATION DATE: 08/02/19634 BELL PERSON: ANJUM 08/02/19634 RPT#: [id number] DC DATE:08/01/19 STATUS: DIS IN [facility] [address] [place] [address] END OF REPORT
== END 2019-08-01 18:20 | disposition home or self-care (01) | DRG 74 ==
LOC: D.ER 18:01 → D.M2 21:57 → D.SDCHOLD 07-31 12:47 → D.M2 08-01 13:08 → D.SDCHOLD 08-01 13:08 → D.M2 08-01 18:20
PROVIDERS: Emergency Medicine; Family Medicine; ADMIT Internal Medicine Nephrology; ATTEND Internal Medicine Nephrology
DX: E11.43 Type 2 diabetes mellitus with diabetic autonomic (poly)neuropathy (principal); E87.1 Hypo-osmolality and hyponatremia; Z68.41 Body mass index [BMI] 40.0-44.9, adult; N17.9 Acute kidney failure, unspecified; E11.65 Type 2 diabetes mellitus with hyperglycemia; E66.01 Morbid (severe) obesity due to excess calories; K72.10 Chronic hepatic failure without coma; J44.9 Chronic obstructive pulmonary disease, unspecified; F41.8 Other specified anxiety disorders; K21.9 Gastro-esophageal reflux disease without esophagitis; K76.0 Fatty (change of) liver, not elsewhere classified; K31.84 Gastroparesis; R63.4 Abnormal weight loss; Z87.891 Personal history of nicotine dependence

== ENCOUNTER 2020-02-07 05:56 | Day surgery (SDC) | payer MEDICAID ==
[~2020-02-07] VITALS: Ht 149.9 cm; Wt 100.7 kg
[~2020-02-07 05:56] MED LIST changes: +ATIVAN2 MG PO; +CARAFATE1 G PO; +CELEBREX 100 M100 MG PO; +HUMULIN R100 UNIT/1 SC; +LEVEMIR IN100 UNITS/ SC; +PEPCID40 MG PO; +PROTONIX40 MG PO; +SEROQUEL XR400 M1 PO; +XIFAXAN PO
[2020-02-07 06:44] LABS: HEMATOCRIT 43.1 % (36.0-48.0); HEMOGLOBIN 14.1 g/dL (12-16); MCH 28.4 pg (26.0-34.0); MCHC 32.7 g/dL (31.0-37.0); MCV 86.7 fL (80.0-100.0); MEAN PLATELET VOLUME 9.7 fL (7.4-10.4); RBC 4.97 10x6/uL (4.00-5.40); RDW 12.9 % (11.5-14.5); WBC 6.4 10x3/uL (4.8-10.8)
[2020-02-07 07:09] LABS: CALC OSMOLALITY 285 mosm/kg (275-300); CALCIUM 9.3 mg/dL (8.5-10.1); CARBON DIOXIDE 23.8 mmol/L (21.0-32.0); CHLORIDE - SERUM 99 mmol/L (98-107); CREATININE - SERUM 0.8 mg/dL (0.6-1.3); POTASSIUM - SERUM 3.2 mmol/L (3.5-5.1); SODIUM 136 mmol/L (136-145); UREA NITROGEN 7 mg/dL (7-18); eGFR NON AFRICAN AMERICAN 84 mL/min (90-120)
[2020-02-07 07:22] LABS: GLUCOSE 379 mg/dL (74-106)
[2020-02-07 07:44] VITALS: BP 133/86; Ht 149.9 cm; Wt 100.7 kg
--- NOTE | 2020-02-07 08:48 | NUR ---
0882-PHONED BLOOD SUGAR RESULTS (075) TO DR. HAMMER-NO NEW ORDERS RECEIVED.
[2020-02-07] MEDS ORDERED: HYDROCODON-ACE1 EA10 PO (10:44)
--- NOTE | 2020-02-07 11:12 | NUR ---
1106 - PT AWAKENING, OPA OUT
--- NOTE | 2020-02-07 12:59 | NUR ---
1238 PT ASKING TO HAVE HER BS CHECKED. BS IS 238. PT IS SELF MEDICATING WITH HER INSULIN BROUGHT FROM HOME AND USING HER SLIDING SCALE.
--- NOTE | 2020-02-07 14:17 | NUR ---
1340-ASSISTED TO RESTROOM. ABLE TO URINATE WITHOUT COMPLICATIONS. TOLERATED FULL LIQUID DIET. REMOVED IV WITH CATH INTACT,DISPOSED INTO SHAPRS. COVERED WITH GUAZE,SECURED WITH MEDIPORE TAPE. CARLIE DRAIN INTACT DRAINING SMALL AMOUNT OF BLOOD. DRESSING TO ABD CDI
--- NOTE | 2020-02-07 14:19 | NUR ---
1402-REVIEWED POST OPERATIVE INSTRUCTIONS,FOLLOW UP APPOINTMENT, AND DRAIN CARE. ISN'T PTS FIRST TIME TO HAVE A CARLIE DRAIN. KNOWLEDGABLE OF CARE. AWAITING FOR SISTER TO TRANSPORT HOME
--- NOTE | 2020-02-07 14:20 | NUR ---
1414-ESCORTED OUT VIA W/C WITH SISTER TO TRANSPORT HOME
--- NOTE | 2020-02-08 13:30 | OP ---
PATIENT NAME: BEREKET ROMANO MEDICAL RECORD: [id number] :76 LOCATION:[facility] ADMISSION DATE: SURGEON: OREN ANDERSEN MD DATE OF OPERATION: 02/07/2020 PREOPERATIVE DIAGNOSES: 1. Chronic lower abdominal pain. 2. Lower abdominal mass. 3. Morbid obesity. 4. Type 2 diabetes mellitus. POSTOPERATIVE DIAGNOSES: 1. Chronic lower abdominal pain. 2. Lower abdominal mass. 3. Morbid obesity. 4. Type 2 diabetes mellitus. PROCEDURE: Excision of 5 cm soft tissue mass in the lower abdomen. SURGEON: Oren Andersen MD REPORT OF PROCEDURE: The patient's abdomen was prepped and draped in sterile fashion. The patient had a previous lower midline incision, which was reopened and using electrocautery, we dissected through this tissue until we encountered this firm mass of fatty inflammatory tissue. There was no substance within this mass. The mass was at least 5 cm in size. This mass was adherent down to the anterior fascia of the lower abdomen. We came around this mass as much as possible until we encountered normal fatty tissue or the fascia. A portion of the fascia was actually removed with excision of this mass leaving a small opening into the abdominal cavity. Once the mass was completely removed, this opening was measured out and noted to be about a centimeter in size. This was reapproximated with interrupted 0 Prolenes times 4. At this point, we got the mass completely removed. The surrounding fatty tissue appeared to be soft. We irrigated out the wound with normal saline and assured there was no sign of any active bleeding. A 15-Chinese Fred drain was inserted through the right lower quadrant and placed into the subcutaneous pouch. This was sutured into place with a 3-0 nylon. The subcutaneous tissues were then all reapproximated with interrupted 3-0 Vicryls and some of these were used to affix the fatty tissue down to the fascia. We then infused a total of 20 mL of 0.25% Marcaine with epinephrine into the surrounding tissues and closed the skin incision with running subcutaneous 5-0 Monocryl. COMPLICATIONS: None. CONDITION: Stable. ANESTHESIA: General endotracheal and local. BLOOD LOSS: 30 mL. TRANSINT:[id number] Voice Confirmation ID: [id number] DOCUMENT ID: [id number] OPERATIVE REPORT [id number] BEREKET ROMANO OREN ANDERSEN MD at 1330 CC: BUSTER HUTTON [id number] DICTATION DATE: 02/07/20 1049 GUN NUMBER: 02/07/20 1120 [facility] 02/07/20 [place] [id number] [place] [address]
== END 2020-02-07 14:14 | disposition home or self-care (01) ==
LOC: D.OPS 05:56
PROVIDERS: Anesthesiology; ATTEND Surgery
DX: R10.30 Lower abdominal pain, unspecified (principal); G89.29 Other chronic pain; R19.03 Right lower quadrant abdominal swelling, mass and lump; E66.01 Morbid (severe) obesity due to excess calories; E11.9 Type 2 diabetes mellitus without complications; Z79.84 Long term (current) use of oral hypoglycemic drugs

== ENCOUNTER → 2020-02-15 09:21 | Outpatient (CLI) | payer MEDICAID ==
[2020-02-07 07:44] VITALS: BMI 44.9
[~2020-02-15 09:21] MED LIST changes: +HYDROCODON-ACE1 EA10 PO
== END | disposition home or self-care (01) ==
LOC: D.LABREF 09:21
PROVIDERS: ATTEND Surgery
DX: Z98.890 Other specified postprocedural states (principal); T85.9XXA Unspecified complication of internal prosthetic device, implant and graft, initial encounter

== ENCOUNTER 2020-02-19 18:52 | Inpatient (IN) | payer MEDICAID ==
[~2020-02-19] VITALS: Ht 149.9 cm; Wt 106.2 kg
[2020-02-19 20:11] LABS: BASOPHILS 0.5 % (0-2); EOSINOPHILS 2.8 % (0-7); HEMATOCRIT 38.5 % (36.0-48.0); HEMOGLOBIN 12.6 g/dL (12-16); IMMATURE GRANULOCYTES 1.5 % (0-5); LYMPHOCYTES 22.9 % (15-50); MCH 28.7 pg (26.0-34.0); MCHC 32.7 g/dL (31.0-37.0); MCV 87.7 fL (80.0-100.0); MEAN PLATELET VOLUME 9.6 fL (7.4-10.4); NEUTROPHILS 64.3 % (40-80); PLATELET COUNT 340 10x3/uL (130-400); RBC 4.39 10x6/uL (4.00-5.40)
[2020-02-19 20:31] LABS: BILIRUBIN NEGATIVE (NEGATIVE); GLUCOSE 500 mg/dL (NEGATIVE); KETONE NEGATIVE (NEGATIVE); NITRITE NEGATIVE (NEGATIVE); SPECIFIC GRAVITY 1.015 (1.005-1.020); UROBILINOGEN NORMAL (NORMAL)
[2020-02-19 20:33] LABS: ALBUMIN 2.7 g/dL (3.4-5.0); ALKALINE PHOSPHATASE 285 U/L (30-120); ALT (SGPT) 77 U/L (10-68); AMYLASE - SERUM 29 U/L (25-115); BILIRUBIN - TOTAL 0.57 mg/dL (0.2-1.3); CALCIUM 8.6 mg/dL (8.5-10.1); CARBON DIOXIDE 27.5 mmol/L (21.0-32.0); CHLORIDE - SERUM 90 mmol/L (98-107); LIPASE 59 U/L (73-393); POTASSIUM - SERUM 3.5 mmol/L (3.5-5.1); PROTEIN - SERUM 7.5 g/dL (6.4-8.2); SODIUM 129 mmol/L (136-145); UREA NITROGEN 9 mg/dL (7-18); eGFR NON AFRICAN AMERICAN 65 mL/min (90-120)
[2020-02-19 20:34] LABS: CALC OSMOLALITY 280 mosm/kg (275-300); TROPONIN-I < 0.017 ng/mL (0.000-0.060)
[2020-02-19 20:37] LABS: GLUCOSE 517 mg/dL (74-106)
--- NOTE | 2020-02-19 21:41 | NUR ---
FSBS 375
--- NOTE | 2020-02-20 00:40 | NUR ---
BUSINESS PROCESS ANALYST RN NOTIFED OF PT HX OF ATTEMPTED SUICIED IN 2005 AT THIS TIME. PT FROM ER VIA STRETCHER, RESP EVEN AND UNLABORED, NO DISTRESS NOTED, CL IN REACH, SR UP X 2.
[2020-02-20 01:21] VITALS: BP 135/85
--- NOTE | 2020-02-20 01:51 | NUR ---
I have reviewed this patient and I concur with the Shift Assessment completed by the Licensed Practical Nurse today this shift.
[2020-02-20 01:52] VITALS: BMI 39.9
[2020-02-20 04:05] VITALS: BP 126/67
[2020-02-20 08:32] VITALS: BP 148/64
[2020-02-20 12:57] VITALS: BP 137/40
[2020-02-20 13:35] VITALS: Ht 149.9 cm; Wt 106.2 kg
[2020-02-20 16:08] VITALS: BP 114/62
[2020-02-20 16:49] LABS: BASOPHILS 0.5 % (0-2); EOSINOPHILS 5.4 % (0-7); HEMATOCRIT 35.7 % (36.0-48.0); HEMOGLOBIN 11.4 g/dL (12-16); IMMATURE GRANULOCYTES 2.8 % (0-5); LYMPHOCYTES 29.1 % (15-50); MCH 28.4 pg (26.0-34.0); MCHC 31.9 g/dL (31.0-37.0); MEAN PLATELET VOLUME 9.1 fL (7.4-10.4); NEUTROPHILS 54.2 % (40-80); PLATELET COUNT 325 10x3/uL (130-400); RBC 4.01 10x6/uL (4.00-5.40); WBC 10.2 10x3/uL (4.8-10.8)
[2020-02-20 16:58] LABS: INR 1.06 (0.85-1.17); PROTIME 13.8 SECONDS (11.6-15.0)
[2020-02-20 16:59] LABS: APTT 28.6 SECONDS (22.8-39.4)
[2020-02-20 17:00] LABS: D-DIMER-QUANTITATIVE 0.93 ug/mLFEU (0.20-0.54)
[2020-02-20 17:33] LABS: ALBUMIN 2.3 g/dL (3.4-5.0); ALKALINE PHOSPHATASE 295 U/L (30-120); ALT (SGPT) 88 U/L (10-68); BILIRUBIN - TOTAL 0.48 mg/dL (0.2-1.3); CALCIUM 7.9 mg/dL (8.5-10.1); CARBON DIOXIDE 27.4 mmol/L (21.0-32.0); CHLORIDE - SERUM 100 mmol/L (98-107); POTASSIUM - SERUM 3.5 mmol/L (3.5-5.1); PROTEIN - SERUM 5.8 g/dL (6.4-8.2); SODIUM 136 mmol/L (136-145)
[2020-02-20 17:36] LABS: CALC OSMOLALITY 277 mosm/kg (275-300); CREATININE - SERUM 0.7 mg/dL (0.6-1.3); GLUCOSE 236 mg/dL (74-106); UREA NITROGEN 6 mg/dL (7-18); eGFR NON AFRICAN AMERICAN > 90 mL/min (90-120)
[2020-02-20 17:37] LABS: FERRITIN 233 ng/mL (3-244); LDH 264 U/L (81-234)
[2020-02-20 17:51] LABS: ERYTHROCYTE SEDIMENTATION RATE 86 mm/hr (0-20)
--- NOTE | 2020-02-20 18:03 | NUR ---
I have reviewed this patient and I concur with the Shift Assessment completed by the Licensed Practical Nurse today this shift.
[2020-02-20 20:46] VITALS: BP 129/69
--- NOTE | 2020-02-20 20:57 | NUR ---
PAGED JOE STERN APN AT THIS TIME DUE TO PT FSBS OF 429.
--- NOTE | 2020-02-20 23:28 | NUR ---
PT C/O FEELING CLAMMY AND SWEATING. NEW BLOOD SUGAR IS 200 AND PT TEMP NOW 99.2.
[2020-02-21 04:35] LABS: BASOPHILS 0.8 % (0-2); HEMATOCRIT 37.7 % (36.0-48.0); HEMOGLOBIN 11.8 g/dL (12-16); LYMPHOCYTES 33.3 % (15-50); MCH 27.9 pg (26.0-34.0); MCHC 31.3 g/dL (31.0-37.0); MCV 89.1 fL (80.0-100.0); MEAN PLATELET VOLUME 9.1 fL (7.4-10.4); MONOCYTES 9.4 % (2-11); NEUTROPHILS 46.5 % (40-80); PLATELET COUNT 368 10x3/uL (130-400); RBC 4.23 10x6/uL (4.00-5.40); RDW 13.4 % (11.5-14.5); WBC 9.1 10x3/uL (4.8-10.8)
[2020-02-21 05:08] LABS: C-REACTIVE PROTEIN (CARDIAC) 275.47 mg/L (0.00-3.00)
[2020-02-21 05:12] LABS: ALBUMIN 2.3 g/dL (3.4-5.0); ALKALINE PHOSPHATASE 305 U/L (30-120); ALT (SGPT) 97 U/L (10-68); BILIRUBIN - TOTAL 0.56 mg/dL (0.2-1.3); CALCIUM 8.7 mg/dL (8.5-10.1); CARBON DIOXIDE 28.4 mmol/L (21.0-32.0); CHLORIDE - SERUM 101 mmol/L (98-107); CREATININE - SERUM 0.7 mg/dL (0.6-1.3); POTASSIUM - SERUM 3.3 mmol/L (3.5-5.1); PROTEIN - SERUM 6.7 g/dL (6.4-8.2); SODIUM 139 mmol/L (136-145); eGFR NON AFRICAN AMERICAN > 90 mL/min (90-120)
[2020-02-21 05:22] LABS: CALC OSMOLALITY 281 mosm/kg (275-300); GLUCOSE 186 mg/dL (74-106); UREA NITROGEN 10 mg/dL (7-18)
[2020-02-21 09:52] VITALS: BP 142/92
--- NOTE | 2020-02-21 14:14 | NUR ---
PATIENT COMPLAINS OF ABDOMINAL PAIN AT AN 8. MEDICATED PER MAR WITH MORPHINE 4M IV. PATIENT TOLERATED WELL. FAMILY MEMBER DROPPED OFF PERSONAL BELONGINGS AT AMERICANIZATION TEACHER. BELONGINGS BROUGHT TO PATIENT. COVID LAB RESULTS ARE NEGATIVE. SCANNED RESULTS INTO PATIENT CHART, FAXED TO I,.C. AND SPOKE WITH DISHA IN I.C. PATIENT RESTING COMFORTABLE NOW. WILL CONTINUE TO MONITOR. SR UP X 2 BED IN LOW POSITION AND CALL LIGHT IN REACH.
--- NOTE | 2020-02-21 14:29 | NUR ---
COVID19 test results negative 02/21/2020. Isolation may be discontinued.
[2020-02-21 18:31] VITALS: BP 94/60
--- NOTE | 2020-02-21 19:30 | NUR ---
PT IN BED, AAO X 3, RESP EVEN AND UNLABORED, NO DISTRESS NOTED, CL IN REACH, SR UP X 2
[2020-02-21 20:00] VITALS: BP 132/81
--- NOTE | 2020-02-22 02:50 | NUR ---
I have reviewed this patient and I concur with the Shift Assessment completed by the Licensed Practical Nurse today this shift.
[2020-02-22 04:00] VITALS: BP 133/73
[2020-02-22 06:34] LABS: BASOPHILS 0.8 % (0-2); EOSINOPHILS 6.4 % (0-7); HEMATOCRIT 37.2 % (36.0-48.0); HEMOGLOBIN 11.8 g/dL (12-16); IMMATURE GRANULOCYTES 3.1 % (0-5); LYMPHOCYTES 41.7 % (15-50); MCH 28.5 pg (26.0-34.0); MCHC 31.7 g/dL (31.0-37.0); MCV 89.9 fL (80.0-100.0); PLATELET COUNT 426 10x3/uL (130-400); RBC 4.14 10x6/uL (4.00-5.40); RDW 13.5 % (11.5-14.5); WBC 8.3 10x3/uL (4.8-10.8)
[2020-02-22 07:07] LABS: ALBUMIN 2.2 g/dL (3.4-5.0); ALKALINE PHOSPHATASE 272 U/L (30-120); BILIRUBIN - TOTAL 0.35 mg/dL (0.2-1.3); CALC OSMOLALITY 280 mosm/kg (275-300); CALCIUM 8.3 mg/dL (8.5-10.1); CARBON DIOXIDE 24.4 mmol/L (21.0-32.0); CHLORIDE - SERUM 99 mmol/L (98-107); CREATININE - SERUM 0.7 mg/dL (0.6-1.3); GLUCOSE 162 mg/dL (74-106); POTASSIUM - SERUM 3.8 mmol/L (3.5-5.1); PROTEIN - SERUM 5.7 g/dL (6.4-8.2); SODIUM 139 mmol/L (136-145); UREA NITROGEN 11 mg/dL (7-18); eGFR NON AFRICAN AMERICAN > 90 mL/min (90-120)
[2020-02-22 07:14] LABS: ALT (SGPT) 71 U/L (10-68)
[2020-02-22 08:27] VITALS: BP 119/67
--- NOTE | 2020-02-22 10:36 | NUR ---
PT WITHOUT IV, UNABLE TO SITE ONE. VASCULAR ACCESS NURSE NOT AVAILABLE AT PRESENT. DR LIBIA BURNS, ORDERS TO GATHER EQUIPMENT AND CONSENT FOR CENTRAL LINE PLACEMENT.
[2020-02-22 11:52] VITALS: BP 149/110
[2020-02-22 13:09] LABS: PROCALCITONIN 0.2 ng/mL (0.00-0.08)
--- NOTE | 2020-02-22 13:55 | NUR ---
Nutrition Follow-up: Covid-19 negative. Pt reports decreased appetite for the past couple of weeks. C/o nausea without vomiting this AM although reports vomiting yesterday. Declines Glucerna. Diet: Diabetic PO intake: ~10% this AM Wt: 197# (02/19) Last BM: 02/20 Labs noted: Glu 162, Ca 8.3, Alb 2.2 Meds noted: Nystatin, Pepcid, Remeron, Humalog, Lantus, electrolyte protocol -Encourage PO intake and honor food preferences within diet restrictions. -Monitor wt; noted daily wts ordered. -RD following.
--- NOTE | 2020-02-22 14:00 | NUR ---
CENTRAL LINE PLACED BY DR ANDERSEN AT BEDSIDE. XRAY ORDERED.
[2020-02-22 15:44] VITALS: BP 117/73
[2020-02-22 20:30] VITALS: BP 123/79
--- NOTE | 2020-02-22 21:36 | NUR ---
pt lyingin bed awake alert and oriented X4. no signs of distress noted. pt c/o of pain prn pain medication given. respirations even and unlabored. pt encouarged to call for help when needed. call light with in reach. will continue to monitor
[2020-02-23 00:30] VITALS: BP 107/66
--- NOTE | 2020-02-23 02:14 | NUR ---
PT LYING IN BED AWAKE AND ALERT. PT C/O PAIN. PRN PAIN MEDICATION GIVEN. NO SIGNS OF DISTRESS NOTED. CALL LIGHT WITH IN REACH WILL CONTINUE TO MONITOR
--- NOTE | 2020-02-23 03:33 | NUR ---
I have reviewed this patient and I concur with the Shift Assessment completed by the Licensed Practical Nurse today this shift.
--- NOTE | 2020-02-23 03:33 | NUR ---
I have reviewed this patient and I concur with the Shift Assessment completed by the Licensed Practical Nurse today this shift.
--- NOTE | 2020-02-23 04:35 | NUR ---
shower done and bed lienen changed. no signs of distress. call light with in reach will continue to monitor
[2020-02-23 04:45] VITALS: BP 126/74
[2020-02-23 07:08] LABS: BASOPHILS 0.5 % (0-2); EOSINOPHILS 7.2 % (0-7); HEMATOCRIT 35.6 % (36.0-48.0); HEMOGLOBIN 11.2 g/dL (12-16); IMMATURE GRANULOCYTES 2.4 % (0-5); LYMPHOCYTES 29.1 % (15-50); MCH 28.2 pg (26.0-34.0); MCHC 31.5 g/dL (31.0-37.0); MCV 89.7 fL (80.0-100.0); MEAN PLATELET VOLUME 8.8 fL (7.4-10.4); MONOCYTES 10.1 % (2-11); NEUTROPHILS 50.7 % (40-80); PLATELET COUNT 369 10x3/uL (130-400); RBC 3.97 10x6/uL (4.00-5.40); RDW 13.7 % (11.5-14.5)
[2020-02-23 07:18] LABS: ALBUMIN 2.1 g/dL (3.4-5.0); ALKALINE PHOSPHATASE 218 U/L (30-120); BILIRUBIN - TOTAL 0.29 mg/dL (0.2-1.3); CALCIUM 8.4 mg/dL (8.5-10.1); CARBON DIOXIDE 26.9 mmol/L (21.0-32.0); CHLORIDE - SERUM 105 mmol/L (98-107); CREATININE - SERUM 0.8 mg/dL (0.6-1.3); GLUCOSE 153 mg/dL (74-106); POTASSIUM - SERUM 3.5 mmol/L (3.5-5.1); PROTEIN - SERUM 5.8 g/dL (6.4-8.2); SODIUM 139 mmol/L (136-145); eGFR NON AFRICAN AMERICAN 84 mL/min (90-120)
[2020-02-23 07:23] LABS: ALT (SGPT) 46 U/L (10-68); CALC OSMOLALITY 278 mosm/kg (275-300); UREA NITROGEN 8 mg/dL (7-18)
[2020-02-23 08:46] VITALS: BP 139/85
--- NOTE | 2020-02-23 11:29 | NUR ---
PT LAYING SUPINE, STATED PAIN IN ABDOMEN. PAIN MEDICATION RECIEVED PER ORDER. REQUESTED NAUSEA MEDICATION. SPOKE WITH DR ROE, TELEPHONE ORDER FOR ABBEY RECIEVED. UPON INSPECTING ABDOMEN, INSICION DID NOT HAVE A DRESSING ON IT AND VISUALIZED PATIENT TOUCHING WOUND. INSTRUCTED NOT TO TOUCH SITE, DRESSED WITH 4X4 AND SURGICAL TAPE, CDI. CARLIE DRAIN EMPTIED. CALL LIGHT WITHIN REACH. BED IN LOWEST POSITION. WILL CONTINUE TO MONITOR.
[2020-02-23 12:00] VITALS: BP 123/69
[2020-02-23 16:00] VITALS: BP 133/73
--- NOTE | 2020-02-23 17:59 | NUR ---
I CONCUR WITH THIS DIGITAL ACCOUNT MANAGER ASSESSMENT OF THIS PATIENT.
--- NOTE | 2020-02-23 20:23 | NUR ---
RECEIVED BEDSIDE REPORT. ALERT AND ORIENTED X4. UP AD SABRINA. CVL TO RIGHT CHEST WITH NS AT KVO. DRESSING TO ABD. RT LOWER QUADRANT CDI WITH CARLIE DRAIN. SEROUSSANGEOUS DRAINAGE IN BULB. DENIES ANY NEEDS AT THIS TIME.
[2020-02-23 20:30] VITALS: BP 133/92
[2020-02-24 04:30] VITALS: BP 126/84
--- NOTE | 2020-02-24 07:28 | NUR ---
LAYING SUPINE, RR EVEN AND UNLABORED. DENIES NEEDS OR PAIN AT THIS TIME. CALL LIGHT WITHIN REACH. BED IN LOWEST POSITION. WILL CONTINUE TO MONITOR.
[2020-02-24 08:15] LABS: BASOPHILS 0.6 % (0-2); EOSINOPHILS 5.5 % (0-7); HEMATOCRIT 36.4 % (36.0-48.0); HEMOGLOBIN 11.7 g/dL (12-16); IMMATURE GRANULOCYTES 1.6 % (0-5); LYMPHOCYTES 38.4 % (15-50); MCH 28.7 pg (26.0-34.0); MCHC 32.1 g/dL (31.0-37.0); MCV 89.2 fL (80.0-100.0); MEAN PLATELET VOLUME 8.6 fL (7.4-10.4); MONOCYTES 8.8 % (2-11); NEUTROPHILS 45.1 % (40-80); PLATELET COUNT 318 10x3/uL (130-400); RBC 4.08 10x6/uL (4.00-5.40); WBC 8.6 10x3/uL (4.8-10.8)
[2020-02-24 08:31] LABS: ALBUMIN 2.2 g/dL (3.4-5.0); ALKALINE PHOSPHATASE 213 U/L (30-120); ALT (SGPT) 40 U/L (10-68); BILIRUBIN - TOTAL 0.34 mg/dL (0.2-1.3); CALC OSMOLALITY 280 mosm/kg (275-300); CALCIUM 8.4 mg/dL (8.5-10.1); CARBON DIOXIDE 25.1 mmol/L (21.0-32.0); CHLORIDE - SERUM 106 mmol/L (98-107); CREATININE - SERUM 0.7 mg/dL (0.6-1.3); GLUCOSE 153 mg/dL (74-106); POTASSIUM - SERUM 3.8 mmol/L (3.5-5.1); SODIUM 140 mmol/L (136-145); UREA NITROGEN 9 mg/dL (7-18); eGFR NON AFRICAN AMERICAN > 90 mL/min (90-120)
[2020-02-24 09:00] VITALS: BP 118/80
[2020-02-24 12:00] VITALS: BP 136/86
--- NOTE | 2020-02-24 12:48 | NUR ---
I have reviewed this patient and I concur with the Shift Assessment completed by the Licensed Practical Nurse today this shift.
[2020-02-24 16:00] VITALS: BP 130/81
--- NOTE | 2020-02-24 19:00 | NUR ---
RTEPORT RECEIVED. BEDSIDE SHIFT REPORT COMPLETE. PT IN BED RR EVEN AND UNLABORED. NO DISTRESS OBSERVED. PT C/O OF PAIN, INFORMED HER SHE JUST HAD PAIN MEDICATION. PT UPSET AND STATES THAT THE MORPHINE DOES NOT HELP, BUT ASKS FOR IT REPEAEDLY. CALL LIGHT IN REACH. WILL CTM.
[2020-02-24 20:00] VITALS: BP 164/102
[2020-02-25] VITALS (7 sets, daily range): BP systolic 112–148; BP diastolic 64–88
[2020-02-25 05:58] LABS: BASOPHILS 0.5 % (0-2); EOSINOPHILS 5.3 % (0-7); HEMATOCRIT 36.9 % (36.0-48.0); HEMOGLOBIN 11.6 g/dL (12-16); IMMATURE GRANULOCYTES 1.4 % (0-5); MCH 28.1 pg (26.0-34.0); MCHC 31.4 g/dL (31.0-37.0); MCV 89.3 fL (80.0-100.0); MEAN PLATELET VOLUME 8.8 fL (7.4-10.4); MONOCYTES 9.9 % (2-11); NEUTROPHILS 41.9 % (40-80); PLATELET COUNT 365 10x3/uL (130-400); RBC 4.13 10x6/uL (4.00-5.40); RDW 13.9 % (11.5-14.5); WBC 8.8 10x3/uL (4.8-10.8)
[2020-02-25 06:18] LABS: ALKALINE PHOSPHATASE 194 U/L (30-120); ALT (SGPT) 35 U/L (10-68); BILIRUBIN - TOTAL 0.39 mg/dL (0.2-1.3); CALC OSMOLALITY 280 mosm/kg (275-300); CALCIUM 8.2 mg/dL (8.5-10.1); CARBON DIOXIDE 27.7 mmol/L (21.0-32.0); CHLORIDE - SERUM 105 mmol/L (98-107); CREATININE - SERUM 0.7 mg/dL (0.6-1.3); GLUCOSE 153 mg/dL (74-106); MAGNESIUM - SERUM 1.7 mg/dL (1.8-2.4); PHOSPHOROUS 4.7 mg/dL (2.5-4.9); POTASSIUM - SERUM 3.9 mmol/L (3.5-5.1); PROTEIN - SERUM 5.6 g/dL (6.4-8.2); SODIUM 140 mmol/L (136-145); UREA NITROGEN 9 mg/dL (7-18); eGFR NON AFRICAN AMERICAN > 90 mL/min (90-120)
--- NOTE | 2020-02-25 07:10 | NUR ---
PT LYING IN BED. RESTING QUIETLY. PT STATES SHE HAS NO FURTHER NEEDS AT THIS TIME. BED LOW. CL IN REACH.
--- NOTE | 2020-02-25 13:58 | NUR ---
I have reviewed this patient and I concur with the Shift Assessment completed by the Licensed Practical Nurse today this shift.
--- NOTE | 2020-02-25 19:52 | NUR ---
PT SITTING IN UP IN BED NO SIGNS OF DISTRESS NOTED. RESPIRATIONS EVEN AND UNLABORED. CALL LIGHT WITH IN REACH. BED IS IN LOWEST POSITION. WILL CONTINUE TO MONITOR
--- NOTE | 2020-02-26 03:31 | NUR ---
PT LYING IN BED RSTING WITH EYES CLOSED. NO SIGNS OF DISTRESS NOTED. CALL LIGHT WITH IN REACH. WILL CONTINUE TO MONITOR
[2020-02-26 04:37] VITALS: BP 134/78
[2020-02-26 05:19] LABS: BASOPHILS 0.4 % (0-2); HEMOGLOBIN 11.8 g/dL (12-16); IMMATURE GRANULOCYTES 1.2 % (0-5); LYMPHOCYTES 47.7 % (15-50); MCHC 31.1 g/dL (31.0-37.0); MCV 90.3 fL (80.0-100.0); MEAN PLATELET VOLUME 8.9 fL (7.4-10.4); MONOCYTES 8.2 % (2-11); NEUTROPHILS 35.5 % (40-80); PLATELET COUNT 388 10x3/uL (130-400); RBC 4.21 10x6/uL (4.00-5.40); WBC 7.5 10x3/uL (4.8-10.8)
[2020-02-26 05:38] LABS: CALC OSMOLALITY 281 mosm/kg (275-300); CALCIUM 8.1 mg/dL (8.5-10.1); CARBON DIOXIDE 26.6 mmol/L (21.0-32.0); CHLORIDE - SERUM 105 mmol/L (98-107); CREATININE - SERUM 0.8 mg/dL (0.6-1.3); GLUCOSE 162 mg/dL (74-106); MAGNESIUM - SERUM 1.8 mg/dL (1.8-2.4); POTASSIUM - SERUM 3.8 mmol/L (3.5-5.1); SODIUM 140 mmol/L (136-145); UREA NITROGEN 9 mg/dL (7-18); eGFR NON AFRICAN AMERICAN 84 mL/min (90-120)
--- NOTE | 2020-02-26 07:39 | MORECARE ---
CASE MANAGEMENT DISCHARGE SUMMARY PATIENT: BEREKET ROMANO UNIT: [id number] ADM DATE: 02/19/20 AGE: 39 : 78 SEX: F ROOM/BED: D.0345 AUTHOR: CHASE RAZO PHYSICIAN: REFERRING PHYSICIAN: CYNDEE REZA MD DATE OF SERVICE: 02/26/20 Discharge Plan Patient Name: BEREKET ROMANO Facility: [facility]:[place] : 1980 Planned Disposition: Home with Home Health Anticipated Discharge Date: Discharge Date: Expected LOS: Initial Reviewer: [email or web address] Initial Review Date: 02/25/2020 Generated: 02/26/20 8:38 am Comments DCP- Discharge Planning Updated by [email or web address]: Sheryl Stanton on 02/25/20 4:[address] DC Needs: Order for HHS. CM met with patient regarding DC needs/plans. Patient is drowsy, but answers questions appropriately. PCP: Dr. Leung. [facility] Specialty pharmacy mails some of her medications via [employer]. Patient states she lives in a mobile home, semi-independently with her 9 year/old daughter. Patient has 9 steps entering the home and reports that railing is supposed to be in place by the time she is DC'd home, per the patient's landlord. DME: Nebulizer, C-Pap (unknown DME). CM discussed HHS, Rehab, SNF with patient and she request HHS be set up with an aide to assist with bathing. Patient has no preference for HHS and signed a Patient Choice. States she can safely return to her previous environment. Emergency contact: Mary Mccrary (mother) [phone] drive the patient home. 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 Voices no other needs at this time. Coverage Notice Reviewer: [email or web address] - Sheryl Stanton Notice Issued Date-Time: 02/25/2020 17:44 Notice Type: Patient Choice Letter Notice Delivered To: Patient Relationship to Patient: Self Volunteer Recruitment Coordinator Name: Bereket Romano Delivery Method: HAND - Hand Delivered Chrystal Days: Prior Verbal Notification: Recipient Understood Notice: Yes Recipient Signature: Yes Med Rec Note Co-signed by Attending: Coverage Notice Comment: Patient Choice provided for HHS. Original placed on the chart, one given to patient. Patient Name: BEREKET ROMANO Page [phone] at 0739 All edits/amendments must be made on the electronic document DICTATION DATE: 02/26/20737 BRICKLAYER APPRENTICE: ANJUM 02/26/20737 RPT#: [id number] DC DATE: STATUS: ADM IN [facility] [address] [place] [address] END OF REPORT
[2020-02-26 08:29] VITALS: BP 114/67
[2020-02-26 11:28] VITALS: BP 96/62
--- NOTE | 2020-02-26 13:00 | NUR ---
Nutrition Follow-up: Pt reports nausea and dry heaves. Ate <50% of breakfast this AM. Diet: Diabetic Wt: 233.6# (02/25); 197# (02/19 - stated) Last BM: 02/25 Labs noted: Glu 162, Ca 8.1 Meds noted: Pepcid, Zofran, Nystatin, Lantus, Remeron, Humalog, electrolyte protocol -Encourage PO intake and honor food preferences within diet restrictions. -Monitor wt; noted daily wts ordered. -RD following.
[2020-02-26] MEDS ORDERED: LEVAQUIN750 MG PO (13:53)
[2020-02-26] MEDS ORDERED: FLAGYL500 MG PO (13:53)
--- NOTE | 2020-02-26 14:41 | NUR ---
YOUNG RN DC'D RIGHT CHEST CVL.
--- NOTE | 2020-02-26 14:50 | NUR ---
CENTRAL LINE REMOVED. PRESSURE HELD, SITE WITHOUT BLEEDING. OCCLUSIVE DRESSING APPLIED. INSTRUCTED TO LIE FLAT FOR THIRTY MINUTES AND TO LEAVE DRESSING IN PLACE FOR 24 HOURS.
--- NOTE | 2020-02-26 14:57 | MORECARE ---
CASE MANAGEMENT DISCHARGE SUMMARY PATIENT: KUSUM ROMANO UNIT: [id number] ADM DATE: 02/19/20 AGE: 39 : 78 SEX: F ROOM/BED: D.8109 AUTHOR: CHASE RAZO PHYSICIAN: REFERRING PHYSICIAN: CYNDEE REZA MD DATE OF SERVICE: 02/26/20 Discharge Plan Patient Name: KUSUM ROMANO Facility: [facility]:[place] : 1980 Planned Disposition: Home with Home Health Anticipated Discharge Date: Discharge Date: Expected LOS: Initial Reviewer: [email or web address] Initial Review Date: 02/25/2020 Generated: 02/26/20 3:57 pm Comments DCP- Discharge Planning Updated by [email or web address]: Sheryl Stanton on 02/25/20 4:[address] DC Needs: Order for HHS. CM met with patient regarding DC needs/plans. Patient is drowsy, but answers questions appropriately. PCP: Dr. Leung. [facility]. Specialty pharmacy mails some of her medications via [employer]. Patient states she lives in a mobile home, semi-independently with her 9 year/old daughter. Patient has 9 steps entering the home and reports that railing is supposed to be in place by the time she is DC'd home, per the patient's landlord. DME: Nebulizer, C-Pap (unknown DME). CM discussed HHS, Rehab, SNF with patient and she request HHS be set up with an aide to assist with bathing. Patient has no preference for HHS and signed a Patient Choice. States she can safely return to her previous environment. Emergency contact: Mary Mccrary (mother) [phone] drive the patient home. 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 Voices no other needs at this time. External Providers External Provider: [facility] Next Contact Date: Service Request Date: Service Type: Resolution: Reviewer: Comments: Coverage Notice Reviewer: [email or web address] Martha Stanton Notice Issued Date-Time: 02/25/2020 17:44 Notice Type: Patient Choice Letter Notice Delivered To: Patient Relationship to Patient: Self Retail Sales Director Name: Kusum Romano Delivery Method: HAND - Hand Delivered Chrystal Days: Prior Verbal Notification: Recipient Understood Notice: Yes Recipient Signature: Yes Med Rec Note Co-signed by Attending: Coverage Notice Comment: Patient Choice provided for HHS. Original placed on the chart, one given to patient. Last DP export: 02/26/20 6:39 am Patient Name: KUSUM ROMANO Page [phone] at 1457 All edits/amendments must be made on the electronic document DICTATION DATE: 02/26/201456 OPHTHALMIC ASST: ANJUM 02/26/201456 RPT#: [id number] DC DATE: STATUS: ADM IN [facility] [address] [place] [address] END OF REPORT
--- NOTE | 2020-02-26 14:57 | NUR ---
YOUNG GRIMM DC'D RIGHT CHEST CVL. TELEMETRY DC'D. DISCHARGE INSTRUCTIONS GIVEN TO PT. PT STATES SHE HAS NO FURTHER QUESTIONS. WRITTEN BOLEY SCRIPT GIVEN TO PT. CHART COPY SIGNED. PT CALLED HER SON TO COME PICK HER UP.
--- NOTE | 2020-02-26 15:05 | MORECARE ---
CASE MANAGEMENT DISCHARGE SUMMARY PATIENT: KUSUM ROMANO UNIT: [id number] ADM DATE: 02/19/20 AGE: 39 : [birth year] SEX: F ROOM/BED: D.0789 AUTHOR: DUNG,DOC PHYSICIAN: REFERRING PHYSICIAN: CYNDEE REZA MD DATE OF SERVICE: 02/26/20 Discharge Plan Patient Name: KUSUM ROMANO Facility: [facility]:[place] : 1980 Planned Disposition: Home with Home Health Anticipated Discharge Date: Discharge Date: Expected LOS: Initial Reviewer: [email or web address] Initial Review Date: 02/25/2020 Generated: 02/26/20 4:05 pm Comments DCP- Discharge Planning Updated by [email or web address]: Nichole Dias on 02/26/20 1:[address] Patient Name: KUSUM ROMANO Encounter No: [id number] : 1980 Primary Insurance: [facility] Anticipated DC Date: Planned Disposition: Home with Home Health External Planned Provider: : DCP follow-up note: Patient in agreement with discharge plan. No changes to plan. I called and spoke to Vikki at [employer] [facility] and she will run her insurance. Case management will follow and assist as needed. Nichole Dias DCP- Discharge Planning Updated by [email or web address]: Sheryl Stanton on 02/25/20 4:[address] DC Needs: Order for HHS. CM met with patient regarding DC needs/plans. Patient is drowsy, but answers questions appropriately. PCP: Dr. Leung. [facility]acy[facility]. Specialty pharmacy mails some of her medications via [employer]. Patient states she lives in a mobile home, semi-independently with her 9 year/old daughter. Patient has 9 steps entering the home and reports that railing is supposed to be in place by the time she is DC'd home, per the patient's landlord. DME: Nebulizer, C-Pap (unknown DME). CM discussed HHS, Rehab, SNF with patient and she request HHS be set up with an aide to assist with bathing. Patient has no preference for HHS and signed a Patient Choice. States she can safely return to her previous environment. Emergency contact: Mary Mccrary (mother) [phone] drive the patient home. 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 Voices no other needs at this time. Coverage Notice Reviewer: [id number] Martha Sherylchuy Stanton Notice Issued Date-Time: 02/25/2020 17:44 Notice Type: Patient Choice Letter Notice Delivered To: Patient Relationship to Patient: Self Vehicle Mechanic Name: Kusum Romano Delivery Method: HAND - Hand Delivered Chrystal Days: Prior Verbal Notification: Recipient Understood Notice: Yes Recipient Signature: Yes Med Rec Note Co-signed by Attending: Coverage Notice Comment: Patient Choice provided for HHS. Original placed on the chart, one given to patient. Last DP export: 02/26/20 1:57 pm Patient Name: KUSUM ROMANO Page [phone] at 1505 All edits/amendments must be made on the electronic document DICTATION DATE: 02/26/20 1505 HOT METAL CRANE OPERATOR: ANJUM 02/26/20 1505 RPT#: [id number] DC DATE: STATUS: ADM IN [facility] [address] [place] [address] END OF REPORT
--- NOTE | 2020-02-26 15:19 | NUR ---
PT TAKEN OUT VIA WC WITH ALL BELOGNINGS AND LEFT WITH SON IN PERSONAL CAR.
--- NOTE | 2020-02-27 09:21 | MORECARE ---
CASE MANAGEMENT DISCHARGE SUMMARY PATIENT: KUSUM ROMANO UNIT: [id number] ADM DATE: 02/19/20 AGE: 39 : [birth year] SEX: F ROOM/BED: D.6244 AUTHOR: CHASE RAZO PHYSICIAN: REFERRING PHYSICIAN: CYNDEE REZA MD DATE OF SERVICE: 02/27/20 Discharge Plan Patient Name: KUSUM ROMANO Facility: [facility]:[place] : 1980 Planned Disposition: Home with Home Health Anticipated Discharge Date: Discharge Date: 02/26/2020 Expected LOS: Initial Reviewer: [email or web address] Initial Review Date: 02/25/2020 Generated: 02/27/20 10:21 am Comments DCP- Discharge Planning Updated by [email or web address]: Nichole Dias on 02/26/20 1:[address] Patient Name: KUSUM ROMANO Encounter No: [id number] : 1980 Primary Insurance: [facility] Anticipated DC Date: Planned Disposition: Home with Home Health External Planned Provider: : DCP follow-up note: Patient in agreement with discharge plan. No changes to plan. I called and spoke to Vikki at [employer] and she will run her insurance. Case management will follow and assist as needed. Nichole Dias DCP- Discharge Planning Updated by [email or web address]: Sheryl Stanton on 02/25/20 4:[address] DC Needs: Order for HHS. CM met with patient regarding DC needs/plans. Patient is drowsy, but answers questions appropriately. PCP: Dr. Leung. [facility]acy[facility] . Specialty pharmacy mails some of her medications via [employer]. Patient states she lives in a mobile home, semi-independently with her 9 year/old daughter. Patient has 9 steps entering the home and reports that railing is supposed to be in place by the time she is DC'd home, per the patient's landlord. DME: Nebulizer, C-Pap (unknown DME). CM discussed HHS, Rehab, SNF with patient and she request HHS be set up with an aide to assist with bathing. Patient has no preference for HHS and signed a Patient Choice. States she can safely return to her previous environment. Emergency contact: Mary Mccrary (mother) [phone] the patient home. 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 Voices no other needs at this time. Coverage Notice Reviewer: [email or web address] Martha Stanton Notice Issued Date-Time: 02/25/2020 17:44 Notice Type: Patient Choice Letter Notice Delivered To: Patient Relationship to Patient: Self Machine Maintenance Repairer Name: Kusum Romano Delivery Method: HAND - Hand Delivered Chrystal Days: Prior Verbal Notification: Recipient Understood Notice: Yes Recipient Signature: Yes Med Rec Note Co-signed by Attending: Coverage Notice Comment: Patient Choice provided for HHS. Original placed on the chart, one given to patient. Last DP export: 02/26/20 2:05 pm Patient Name: KUSUM ROMANO Page [phone] at 0921 All edits/amendments must be made on the electronic document DICTATION DATE: 02/27/20920 LAND SURVEY TECHNICIAN: ANJUM 02/27/20920 RPT#: [id number] DC DATE:02/26/20 STATUS: DIS IN [facility] [address] [place] [address] END OF REPORT
--- NOTE | 2020-02-29 13:03 | OP ---
PATIENT NAME: BEREKET ROMANO MEDICAL RECORD: [id number] :[birth year] LOCATION:D.M2 D.2135 ADMISSION DATE:02/19/20 SURGEON: RADHA ANDERSEN MD DATE OF OPERATION: 02/22/2020 PREOPERATIVE DIAGNOSES: 1. Need for IV access. 2. Postoperative subcutaneous abscess. 3. Aspiration pneumonitis. 4. Diabetes mellitus. POSTOPERATIVE DIAGNOSES: 1. Need for IV access. 2. Postoperative subcutaneous abscess. 3. Aspiration pneumonitis. 4. Diabetes mellitus. PROCEDURE: Right subclavian vein triple-lumen central venous line placement. SURGEON: Radha Andersen MD REPORT OF PROCEDURE: The patient's right chest was prepped and draped in sterile fashion. A total of 4 mL of 1% lidocaine with epinephrine was infused into the surrounding tissues. A needle was used to cannulate the right subclavian vein and a guidewire was advanced with ease. Over this wire, a dilator was placed followed by the triple lumen catheter. The catheter aspirated nonpulsatile dark blood and flushed easily in all 3 ports. This was sutured into place with 3-0 silk ties and dressed appropriately. COMPLICATIONS: None. CONDITION: Stable. ANESTHESIA: Local. BLOOD LOSS: Minimal. Procedure done at the bedside. TRANSINT:[id number] Voice Confirmation ID: [id number] DOCUMENT ID: [id number] RADHA ANDERSEN MD at 1303 CC: [id number] DICTATION DATE: 02/22/20 1219 DRUPAL PROGRAMMER: 02/22/201952 DIS IN 02/26/20 [facility] [address] [place] [address]
--- NOTE | 2020-02-29 13:03 | DS ---
PATIENT:BEREKET ROMANO :[birth year] MEDICAL RECORD: [id number] DISCHARGE SUMMARY ADMISSION DATE: 02/19/20 DISCHARGE DATE: 02/26/20 DATE OF ADMISSION: 02/19/2020. DATE OF DISCHARGE: 02/26/2020. ADMISSION DIAGNOSES: 1. Acute postoperative abscess. 2. Sepsis. 3. Morbid obesity. 4. Chronic abdominal pain. 5. Chronic obstructive pulmonary disease. 6. Aspiration pneumonitis. 7. Chronic liver failure. 8. Hypertension. 9. Diabetes mellitus. DISCHARGE DIAGNOSES: 1. Acute postoperative abscess. 2. Sepsis. 3. Morbid obesity. 4. Chronic abdominal pain. 5. Chronic obstructive pulmonary disease. 6. Aspiration pneumonitis. 7. Chronic liver failure. 8. Hypertension. 9. Diabetes mellitus. PROCEDURE: Placement of right subclavian vein central venous line. CONSULTATIONS: Pulmonary and internal medicine. REPORT OF HOSPITALIZATION: The patient was admitted to the hospital through the ER with findings of sepsis related to a postoperative infection with abscess. There was a drain already in place and she was started on IV Tygacil. Cultures were taken, which grew MSSA times 2. The patient was seen by pulmonary because of possibility of Covid 19. The patient had been tested the day previously at an outside facility and the test came back as negative. She has a history of COPD and was treated for what was felt to be aspiration pneumonitis. The patient was started on Levaquin and Flagyl IV. The patient's condition improved over the next few days, the drainage output went from a milky substance to more of a clear serous fluid. We irrigated out the drain with hydrogen peroxide on one occasion. The patient had episodes of fever, but these eventually resolved. She had very high glucose levels on admission, but as the infection was treated, this began to improve. Her initial A1c was noted to be 13.2. On the day of discharge, she has been afebrile for over 24 hours with sustained normal white count. Her glucose levels were much improved and she was tolerating a diet, despite having some nausea. Her drain output at that time was clear serous and she was actually off the Tygacil for over 24 hours with no fever and a normal white count. At that point she felt that she was stable for discharge home. DISCHARGE INSTRUCTIONS: DISCHARGE SUMMARY REPORT [id number] BEREKET ROMANO 1. Return to clinic or call with any questions or concerns, fevers, chills, nausea, vomiting or worsening abdominal pain. 2. Record drain output daily. ACTIVITIES: No heavy lifting or straining for 6 weeks from the time of her original surgery. FOLLOWUP: In clinic with me in 5 days. DISCHARGE MEDICATIONS: Resume home medications with the inclusion of Levaquin and Flagyl. TRANSINT:[id number] Voice Confirmation ID: [id number] DOCUMENT ID: [id number] RADHA ANDERSEN MD at 1303 CC: [id number] DICTATION DATE: 02/26/20 1406 GLYCERINE PLANT OPERATOR: 02/27/20 0132 DIS IN 02/26/20 [facility] [address] [place] [address]
== END 2020-02-26 15:20 | disposition home health service (06) | DRG 862 ==
LOC: D.ER 18:52 → D.M2 23:25 → D.MS 23:25 → D.M2 23:26
PROVIDERS: Family Medicine; Internal Medicine Nephrology; Internal Medicine Pulmonary Disease; Surgery; ADMIT Surgery; ATTEND Surgery
PROC: 05H533Z Insertion of Infusion Device into Right Subclavian Vein, Percutaneous Approach (ICD-10-PCS; principal; 2020-02-22)
DX: T81.40XA Infection following a procedure, unspecified, initial encounter (principal); J69.0 Pneumonitis due to inhalation of food and vomit; L02.211 Cutaneous abscess of abdominal wall; J44.0 Chronic obstructive pulmonary disease with (acute) lower respiratory infection; E87.1 Hypo-osmolality and hyponatremia; J98.11 Atelectasis; G89.18 Other acute postprocedural pain; R10.9 Unspecified abdominal pain; I10 Essential (primary) hypertension; J45.909 Unspecified asthma, uncomplicated; K21.9 Gastro-esophageal reflux disease without esophagitis; E11.40 Type 2 diabetes mellitus with diabetic neuropathy, unspecified; E66.01 Morbid (severe) obesity due to excess calories; K74.60 Unspecified cirrhosis of liver; F41.8 Other specified anxiety disorders; Z68.39 Body mass index [BMI] 39.0-39.9, adult; Y83.9 Surgical procedure, unspecified as the cause of abnormal reaction of the patient, or of later complication, without mention of misadventure at the time of the procedure

== ENCOUNTER → 2020-03-03 10:44 | Outpatient (CLI) | payer MEDICAID ==
[2020-02-20 13:35] VITALS: BMI 39.8
[~2020-03-03 10:44] MED LIST changes: +FLAGYL500 MG PO; +LEVAQUIN750 MG PO
== END | disposition home or self-care (01) ==
LOC: D.RAD 10:44
PROVIDERS: ATTEND Surgery
DX: R50.9 Fever, unspecified (principal); R05 Cough

== ENCOUNTER → 2020-06-02 09:42 | Outpatient (CLI) | payer MEDICAID ==
[2020-02-20 13:35] VITALS: BMI 39.8
== END | disposition home or self-care (01) ==
LOC: D.LAB 09:42
PROVIDERS: ATTEND Internal Medicine Pulmonary Disease
DX: Z11.59 Encounter for screening for other viral diseases (principal)

== ENCOUNTER → 2020-12-18 03:37 | Outpatient (CLI) | payer MEDICAID ==
[2020-10-28 17:27] VITALS: BMI 48.6
[~2020-12-18 03:37] MED LIST changes: +METOPROLOL TART25 MG PO; +NEURONTIN600 MG PO; +OXYCONTIN10 MG PO
[2020-12-18 04:50] LABS: KETONE NEGATIVE (NEGATIVE); NITRITE NEGATIVE (NEGATIVE); UROBILINOGEN NORMAL mg/dL (< 2)
[2020-12-18 04:51] LABS: BILIRUBIN NEGATIVE (NEGATIVE)
== END | disposition home or self-care (01) ==
LOC: D.LABREF 03:37
PROVIDERS: ATTEND Emergency Medicine
DX: N39.0 Urinary tract infection, site not specified (principal)

== ENCOUNTER 2021-02-09 21:14 | Emergency (ER) | payer SELFPAY ==
[~2021-02-09] VITALS: Ht 149.9 cm; Wt 105.5 kg
[2021-02-09 21:19] VITALS: Ht 149.9 cm; Wt 105.5 kg
[2021-02-09] MEDS ORDERED: AUGMENTIN 875-11 TAB PO (21:39)
[2021-02-09 22:22] VITALS: BP 160/78
== END 2021-02-09 22:01 | disposition home or self-care (01) ==
LOC: D.ER 21:14
DX: S71.151A Open bite, right thigh, initial encounter (principal); W54.0XXA Bitten by dog, initial encounter; Y93.9 Activity, unspecified; Y92.9 Unspecified place or not applicable

== ENCOUNTER → 2021-03-03 11:59 | Outpatient (CLI) | payer MEDICAID ==
[2021-02-09 21:19] VITALS: BMI 46.9
[2021-03-03 12:26] LABS: BASOPHILS 0.5 % (0-2); EOSINOPHILS 1.5 % (0-7); HEMATOCRIT 44.1 % (36.0-48.0); HEMOGLOBIN 14.5 g/dL (12-16); IMMATURE GRANULOCYTES 0.5 % (0-5); LYMPHOCYTE ABS# 2.99 10x3/uL (1.18-3.74); LYMPHOCYTES 36.8 % (15-50); MCH 27.2 pg (26.0-34.0); MCHC 32.9 g/dL (31.0-37.0); MCV 82.7 fL (80.0-100.0); MEAN PLATELET VOLUME 10.8 fL (7.4-10.4); MONOCYTES 4.3 % (2-11); NEUTROPHIL ABS# 4.58 10x3/uL (1.56-6.13); NEUTROPHILS 56.4 % (40-80); RBC 5.33 10x6/uL (4.00-5.40); RDW 13.8 % (11.5-14.5); WBC 8.1 10x3/uL (4.8-10.8)
[2021-03-03 12:40] LABS: PLATELET COUNT 297 10x3/uL (130-400)
== END | disposition home or self-care (01) ==
LOC: D.LABREF 11:59
PROVIDERS: ATTEND Internal Medicine Pulmonary Disease
DX: J45.909 Unspecified asthma, uncomplicated (principal)